=== PATIENT | female | born 1955 | race Caucasian/White ===

== ENCOUNTER 2024-05-22 20:24 | Outpatient (OUT) | payer MEDICARE, SELFPAY | END 2024-05-22 20:25 | disposition home or self-care (01) | LOC: SLEEP 20:31 | PROVIDERS: PCP Physician Assistant; Visit Provider Physician Assistant | DX: G47.33 Obstructive sleep apnea (adult) (pediatric) (principal) | CPT/HCPCS: 95810 ==

== ENCOUNTER 2024-06-01 09:09 | Outpatient (RCR) | payer MEDICARE, SELFPAY | END 2024-09-25 15:03 | disposition home or self-care (01) | LOC: OT 09:09 | PROVIDERS: PCP Physician Assistant; Visit Provider Physician Assistant | DX: I89.0 Lymphedema, not elsewhere classified (principal); E66.01 Morbid (severe) obesity due to excess calories; S81.801A Unspecified open wound, right lower leg, initial encounter; S81.802A Unspecified open wound, left lower leg, initial encounter | CPT/HCPCS: 97140; 97166; 97535 ==

== ENCOUNTER 2024-06-12 14:12 | Outpatient (OUT) | payer MEDICARE, SELFPAY | END 2024-06-12 14:13 | disposition home or self-care (01) | LOC: WC 14:12 | PROVIDERS: PCP Physician Assistant; Visit Provider Physician Assistant | DX: I87.313 Chronic venous hypertension (idiopathic) with ulcer of bilateral lower extremity (principal); L97.821 Non-pressure chronic ulcer of other part of left lower leg limited to breakdown of skin; L97.811 Non-pressure chronic ulcer of other part of right lower leg limited to breakdown of skin; I89.0 Lymphedema, not elsewhere classified | CPT/HCPCS: G0463 ==

== ENCOUNTER 2024-06-26 19:55 | Outpatient (OUT) | payer MEDICARE, SELFPAY ==
--- OUTSIDE RECORDS SUMMARY | 2024-06-26 19:58 | XMS_ITS | CCD ---
Author Organization [facility] Care Team Providers Care Generalist Name Role Phone Cathy Rangel Primary Care Provider [phone] PIPER TURPIN Referring Unavailable HEMCATHY GOMES Primary Care Unavailable CATHY RANGEL Primary Care Unavailable PIEPR TURPIN Referring Unavailable HEMCATHY GOMES Primary Care Unavailable PIPER TURPIN Referring Unavailable SHANIQUA PINA Consulting Unavailable CATHY RANGEL Primary Care Unavailable JACK BELL Admitting Unavailable JACK BELL Attending Unavailable DARREN CISNEROS Consulting Unavailable Cathy Rangel Primary Care Provider Cathy Maria Unavailable [phone] Shaw Bella MD Primary Care Provider DO Nancy Elizabeth Primary Care Provider [phone] MD Raza Castro II Attending Provider [phone] DO Nancy Elizabeth Primary Care Provider [phone] MD Raza Castro II Attending Provider CATHY RANGEL Referring Unavailable HEMCATHY GOMES Primary Care Unavailable HEMCATHY GOMES Referring Unavailable HEMCATHY GOMES Primary Care Unavailable CATHY RANGEL Referring Unavailable CATHY RANGEL Primary Care Unavailable MD Raza Castro II Attending Provider [phone] Raza Castro II Admitting UnavailRaza Disla II Attending UnavailNancy Ayala Primary Care Unavailable Raza Castro II Admitting Unavailbecky Castro II, Raza Rudolph Attending UnavailNancy Ayala Primary Care Unavailable Raza Castro II Admitting Unavailabl e Raza Castro II Attending Unavailabl e JEFFRIES, JENNIFER T Attending Unavailable SHEELA ELIZABETH Attending Unavailable CATHY RANGEL Attending Unavailable CATHY RANGEL Attending Unavailable JENNIFER JEFFRIES Attending Unavailable CATHY RANGEL Attending Unavailable CATHY RANGEL Attending Unavailable CATHY RANGEL Attending Unavailable JENNIFER JEFFRIES Attending Unavailable CATHY RANGEL Attending Unavailable Allergies Allergy Classification Reported Allergen(s) Allergy Type Date of Onset Reaction(s) Facility (5 sources) Acetaminophen / Codeine Drug Allergy 07-27-2022 Other [facility] Work Phone: Medications Current Medications Medication Drug Class(es) Dates Sig (Normalized) Sig (Original) acetaminophen 325 mg oral tablet (10 sources) Start: 05-30-2020 take 650 mg by mouth twice daily, then take 4000 mg by mouth every twenty-four hours 650 mg, Oral, 2 TIMES DAILY, First dose on Tue05/30/20 at 0900 Maximum dose of acetaminophen is 4000 mg from all sources in 24 hours. Start: 05-30-2020 acetaminophen (TYLENOL) tablet 650 mg take 2 tablets by mo [facility] twice daily acetaminophen (TYLENOL) 325 MG tablet Take 650 mg by mouth 2 times daily 0 Suspended acetaminophen 325 mg / HYDROcodone bitartrate 5 mg oral tablet (5 sources) Opioid Agonist Start: 05-31-2020 End: 06-03-2020 take 1 tablet by mouth every eight hours as needed for pain HYDROcodone-acetaminophen (NORCO) 5-325 MG per tablet Indications: Multiple subsegmental pulmonary emboli without acute cor pulmonale Take 1 tablet by mouth every 8 hours as needed for Pain for up to 3 days. 9 tablet 0 05/31/2020 06/03/2020 Active Start: 05-30-2020 HYDROcodone-ac etaminophen (NORCO) 5-325 MG per tablet 1 tablet Start: 01-19-2019 take 1 tablet by isaak every twelve hours HYDROcodone-acetaminophen (NORCO) 5-325 MG per tablet take 1 tablet by mouth every 12 hours 0 01/19/2019 Active acetaminophen 325 mg / oxyCODONE hydrochloride 5 mg oral tablet (4 sources) Opioid Agonist Start: 04-07-2022 End: 04-13-2022 take 1 tablet by mouth every six hours as needed for pain oxyCODONE-acetaminophen (PERCOCET) 5-325 MG per tablet Indications: S/P laparoscopic surgery Take 1 tablet by mouth every 6 hours as needed for Pain for up to 5 days. 18 tablet 0 04/08/2022 04/13/2022 Active Start: 04-29-2020 End: 05-06-2020 take 1 tablet by mouth every six hours as needed for pain oxyCODONE-acetaminophen (PERCOCET) 5-325 MG per tablet Indications: S/P bariatric surgery Take 1 tablet by mouth every 6 hours as needed for Pain for up to 7 days. 28 tablet 0 04/29/2020 05/06/2020 Active Start: 04-28-2020 oxyCODONE-acet aminophen (PERCOCET) 5-325 MG per tablet 2 tablet albuterol 0.833 mg/ml / ipratropium bromide 0.167 mg/ml inhalant solution (1 source) Anticholinergic, beta2-Adrenergic Agonist Start: 04-28-2020 ipratropium-albuterol (DUONEB) nebulizer solution 1 ampule apixaban 5 mg oral tablet (6 sources) Factor Xa Inhibitor Start: 12-10-2020 take 1 tablet by mouth twice daily ELIQUIS 5 MG TABS tablet take 1 tablet by mouth twice a day for 30 DAYS 0 12/10/2020 Active Start: 06-08-2020 take 1 tablet by isaak th twice daily apixaban (ELIQUIS) 5 MG TABS tablet Take 1 tablet by mouth 2 times daily 60 tablet 3 06/08/2020 Active Start: 06-08-2020 take 1 tablet by isaak th twice daily apixaban (ELIQUIS) 5 MG TABS tablet Take 1 tablet by mouth 2 times daily 60 tablet 3 06/08/2020 Active Start: 05-31-2020 End: 06-07-2020 take 2 tablets by mouth twice daily apixaban (ELIQUIS) 5 MG TABS tablet Take 2 tablets by mouth 2 times daily for 7 days 28 tablet 0 05/31/2020 06/07/2020 Active Start: 05-30-2020 End: 06-06-2020 apixaban (ELIQUIS) tablet 10 mg atorvastatin 20 mg oral tablet (20 sources) HMG-CoA Reductase Inhibitor Start: 11-10-2023 take 20 mg by mouth once daily Atorvastatin Active 20 MG PO Daily November 10, 2023 1:00am Start: 03-17-2023 take 1 tablet by isaak th once daily in the evening atorvastatin (Lipitor) 20 MG tablet Indications: Pure hypercholesterolemia (CMS/HCC) TAKE 1 TABLET BY MOUTH ONCE DAILY IN THE EVENING 90 tablet 3 03/17/2023 Active Start: 03-31-2019 take 20 mg by mouth once daily 20 mg, Oral, DAILY, First dose on Alysia 04/08/22 at 0900, Until Discontinued busPIRone hydrochloride 10 mg oral tablet (12 sources) Start: 11-10-2023 take 10 mg by mouth twice daily Buspirone Active 10 MG PO Twice daily November 10, 2023 1:00am Start: 07-12-2023 take 1 tablet by isaak th twice daily as needed for anxiety busPIRone (Buspar) 10 MG tablet Indications: Generalized anxiety disorder (CMS/HCC) Take 1 tablet (10 mg) by mouth 2 (two) times a day as needed (Anxiety). 60 tablet 2 07/12/2023 Active cyclobenzaprine hydrochloride 10 mg oral tablet (2 sources) Muscle Relaxant Start: 04-07-2022 End: 04-18-2022 take 1 tablet by mouth three times daily as needed for muscle spasms cyclobenzaprine (FLEXERIL) 10 MG tablet Take 1 tablet by mouth 3 times daily as needed for Muscle spasms 30 tablet 0 04/08/2022 04/18/2022 Active diclofenac sodium 0.01 mg/mg topical gel (7 sources) Nonsteroidal Anti-inflammatory Drug Start: 11-10-2023 Diclofenac Sodium Active 2 GM TOPICAL as directed 10 25November 10, 2023 1:00am DULoxetine 60 mg delayed release oral capsule (16 sources) Serotonin and Norepinephrine Reuptake Inhibitor Start: 11-10-2023 take 60 mg by mouth twice daily Duloxetine Active 60 MG PO Twice daily November 10, 2023 1:00am Start: 07-12-2023 End: 11-08-2023 take 1 capsule by mouth in the morning DULoxetine (Cymbalta) [address] capsule Indications: Moderate episode of recurrent major depressive disorder (HCC) (CMS/HCC) Take 1 capsule (60 mg) by mouth in the morning and 1 capsule (60 mg) before bedtime. 200 capsule 3 11/08/2023 Active Start: 12-08-2021 take 1 capsule by mo uth once daily 30 mg, Oral, DAILY, First dose on Alysia 04/08/22 at 0900, Until Discontinued Do not crush or break. May add contents of capsule to apple juice or apple sauce, but not chocolate. ergocalciferol 1.25 mg oral capsule (5 sources) Provitamin D2 Compound Start: 04-20-2024 End: 05-22-2024 take 1250 ug by mouth every week Ergocalciferol (Vitamin D2) Active 1250 MCG PO Q7D 8 60 May 22, 2024 7:56am Start: 02-03-2021 take 1 capsule by mo [facility] every week vitamin D (ERGOCALCIFEROL) 1.25 MG (03205 UT) CAPS capsule Indications: Vitamin D deficiency take 1 capsule by mouth every week 8 capsule 0 02/03/2021 Suspended 2 ml famotidine 10 mg/ml injection (1 source) Histamine-2 Receptor Antagonist Start: 04-28-2020 famotidine (PEPCID) injection 20 mg hydroCHLOROthiazide 25 mg oral tablet (20 sources) Thiazide Diuretic Start: 11-10-2023 take 25 mg by mouth once daily Hydrochlorothiazide Active 25 MG PO Daily November 10, 2023 1:00am Start: 07-14-2023 take 1 tablet by isaak th once daily hydroCHLOROthiazide (HYDRODiuril) 25 MG tablet Indications: Essential hypertension (CMS/HCC) TAKE 1 TABLET BY MOUTH ONCE DAILY 90 tablet 3 07/14/2023 Active Start: 04-08-2022 take 25 mg by mouth once daily 25 mg, Oral, DAILY, First dose on Alysia 04/08/22 at 0900, Until Discontinued Start: 01-22-2019 End: 04-29-2020 take 1 tablet by mouth once daily in the morning hydrochlorothiazide (HYDRODIURIL) 25 MG tablet take 1 tablet by mouth every morning 0 01/22/2019 04/29/2020 Discontinued (Stop Taking at Discharge) take 1 tablet by isaak th twice daily hydroCHLOROthiazide (HYDRODIURIL) 25 MG tablet Take 25 mg by mouth 2 times daily 0 Active ibuprofen 200 mg oral tablet (1 source) Nonsteroidal Anti-inflammatory Drug take 2 tablets by mouth twice daily ibuprofen (ADVIL;MOTRIN) 200 MG tablet Take 400 mg by mouth 2 times daily 0 Active levothyroxine sodium 0.125 mg oral capsule (20 sources) l-Thyroxine Start: take 125 ug by mouth once daily Levothyroxine Active 125 MCG PO Daily November 10, 2023 1:00am Start: 04-11-2023 take 1 tablet by isaak th once daily in the morning levothyroxine (Synthroid, Levoxyl) 125 MCG tablet Indications: Acquired hypothyroidism (CMS/HCC) TAKE 1 TABLET BY MOUTH ON AN EMPTY STOMACH ONCE DAILY IN THE MORNING 90 tablet 3 04/11/2023 Active Start: 04-14-2019 take 125 ug by mouth once daily 125 mcg, Oral, DAILY, First dose on Alysia 04/08/22 at 0800, Until Discontinued Tube feeding (TF) interaction, obtain physician order to manage, recommend holding TF for 30 minutes before and after dose. 2 ml midazolam 1 mg/ml injection (1 source) Benzodiazepine Start: 04-28-2020 midazolam (CUBA SED) injection 0.5 mg Multiple Vitamin (MULTI-VITAMIN DAILY PO) (3 sources) Multiple Vitamin (MULTI-VITAMIN DAILY PO) Take by mouth 0 Active Multiple Vitamin (multivitamin) capsule (5 sources) Multiple Vitamin (multivitamin) capsule as directed Orally 0 Active Multivitamin preparation (7 sources) Start: 11-10-2023 take 1 tablet by mouth once daily Multivitamin Active 1 TAB PO Daily November 10, 2023 1:00am Start: 11-10-2023 take 1 tablet by isaak th once daily Multivitamin Active 1 TAB PO Daily November 10, 2023 12:00am 24 hr nicotine 0.875 mg/hr transdermal system (1 source) Cholinergic Nicotinic Agonist Start: 05-30-2020 apply 1 dose transdermal route once daily as needed 1 patch, Transdermal, Administer over 24 Hours, DAILY PRN, if patient is a smoker and requests nicotine replacemnt therapy, Starting Tue05/30/20 at 0522 Apply new patch to nonhairy, clean, dry skin on the upper body or upper outer arm. Rotate patch sites. Notify pharmacy if patient or provider prefers patch to be removed at bedtime and replaced in the morning. Hazardous Medication -- Refer to facility policy for handling and disposal. oxybutynin chloride 5 mg oral tablet (20 sources) Cholinergic Muscarinic Antagonist Start: 11-10-2023 take 5 mg by mouth once daily Oxybutynin Chloride Active 5 MG PO Daily November 10, 2023 1:00am Start: 08-05-2023 take 1 tablet by isaak th twice daily oxybutynin (Ditropan) 5 MG tablet Indications: Urinary incontinence, unspecified type TAKE 1 TABLET BY MOUTH TWICE DAILY 180 tablet 3 08/05/2023 Active Start: 04-14-2019 take 5 mg by mouth twice daily 5 mg, Oral, 2 TIMES DAILY, First dose on Tue04/08/22 at 0900, Until Discontinued pantoprazole 20 mg delayed release oral tablet (20 sources) Proton Pump Inhibitor Start: 11-10-2023 take 20 mg by mouth once daily Pantoprazole Active 20 MG PO Daily November 10, 2023 1:00am Start: 04-11-2023 take 1 tablet by isaak th once daily pantoprazole (ProtoNix) 20 MG EC tablet Indications: GERD without esophagitis TAKE 1 TABLET BY MOUTH ONCE DAILY 90 tablet 3 04/11/2023 Active Start: 07-08-2021 take 20 mg by mouth once daily 20 mg, Oral, DAILY, First dose on Tue04/08/22 at 0900, Until Discontinued Do not crush or break. Start: 04-28-2021 take 1 tablet by isaak th once daily pantoprazole (PROTONIX) 20 MG tablet take 1 tablet by mouth once daily 30 tablet 3 04/28/2021 Active Start: 12-23-2020 take 1 tablet by isaak th once daily pantoprazole (PROTONIX) 20 MG tablet take 1 tablet by mouth once daily 30 tablet 3 12/23/2020 Active Start: 12-19-2019 take 20 mg by mouth once daily 20 mg, Oral, DAILY, First dose on Tue05/30/20 at 0900 Do not crush or break. polyethylene glycol [id number] mg powder for oral solution (1 source) Osmotic Laxative Start: 05-30-2020 17 g, Oral, D AILY PRN, Constipation, Starting Tue05/30/20 at 0522 First line therapy for constipation Promethazine (4 sources) Phenothiazine Start: 05-30-2020 promethazine ( PHENERGAN) tablet 12.5 mg Start: 04-28-2020 End: 05-06-2020 take 1 tablet by mouth every six hours as needed for nausea promethazine (PHENERGAN) 25 MG tablet Take 1 tablet by mouth every 6 hours as needed for Nausea 30 tablet 0 04/29/2020 05/06/2020 Active Start: 04-28-2020 promethazine ( PHENERGAN) injection 12.5 mg 72 hr scopolamine 0.0139 mg/hr transdermal system (1 source) Anticholinergic Start: 04-28-2020 scopolamine (TRANSDERM-SCOP) transdermal patch 1 patch warfarin sodium 2.5 mg oral tablet (15 sources) Vitamin K Antagonist Start: 11-10-2023 Warfarin Active 2.5 MG PO Every 48 hours November 10, 2023 1:00am on odd numbered days Start: 11-08-2023 take 1 tablet by isaak once daily warfarin (Coumadin) 2.5 MG tablet Indications: Personal history of pulmonary embolism Take 1 tablet (2.5 mg) by mouth See administration instructions 5 mg daily except for 2.5 mg on Tuesday. 200 tablet 3 11/08/2023 Active Start: 10-31-2023 End: 11-07-2023 warfarin (Coumadin) 2.5 MG t ablet Indications: Personal history of pulmonary embolism TAKE 2 TABLETS BY MOUTH ONCE DAILY EXCEPT FOR 1 TABLET ON TUESDAY AND TUESDAY . AND ON TUESDAY TAKE 1 AND 1/2 TABLETS 98 tablet 3 10/31/2023 11/07/2023 Discontinued Start: 04-08-2022 End: 04-09-2022 warfarin (COUMADIN) tablet 5 mg Start: 12-31-2021 take 2 tablets by mo [facility] once daily warfarin (COUMADIN) 2.5 MG tablet Take 2 tablets by mouth as directed every day, EXCEPT for 3 tablets on Tuesday and Tuesday. 0 12/31/2021 Suspended zolpidem tartrate 5 mg oral tablet (12 sources) gamma-Aminobutyric Acid-ergic Agonist Start: 07-12-2023 End: 07-11-2024 take 5 mg by mouth once daily at bedtime Zolpidem Active 5 MG PO Daily at bedtime November 10, 2023 1:00am Completed/Discontinued Medications Medication Drug Class(es) Dates Sig (Normalized) Sig (Original) Aspirin-Acetaminoph en-Caffeine (EXCEDRIN EXTRA STRENGTH PO) (6 sources) End: 04-29-2020 Aspirin-Acetaminophe n-Caffeine (EXCEDRIN EXTRA STRENGTH PO) Take by mouth 0 04/29/2020 Discontinued (Stop Taking at Discharge) Aspirin-Acetamin ophen-Caffeine (EXCEDRIN EXTRA STRENGTH PO) Take by mouth 0 Suspended Aspirin-Acetamin ophen-Caffeine (EXCEDRIN EXTRA STRENGTH PO) Take by mouth 0 Active 30 ml bupivacaine hydrochloride 5 mg/ml injection (1 source) Amide Local Anesthetic Start: 04-28-2020 End: 04-28-2020 bupivacaine (PF) (MARCAINE) 0.5 % injection 200 mg Start: 04-28-2020 End: 04-28-2020 bupivacaine (PF) (MARCAINE) 0.5 % injection 200 mg Calcium Carbonate Antacid (T UMS PO) (4 sources) Calcium Carbonat e Antacid (TUMS PO) Take by mouth 0 Suspended Calcium Carbonat e Antacid (TUMS PO) Take by mouth 0 Active calcium chloride 0.0014 meq/ ml / potassium chloride 0.004 meq/ml / sodium chloride 0.103 meq/ml / sodium lactate 0.028 meq/ml injectable solution (3 sources) Start: 04-07-2022 End: 04-07-2022 IntraVENous, at 120 mL/hr, CONTINUOUS, Starting on Tue04/07/22 at 1245 Start: 04-28-2020 End: 04-28-2020 lactated ringers infusion ceFAZolin (ANCEF) 1 g in dextrose 5 % 50 mL IVPB (1 source) Start: 04-28-2020 End: 04-28-2020 ceFAZolin (ANCEF) 1 g in dextrose 5 % 50 mL IVPB cholecalciferol 1000 unt oral capsule (3 sources) Vitamin D End: 04-29-2020 vitamin D 25 MCG (1000 UT) CAPS Take by mouth 0 04/29/2020 Discontinued (Stop Taking at Discharge) 0.4 ml enoxaparin sodium 100 mg/ml prefilled syringe (1 source) Low Molecular Weight Heparin Start: 04-07-2022 End: 04-08-2022 inject 40 mg by subcutaneous injection once daily 40 mg, SubCUTAneous, DAILY, First dose on Tue04/07/22 at 1300, Until Discontinued Indication of Use: Prophylaxis-DVT/ PE eszopiclone 2 mg oral tablet (1 source) take 1 tablet by mouth once daily as needed eszopiclone (LUNESTA) 2 MG TABS Take 2 mg by mouth nightly. prn 0 Suspended famotidine (PEPCID) 20 mg in sodium chloride (PF) 10 mL injection (1 source) Start: 04-07-2022 End: 04-08-2022 take 20 mg intravenously twice daily 20 mg, IntraVENous, 2 TIMES DAILY, First dose on Tue04/07/22 at 1300, Until Discontinued IV Push over minimum of 2 minutes - Dilute with 10 mL NS 2 ml fentaNYL 0.05 mg/ml injection (1 source) Opioid Agonist Start: 04-28-2020 End: 04-28-2020 fentaNYL (SUBLIMAZE) injection 50 mcg 1 ml heparin sodium, porcine 1000 unt/ml injection (4 sources) Unfractionated Heparin, Anti-coagulant Start: 05-30-2020 End: 05-30-2020 heparin (porcine) injection 7,910 Units Start: 05-30-2020 End: 05-30-2020 heparin 25,000 units in dext jia 5% 250 mL infusion Start: 04-28-2020 End: 04-28-2020 heparin (porcine) injection 5,000 Units 1 ml HYDROmorphone hydrochloride 1 mg/ml cartridge (2 sources) Opioid Agonist Start: 04-07-2022 End: 04-08-2022 HYDROmorphone (DILAUDID) 1.5mg IV is equivalent to morphine 10mg IV 1 mg, IntraVENous, EVERY 3 HOURS PRN, 6 doses, Starting on Tue04/07/22 at 2003, Until Alysia 04/08/22 at 0727, Pain Severe (7-10) If oral and IV narcotics ordered, use oral first and only use IV if oral is ineffective or cannot take oral. Do Not give oral and IV within 1 hour of each other unless specifically ordered. Start: 04-28-2020 HYDROmorphone (DILAUDID) injection 1 mg Iohexol (1 source) Radiographic Contrast Agent Start: 05-30-2020 End: 05-30-2020 iohexol (OMNIPAQUE 350) solution 75 mL iohexol (OMNIPAQUE 240) injection 30 mL (1 source) Start: 04-29-2020 End: 04-29-2020 iohexol (OMNIPAQUE 240) injection 30 mL iohexol (OMNIPAQUE 240) injection 50 mL (2 sources) Start: 04-07-2022 End: 04-07-2022 iohexol (OMNIPAQUE 240) injection 50 mL Start: 05-30-2020 End: 05-30-2020 iohexol (OMNIPAQUE 240) inje ction 50 mL iopamidol (ISOVUE-370) 76 % injection 75 mL (1 source) Start: 04-07-2022 End: 04-07-2022 iopamidol (ISOVUE-370) 76 % injection 75 mL 100 ml magnesium sulfate 40 mg/ml injection (3 sources) Start: 04-08-2022 End: 04-08-2022 magnesium sulfate 4000 mg in 100 mL IVPB premix Start: 05-30-2020 take 1 mg intravenous route every hour as needed 1 g, Intravenous, at 100 mL/hr, Administ er over 1 Hours, PRN, Other, Per IV Magnesium Replacement Protocol, Starting Tue05/30/20 at 0522 Mg Lab Replacement Action 1.4- 1.6 1 gram IVPB x 2 doses &nb sp; (2 gram Total) 1.0-1.3 1 gram IVPB x 4 doses &nb sp; (4 gram Total) <1.0 CALL PHYSICIAN and &n bsp; 1 gram IVPB x 4 doses (4 gram Total) Infuse at 1 gram/hr Repeat Mag level next AM Protocol not for use in Patients with CrCl<30ml/min Start: 05-30-2020 End: 05-30-2020 magnesium sulfate 2 g in 50 mL IVPB premix 100 ML metroNIDAZOLE 5 MG/ML Injection (1 source) Nitroimidazole Antimicrobial Start: 04-28-2020 End: 04-29-2020 metronidazole (FLAGYL) 500 mg in NaCl 100 mL IVPB premix 1 ml morphine sulfate 4 mg/ml cartridge (2 sources) Opioid Agonist Start: 05-30-2020 End: 05-30-2020 morphine injection 4 mg Start: 05-30-2020 End: 05-30-2020 morphine injection 4 mg Multiple Vitamins-Minerals ( CELEBRATE MULTI-COMPLETE 36) CHEW (4 sources) Multiple Vitamin s-Minerals (CELEBRATE MULTI-COMPLETE 36) CHEW Take by mouth 0 Suspended Multiple Vitamin s-Minerals (CELEBRATE MULTI-COMPLETE 36) CHEW Take by mouth 0 Active Multiple Vitamins-Minerals (CENTRUM SILVER PO) (3 sources) End: 04-29-2020 Multiple Vitamins-Minerals (CENTRUM SILVER PO) Take by mouth 0 04/29/2020 Discontinued (Stop Taking at Discharge) Multiple Vitamin s-Minerals (CENTRUM SILVER PO) Take by mouth 0 Suspended Multiple Vitamin s-Minerals (CENTRUM SILVER PO) Take by mouth 0 Active naproxen 200 mg oral tablet (2 sources) Nonsteroidal Anti-inflammatory Drug End: 04-28-2020 take 200 mg by mouth twice daily Naproxen Sodium (ALEVE PO) Take 200 mg by mouth 2 times daily 0 04/28/2020 Discontinued (Stop Taking at Discharge) 2 ml ondansetron 2 mg/ml injection (2 sources) Serotonin-3 Receptor Antagonist Start: 04-07-2022 4 mg, IntraVENous, EVERY 6 HOURS PRN, Starting on Tue04/07/22 at 1225, Until Discontinued, Nausea, Vomiting Start: 04-28-2020 ondansetron (Z OFRAN) injection 4 mg phytonadione (ADULT) (VITAMIN K) 10 mg in dextrose 5 % 100 mL IVPB (1 source) Start: 04-07-2022 End: 04-07-2022 phytonadione (ADULT) (VITAMIN K) 10 mg in dextrose 5 % 100 mL IVPB microencapsulated potassium chloride 20 meq extended release oral tablet (9 sources) Start: 06-18-2021 take 1 tablet by mouth once daily potassium chloride (KLOR-CON M) 20 MEQ extended release tablet Indications: Hypokalemia take 1 tablet by mouth once daily 90 tablet 1 06/18/2021 Suspended Start: 12-17-2020 take 1 tablet by isaak th once daily potassium chloride (KLOR-CON M) 20 MEQ extended release tablet Indications: Hypokalemia Take 1 tablet by mouth daily 90 tablet 1 12/17/2020 Active Start: 05-31-2020 take 1 tablet by isaak th once daily potassium chloride (KLOR-CON M) 20 MEQ extended release tablet Take 1 tablet by mouth daily 90 tablet 1 05/31/2020 Active Start: 05-30-2020 potassium chlo ride (KLOR-CON M) extended release tablet 40 mEq Start: 05-30-2020 potassium chlo ride (KLOR-CON M) extended release tablet 40 mEq Start: 05-30-2020 End: 05-30-2020 potassium chloride 10 mEq/10 0 mL IVPB (Peripheral Line) Start: 04-28-2020 End: 04-28-2020 potassium chloride 10 mEq/10 0 mL IVPB (Peripheral Line) 5 ml sodium chloride 9 mg/ml injection (10 sources) Start: 04-07-2022 10 mL, IntraVE Nous, EVERY 12 HOURS SCHEDULED (2 times per day), First dose on Tue04/07/22 at 2100, Until Discontinued Start: 04-07-2022 sodium chlorid e flush 0.9 % injection 5-40 mL Start: 04-07-2022 IntraVENous, a t 5-250 mL/hr, PRN, if patient receiving piggyback infusions and maintenance fluids are not ordered OR KVO fluids to protect IV site / prevent frequent line interruptions/ long duration, Starting on Tue04/07/22 at 1225 For piggyback infusion, administer at same rate as piggyback for a total of 25 mL. Enter 25 mL into dose field and piggyback rate into rate field of order. If piggyback is infusing at a rate less than 100 mL/hr, enter 25 mL into dose field and 100 mL/hr into rate field of order. For KVO fluids, enter rate of 20 mL/hr or less into rate field of order. Start: 04-07-2022 take 10 mL intraveno usly once as needed 10 mL, IntraVENous, PRN, Starting on Tue04/07/22 at 1225, Until Discontinued, Line Care, After every IV line use Start: 05-30-2020 10 mL, Intrave nous, EVERY 12 HOURS SCHEDULED (2 times per day), First dose on Tue05/30/20 at 2100 Start: 05-30-2020 take 10 mL intraveno us route once as needed 10 mL, Intravenous, PRN, Line Care, After every IV line use, Starting Tue05/30/20 at 1656 Start: 05-30-2020 End: 05-30-2020 0.9 % sodium chloride bolus Start: 04-28-2020 sodium chlorid e flush 0.9 % injection 10 mL Problems Active Problems Problem Classification Problem Date Documented Da te Episodic/Chronic Anxiety disorders (12 sources) Mixed anxiety and depressive disorder; Translations: [Other specified anxiety disorders] Onset: 3 02-10-2023 Chronic Diseases of white blood cells (5 sources) Eosinophil count raised; Translations: [Eosinophilia] Onset: 3 02-10-2023 Chronic Disorders of lipid metabolism (16 sources) Hyperlipidemia; Translations: [Hyperlipidemia, unspecified] Onset: 9 07-09-2019 Chronic Esophageal disorders (8 sources) Gastroesophageal reflux disease with hiatal hernia; Translations: [Gastro-esophageal reflux disease without esophagitis] Onset: 9 Resolved: 0 09-25-2020 Chronic Essential hypertension (20 sources) Essential hypertension; Translations: [Essential (primary) hypertension] Onset: 9 07-09-2019 Chronic Genitourinary symptoms and ill-defined conditions (5 sources) Urinary incontinence; Translations: [Unspecified urinary incontinence] Onset: 3 02-10-2023 Chronic Intestinal obstruction without hernia (4 sources) Small bowel obstruction; Translations: [Unspecified intestinal obstruction, unspecified as to partial versus complete obstruction] Onset: 2 Episodic Menopausal disorders (5 sources) Decreased estrogen level; Translations: [Other primary ovarian failure] Onset: 3 02-10-2023 Chronic Miscellaneous mental health disorders (7 sources) Primary insomnia; Translations: [Primary insomnia] Onset: 3 02-10-2023 Chronic Mood disorders (7 sources) Recurrent major depressive episodes, moderate ; Translations: [Major depressive disorder, recurrent, moderate] Onset: 3 02-10-2023 Chronic Nutritional deficiencies (9 sources) Vitamin D deficiency; Translations: [Vitamin D deficiency, unspecified] Onset: 1 Chronic Osteoarthritis (20 sources) Arthritis; Translations: [Unspecified osteoarthritis, unspecified site] Onset: 9 07-09-2019 Chronic Osteoporosis (3 sources) Osteoporosis; Translations: [Age-related osteoporosis without current pathological fracture] Onset: 4 03-26-2024 Chronic Other aftercare (2 sources) Long-term current use of drug therapy; Translations: [Other terminologist (current) drug therapy] 03-26-2024 Episodic Other aftercare (1 source) Other terminologist (current) drug therapy; Translations: [Other custodial (current) drug therapy] Onset: 4 Episodic Other circulatory disease (1 source) Other specified symptoms and signs involving the circulatory and respiratory systems; Translations: [Other specified symptoms and signs involving the circulatory and respiratory systems] Onset: 4 Episodic Other diseases of bladder and urethra (14 sources) Overactive bladder; Translations: [Overactive bladder] Onset: 9 07-09-2019 Chronic Other diseases of veins and lymphatics (3 sources) Lymphedema of bilateral lower limbs; Translations: [Lymphedema, not elsewhere classified] 03-26-2024 Chronic Other diseases of veins and lymphatics (4 sources) Lymphedema, not elsewhere classified; Translations: [Other lymphedema] Onset: 4 03-26-2024 Chronic Other gastrointestinal disorders (6 sources) Intestinal malabsorption; Translations: [Intestinal malabsorption, unspecified] Onset: 2 01-11-2022 Chronic Other nervous system disorders (5 sources) Chronic pain; Translations: [Other chronic pain] Onset: 9 07-12-2023 Chronic Other non-traumatic joint disorders (5 sources) Derangement of right shoulder joint; Translations: [Other specific joint derangements of right shoulder, not elsewhere classified] Onset: 3 02-10-2023 Chronic Other non-traumatic joint disorders (16 sources) Pain in right knee; Translations: [Pain in joint, lower leg] Onset: 3 02-10-2023 Episodic Other nutritional; endocrine; and metabolic disorders (2 sources) Morbid obesity; Translations: [Morbid obesity (HCC)] Chronic Other nutritional; endocrine; and metabolic disorders (7 sources) Obesity; Translations: [Obesity, unspecified] Onset: 3 07-12-2023 Chronic Other skin disorders (1 source) Swollen calf; Translations: [Swelling of calf] Episodic Prolapse of female genital organs (5 sources) Midline cystocele; Translations: [Cystocele, midline] Onset: 3 02-10-2023 Chronic Pulmonary heart disease (20 sources) Pulmonary embolism; Translations: [H/O: pulmonary embolus] Onset: 0 Resolved: 3 05-30-2020 Episodic Pulmonary heart disease (3 sources) 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; Translations: [Pulmonary embolism and infarction (HCC)] Onset: 0 05-30-2020 Residual codes; unclassified (16 sources) Obstructive sleep apnea syndrome; Translations: [Obstructive sleep apnea (adult) (pediatric)] Onset: 9 Resolved: 9 07-09-2019 Chronic Residual codes; unclassified (1 source) History of laparoscopy; Translations: [Other specified postprocedural states] Episodic Substance-related disorders (1 source) Nicotine dependence, unspecified, uncomplicated; Translations: [Nicotine dependence, unspecified, uncomplicated] Onset: 4 Chronic Thyroid disorders (16 sources) Hypothyroidism; Translations: [Hypothyroidism, unspecified] Onset: 9 07-09-2019 Chronic Unclassified (3 sources) No additional problems on file Unclassified (1 source) Unilateral primary osteoarthritis, right hip; Translations: [Unilateral primary osteoarthritis, right hip] Onset: 4 Unclassified (1 source) Pain in right knee; Translations: [Pain in right knee] Onset: 4 Past or Other Problems Problem Classification Problem Date Documented Da te Episodic/Chronic Diabetes mellitus without complication (5 sources) Impaired fasting glycemia; Translations: [Impaired fasting glucose] Onset: 3 02-10-2023 Episodic Esophageal disorders (6 sources) Gastroesophageal reflux disease with hiatal hernia; Translations: [Hiatal hernia with GERD] Onset: 9 08-07-2019 Episodic Fluid and electrolyte disorders (20 sources) Disorder of electrolytes; Translations: [Hypokalemia] Onset: 0 05-30-2020 Episodic Mood disorders (5 sources) Mood disorders Onset: 3 07-12-2023 Other aftercare (5 sources) Long-term current use of anticoagulant; Translations: [termite control technician (current) use of anticoagulants] Onset: 1 07-12-2023 Episodic Other connective tissue disease (5 sources) Muscle weakness of upper limb; Translations: [Other symptoms and signs involving the musculoskeletal system] Onset: 3 02-10-2023 Episodic Other gastrointestinal disorders (13 sources) History of bariatric surgical procedure; Translations: [Bariatric surgery status] Onset: 0 04-28-2020 Episodic Other gastrointestinal disorders (9 sources) History of bypass of stomach; Translations: [Bariatric surgery status] Onset: 0 Resolved: 3 Episodic Other gastrointestinal disorders (5 sources) Constipation; Translations: [Constipation, unspecified] Onset: 7 07-12-2023 Episodic Other hematologic conditions (5 sources) Red blood cell finding; Translations: [Other abnormality of red blood cells] Onset: 3 02-10-2023 Episodic Other lower respiratory disease (5 sources) Snoring; Translations: [Snoring] Onset: 8 Resolved: 3 07-12-2023 Episodic Other non-traumatic joint disorders (5 sources) Pain in left knee; Translations: [Pain in joint, lower leg] Onset: 3 02-10-2023 Episodic Other non-traumatic joint disorders (5 sources) Ankle edema; Translations: [Effusion, unspecified ankle] Onset: 8 07-12-2023 Episodic Other nutritional; endocrine; and metabolic disorders (9 sources) Body mass index 30+ - obesity; Translations: [Obesity, unspecified] Onset: 9 Resolved: 1 07-09-2019 Chronic Other nutritional; endocrine; and metabolic disorders (4 sources) Body mass index 25-29 - overweight; Translations: [Overweight] Onset: 0 Episodic Residual codes; unclassified (1 source) History of hernia repair; Translations: [Other specified postprocedural states] Onset: 1 12-22-2020 Episodic Varicose veins of lower extremity (5 sources) Venous varices; Translations: [Asymptomatic varicose veins of unspecified lower extremity] Onset: 3 02-10-2023 Episodic Results Test Name Value Interpretation Reference Range Facility A1C with Estimated Average G luon 04-18-2024 Glucose [Mass/Vol] 131 mg/dL Normal [facility] Comment on above: Result Comment: PERF ORMED BY: [place] [address] PATHOLOGIST ORACLE SECURITY CONSULTANT TODD MA M.D. Performed By: #### H GB, ALB, [id number], A1C [facility] JAI Haley #### [address] #### NICOTINE #### [facility] , A1C with Estimated Average G luOrdered By: Raza Castro on 04-18-2024 HbA1c (Bld) [Mass fraction] 6.2 % High 4.3-5.6 [facility] Comment on above: Result Comment: Incr eased risk for diabetes: 5.7 - 6.4 diabetes: >6.4 glycemic control for adults with diabetes: <7.0 Performed By: #### H GB, ALB, [id number], A1C WTH eA, CUMRSA #### [facility] [address] [place] [address] [place] #### NICOTINE #### [facility] , Increased risk for d iabetes: 5.7 - 6.4diabetes: >6.4glycemic control for adults with diabetes: <7.0 Albumin Levelon 04-18-2024 Albumin [Mass/Vol] 3.9 g/dL Normal 3.5-5.7 [facility] Comment on above: Performed By: #### H GB, ALB, [id number], A1C WTH eA, CUMRSA #### [facility] [address] [place] [id number] [place] #### NICOTINE #### [facility] , Albumin [Mass/volume] in Ser um or Plasma by Bromocresol green (BCG) dye binding methoOrdered By: Raza Castro on 04-18-2024 Albumin BCG dye [Mass/Vol] 3.9 g/dL 3.5-5.7 [facility] Cotinine [Mass/volume] in Se rum or PlasmaOrdered By: Raza Castro on 04-18-2024 Cotinine [Mass/Vol] <1.0 ng/mL . [facility] Comment on above: This test was develo ped and its performance characteristicsdetermined by [facility]. It has not been cleared orapproved by the Food and Drug Administration.Cotinine levels greater than 20.0 are consistent with theuse of tobacco or tobacco cessation products.Performed at: [address] [id number] Director: Antonio Sanchez MD, Phone: [phone] Glucose mean value [Mass/vol ume] in Blood Estimated from glycated hemoglobinOrdered By: Raza Castro on 04-18-2024 Average glucose Estimated from glycated hemoglobin (Bld) [Mass/Vol] 131 mg/dL [facility] Hemoglobin [Mass/volume] in BloodOrdered By: Raza Castro on 04-18-2024 Hemoglobin (Bld) [Mass/Vol] 13.1 g/dL 11.8-15.4 [facility] Comment on above: Result Comment: PERF ORMED BY: [address] [place] [address] PATHOLOGIST ORACLE SECURITY CONSULTANT TODD MA M.D. Performed By: #### H GB, ALB, [id number], A1C WTH eA, CUMRSA #### [facility] [address] [place] [address] [place] #### NICOTINE #### [facility] , MRSA Cultureon 04-18-2024 MRSA Culture MRSA Culture Results No MRSA Isolated 2 Days PERFORMED BY: [place] [address] PATHOLOGIST ORACLE SECURITY CONSULTANT TODD MA M.D. Normal [facility] Comment on above: Performed By: #### H GB, ALB, [id number], A1C WTH eA, CUMRSA #### [facility] [address] [place] [address] [place] #### NICOTINE #### [facility] , Nicotine [Mass/volume] in Se rum or PlasmaOrdered By: Raza Castro on 04-18-2024 Nicotine [Mass/Vol] <1.0 ng/mL . [facility] Comment on above: This test was develo ped and its performance characteristicsdetermined by [facility]. It has not been cleared orapproved by the Food and Drug Administration.Nicotine levels greater than 2.0 are consistent with theuse of tobacco or tobacco cessation products. Nicotine/Cotinine Bloodon Cotinine, Blood <1.0 Normal . [facility] Comment on above: Result Comment: This test was developed and its performance characteristics determined by [facility]. It has not been cleared or approved by the Food and Drug Administration. Cotinine levels greater than 20.0 are consistent with the use of tobacco or tobacco cessation products. Performed at: [address] [id number] Alarm Service Technician: Antonio Sanchez MD, Phone: [phone] PERFORMED BY: [place] [id number] PATHOLOGIST ORACLE SECURITY CONSULTANT TODD MA M.D. Performed By: #### H GB, ALB, [id number], A1C WTH eA, CUMRSA #### [place] [address] [place] #### NICOTINE #### [facility] , Nicotine, Blood <1.0 Normal . [facility] Comment on above: Result Comment: This test was developed and its performance characteristics determined by [facility]. It has not been cleared or approved by the Food and Drug Administration. Nicotine levels greater than 2.0 are consistent with the use of tobacco or tobacco cessation products. Performed By: #### H GB, ALB, [id number], A1C WTH eA, CUMRSA #### [address] #### NICOTINE #### [facility] , Vitamin D 25 Hydroxy Totalon 04-18-2024 Vitamin D 25 Hydroxy Total 19.4 ng/mL Low 30-100 [facility] Comment on above: Result Comment: YARY MIN D STATUS 25(OH)VITAMIN D RANGE (ng/mL) Deficient <20 Insufficient 20 to <30 Sufficient 30 to 100 Reference: Lex MF,Wilfredo NC, Cam MIMS, et al. Evaluation,treatment, and prevention of vitamin D deficiency; an Endocrine Society clinical practice guideline. JCEM. 2010; 96(7):1911-30. PERFORMED BY: [address] [place] [address] PATHOLOGIST ORACLE SECURITY CONSULTANT TODD MA M.D. Performed By: #### H GB, ALB, [id number], A1C WTH eA, CUMRSA #### [place] [address] [place] #### NICOTINE #### [facility] , Vitamin D+Metabolites [Mass/ volume] in Serum or PlasmaOrdered By: Raza Castro on 04-18-2024 Vitamin D+Metabolites [Mass/Vol] 19.4 ng/mL Low 30-100 [facility] Comment on above: VITAMIN D STATUS 25( OH)VITAMIN D RANGE (ng/mL) Deficient <20 Insufficient 20 to <30Sufficient 30 to 100Reference: Lex MF,Wilfredo NC, Cam MIMS, et al. Evaluation,treatment, and prevention of vitamin D deficiency; an Endocrine Society clinical practice guideline. JCEM. 2010; 96(7):1911-30. Wound methicillin resistant Staphylococcus aureus (MRSA) cultureOrdered By: Raza Castro on 04-18-2024 MRSA isol Org specific cx Ql (Unsp spec) [facility] XR hip RT min 2V(w/wo pelvis )*on 12-08-2023 XR hip RT min 2V(w/wo pelvis)* [facility] Main [place] [address] [place] [address] XRay Report Signed Patient: Alfredo Sosa MR#: [id number] : 1955 Acct:[id number] Age/Sex: 68 / F ADM Date: 12/08/23 Loc: [facility] Room: Type: [facility] Attending Dr: Raza Castro II, MD Copies to: Raza Castro MD Ordering Provider: Raza Castro MD Date of Service: 12/08/23 XR/XR hip RT min 2V(w/wo pelvis)*: M16.11 - Unilateral primary osteoarthritis, right hip AP PELVIS AND RIGHT HIP - 2 views: CLINICAL HISTORY: Right hip pain radiating to the knee for months. No reported injury. COMPARISON: 11/10/2023 AP weightbearing view of the pelvis and crosstable lateral view of the right hip were obtained. There is no acute fracture or dislocation. There is again noted to be narrowing of the right hip joint space. There is also marginal spurring at the periphery of the femoral head and superior acetabulum on that side. There is no significant degenerative change at the left hip. The SI joints are intact and show minimal sclerosis. There is minor degenerative disease at the lower imaged lumbar spine. There are no significant soft tissue abnormalities. XR/XR hip RT min 2V(w/wo pelvis)* IMPRESSION: MODERATE DEGENERATIVE CHANGE AT THE RIGHT HIP. Impression dictated by: Cathy Dias M.D.12/08/2023 10:05 AM Dictation Location: RADIO-PC-12 Transcribed By: PWS 12/08/23 1005 Dictated By: Cathy Dias MD 12/08/23 1003 Signed By: 12/08/23 100 Normal [facility] XR knee RT 4V*on 11-10-2023 XR knee RT 4V* [facility] Main [address] [address] XRay Report Signed Patient: Alfredo Sosa MR#: [id number] : 1955 Acct:[id number] Age/Sex: 68 / F ADM Date: 11/10/23 Loc: [facility] Room: Type: REG CLI Attending Dr: Raza Castro II, MD Copies to: Raza Castro MD Ordering Provider: Raza Castro MD Date of Service: 11/10/23 XR/XR knee RT 4V*: M25.561 - Pain in right knee RIGHT KNEE - 4 views CLINICAL HISTORY: Right knee pain for years. COMPARISON: None FINDINGS: Moderate joint effusion. Moderate degenerative changes with patellofemoral joint space narrowing. No acute bony process. Bones are grossly demineralized. XR/XR knee RT 4V* IMPRESSION: MODERATE DEGENERATIVE CHANGES OF THE RIGHT KNEE WITHOUT ACUTE BONY PROCESS. Impression dictated by: Ravinder Cunningham Jr., D.O.11/10/2023 3:16 PM Dictation Location: RADIO-PC-14 Transcribed By: [facility] 11/10/231515 Dictated By: Ravinder Cunningham Jr, DO 11/10/23 1515 Signed By: 11/10/23 151 Normal [facility] XR pelvis 1-2Von 11-10-2023 XR pelvis 1-2V [facility] Main [address] [address] XRay Report Signed Patient: Alfredo Sosa MR#: [id number] : 1955 Acct:[id number] Age/Sex: 68 / F ADM Date: 11/10/23 Loc: [facility] Room: Type: REG CLI Attending Dr: Raza Castro II, MD Copies to: Raza Castro MD Ordering Provider: Raza Castro MD Date of Service: 11/10/23 XR/XR pelvis 1-2V: M25.561 - Pain in right knee AP PELVIS: CLINICAL HISTORY: Right knee pain for years. COMPARISON: None Mild left and moderate right degenerative changes of the hips without acute bony process. XR/XR pelvis 1-2V IMPRESSION: MILD LEFT AND MODERATE RIGHT DEGENERATIVE CHANGES OF THE HIPS WITHOUT ACUTE BONY PROCESS. Impression dictated by: Ravinder Cunningham Jr., D.O.11/10/2023 3:16 PM Dictation Location: [place] [address] Transcribed By: [facility] 11/10/23 151 Dictated By: Ravinder Cunningham Jr, DO 11/10/231515 Signed By: 11/10/23 151 Normal [facility] Coding Summaryon 04-19-2022 Coding Summary HTMLBase 64 NvbqcajlGEr5wTj+PGhlYWQ+P J5RUQHzY79ixOWddU9JO7eCNX 3MSQWQCDJORL7EGF1rtVU9XKf sK2GvimJm KbdecJDrOO63TIv7FZU7pRvuD MkgzK8zxIFyH9t6ZgCxDI45nP 48XQsfEHEmOqH3CsSoctmshWM y T9tzUfPhvPObZpd+PHRhYmxlI HdpZHRoPScxMDAlJyBzdHlsZT 5zQo3tKSDmDFRneLqpqWSbRaY j h3oySOByTRwoES0noGflC5Lpf VP0NQEok2c3Sn52jUK+PHRkIH Q1uWyoLPsot949WvErj3upNDA 3 zLHwVLjoCFH3Z99zj0Q1DUVpP UPeQOY5eFH4yW0wnXxymvfkP3 KaiGLkYyH4DMO7eMSocL1myIs n ftemxM1wOha+Q86YSF1FSJEBY V9ODhn3J3VnOwjuhJR+PC90YW KbXQ30aPWdwNUgv0tdyZh5WxU w ZKTxCZH2sHyqVHasr5YhCFCzP 93igSYmb0B7KINeqShomHImDy SawZU7kT1wVGsqatbsv7krjqd n Vtzwn2jkto79rF07K25jOIsrS NSvTDB6WLXgPZTaoAwzrr9miW 9wIi8+HJcyo4lma9fxbCf5RaW w DRYokxUbnSshKYB7x3OgLr67O 1SieRqvv1CtTff8ok66oONrv9 H9mAX5XWarUREqeN5iGJuaIuD 6 ZODqGxYheD36xPFmKKvzMz1uu MogxSyaUE4mVGNaiewtKSKfeD 0yAXYirZDvrJycZE6mUNQtwuu m x627WpZuFWY8AWRrjKDxU6Ysm I9bWcOxTURfOOWhW5XngSBlYC qpK048IHrtHuS5OMRwhsMfW7J s URUyrBlaSaW0h9T1No7Bn7Rwv sjyWVO4RHjlUVI3QbM4HtRiQv C2Z2TxBhu4FXJajCvuNQ1qG9P h CYCmtiaarggtrMO3TMSgJPYku F93uRKbTSnnOv3md1H3f225XF FyGJWyeV36Ul0hhFwpXLKztDZ U mY1vahleh1uswihtLqCgWCHkF Cb1BRt8TGXwtZxiJzEcQGG7Wz C5BGA5gELjcQ7riVnwrykfrM4 w Oyc+E87hbH0sKHH4YPM9lhapW RNfefCsZE93VK48K2HoGttnhP FibGU+USFwxhApdKvdIB9fAmQ j y8kpn9RnZJeaI3OoOLGmXBnlE il1JXRsHYN5vNR9uK5sPQBeYG xdo6T0nQF3L6GgjdLnvo7ah2q s YCPtXEebD13sxHEqa0P6NZPxg ND2JBJruNuyNeWyvV64Gtl+PG PqtCsct3YsTjqkl9htu5fjjGs 9 BmSrYUBdjyVfwYzdPFF3d3CxM x04B25zPEiiTPYoJHCzSUXzOZ DrvTwfqu0oiX2fFu8+PGNvbCB 3 fVG6rH9eUWFlYhK7HDaxO054K uEepPSkMnkbj8snf2htmAo6Lr WcIWGkbuAgtJpzMKB4g8GzVk8 8 F14jSUtdQERqYQCcNZXiAFVyn Yssrl7olG3fDx7+AH6qg7nugl 71rM61oHN+FYGsYSI4tMfoGZf w EOIqgZ7eLKpnWiM9MXNeEdEkh R44dXFoKAerHu0xzCcnuHwzZY 7wDYKaamtgn167UxUfl5sfHWH w oQDxGVysMPL8E01sc6E1ASPuQ YQdTGR8iAM9jG4zwTpbwpfwoM QkfLgacbJekQjlOBnsCGmeO22 6 IHRvcDsnPlBhdGllbnQgTmFtZ Ek5L7GwLba1EAWmsPnaND3wlH PeBQloAc5usImwwVjlIU2yCIT p uaibc715KnGuy9qwFSApuGIxU TefYOE3M24ib6J2LZUdNFKmUB M5yHK9jR9rfLmermaezVUnmWb g zfLrcCqhIPvpTVksO594MCJqs OydXsFmcyMoEKIybXI0YF08SG 60sJXoy7H5uVE5M5DbNUIyzbw t uakyxLM5UDYqIWZztY74Xk5ug PkwBp3cRIGiCXW3JCCgxVViM0 LstB3zRwWjDXWhBMGdK1SveRA t VDwyB779HNiaDeM4IYNethLgI 4UjZELmwQurPjB9r7A2Qo6XE2 B8MR34OR02pSSyg5Y4xIU9H5A h HKEccsylwkqqeCU5CHXxXFTkk J76Eg5iaIvwQc9uAGWdWXP4HS IuuKXfF3YmuU8lViXtMMFqOIZ w D7BubYNrYSovP570XLndWwG4X UQxwuIlX5XcZRCdkXgtYyO7b2 X0Bf5XUQj4QV78ZM37rRXwu8U 5 aTN2F0TkDJTlohkeabjsrQN0Z VGmBEOjwB59Yv7fsZtoNz4gBH OeCOQ7CLGiaAJrL4AwiL7sXhI j KVBfZYBsM9KlgPHfNFbzE727Y IvgEmW0CCTzhxYbI1HoGBFukG eoRnM9c8H9Qz4DVTHcUE86SRI 5 vUG3JO81QL90I6GsQycqlDSol +PHRhYmxlIHdpZHRoPScxMD HvHtPuiYfeQA7oEn7wCIDqHBW v jAckcVSjZgHcj1tsEOUiOSpzE A8ohAyeR2IfwYS0TNFzr0b5Nc 99A80vR4AynLP+CMRxhRO1tUC 0 bL0sEcSaTzV5JZdsC154UfRas ATcFdysy3bgq0nwrOp8XeN7CJ McaeWinXzrNXH8w9MlOy50H52 s IHdpZHRoPSIxNSUiIHZhbGlnb w4ndT1vCw9+NYGzrJF9yYN8tP 5zNnKcUyW9YHmsL462JtOsoOM v Hbvhn1unh8mktXv9YcYuXEMjd rRadZyhLOJ1f5HhAs54G1PsbN eeo1IxWse2mq79hAFeh6V7oMR 9 T2JrSATjcsqwzFQapGebZI6eD WIdtzsyGHIofA6xUOVoA4d8Im PmHeV6BBbaJ1VcojE7CAJzmBB g QPlbDNZ5Q65bm1V6HVCzKRGaP IG3xUD7oP0rfWaescqosIXniN lmvpLbjRdfRSvoRYukK616OFS v iHsxYCYdxX2dMEVumDDmbSeoX I8dHVRlveryHr3AVHdDT19yCR SLGnSEB4TwMWpbyCF+PHRkIHN 0 tNzdNKlkBHXfuH2dFGUoG7a2H yBiOwQ7ZAjvZ9HbSANjoeerNg 23aR5lKnTuXaE4PJgkW5HkdmR 6 LCMcoHYyFFkzUZA5V03nm3Q7C YGpRWQaUCJ4hCQ7kW4pfQdoft ogbGVmdDsgdmVydGljYWwtYWx p Y249QMBqtPagNcV4EiT1LuD0I NZ1B9FuWbh1LUAceXduZI1uwY TeJZqgDd6rwIpqlKwgXT1vSBK p gdtcDXWvkK0sHEAntEKgvNtnA A8oZZBbzunyg010LhGhURN2RS VylQXuZ6AwwD6kOjClQBItAHV w Y0OkrDOwHHieM567WBjbGgD4P QHenqArS3LdBPXejWekQcC5r4 Q3Vg42AoXJWRErvcinmXX+PHR k RCZ4aJghRGdgARQcwW4hYIKeT 3e4OeCtVoG9BDuxN2NrNIYdjz uiGm17sP3tAsUcJyD5DNsoD3Y v jqA7OXQpaNAqRGajNEB4K75tg 3W3WHWtZXLzEXD5uKM2sN8erO lnbjogbGVmdDsgdmVydGljYWw t IOtqK385FNLnuWrjMtQMAVUPZ TwvdGQ+QQVtHPP3rRowYLnoKJ JguR5bZVZrR1b5MiRrKgS8EJy u S4WxQNDeilzlRt10eQ2oLwBuR uS1OZhyO8GsnxH8VAMspVAeXG cbGJA8D26sv2B8VGHzLAQfJXX 7 yAU1vL6cnYqmwasznTJdxJmmo dGalRtfHCuyXCspD085HXEhqV shCg5ATR03BF60F2YpSomoqZC i bGU+PHRhYmxlIHdpZHRoPScxM ZLjPfLrfYyhXP0cFb3uGDZxXQ NfeWhdaKCeAzJgr0mdICEdNCn g NQ6mjToeF7RsdIN8IIRov5k3U j48Q21dE4UcjWT+XIFrkKK9yN S7uO7rXiCpCnL5SLqwY034VhD v jHUzBxmwo1vsg5nvtAb2TeOuV KVxbaMfkSgiVLV3q6DrUc05T2 9sIHdpZHRoPSIyMCUiIHZhbGl n iv9ixN2eAf0+NTQtdBD2qGC6m R9zUvFfToG0JGadE199QeGzkW NwWxzwB15jC3QtyIB+PHRyPjx 0 UEPzvXvxNS1qzJMsXNhbOi6lX PG6AoPwAaLlRNtzA7OqLHRizb qmtjkduDV5OYRkBTUfvJ51Uz8 u fFpyZf8eKBEvERU2AWTajZNgR 4WewG8sZcByWIYpCSGdN0MqrR XuGJdcI211WGnzDbV6FQAvrdP p M4UmCSQvvKxuOxA8q7C0Vu3Lz MsnlLCxHW8vUxToGMr3S4BkJc y7AMNduBnuRL1mbBAeFBkmLr0 y pWnnmBqnPZ8uZOQwkivew819Q lUsv2jhLVNtsZDnOKteIXG5F2 1jx8G8NVIbZQFoBZF3dSR2bJ9 h bGlnbjogbGVmdDsgdmVydGljY LemWLcoM261GOIhoMzpFqOKGe f5X8LwWlo7IEMekVljJM1xuKP k XBdeWy6mjIwxrEcuHN4sOMAtc ouhv786ZyOlm5znTUImgYBmVE kyRAB7A83wu3R7ELSlORNgUOD 7 eVS4nD7ekOzgxrzchFEpeQxxp lBixPfiYDjbUIkwE334WQKpdC ynNf7BPfh6Q6StIkj2VLSbpDm s NO9oeJBqYJsvNl9irDmrmAmsJ U0sRGKnakfrr441SxVzv7rvOJ UilQFlZMgzMGW5K90lo4B1LIS w QIHzKEE1wFH5rD0bvPnptgcbm GVmdDsgdmVydGljYWwtYWxpZ2 46IHRvcDsnPlBheWVyOjwvdGQ + DM72yq37G6NpPdppJbx2LVUjU TS5gMA8uC0qVDGgJVvxh3P3cB F7O8MzfxMkng5vg7gxURBoCMf g Y29 (more content not included)... [facility] Coding Summary HTMLBase 64 GywiffimFLk3zDb+PGhlYWQ+P M5SMJEoB74dbRJxpX0LX5fUOV 3OIQHWIBWXXA0MTO5iuJO0JSj iJ2DbddIm KjmzkIPdKG18SRz0XXF1fFwaV MlraG0ngNLqA3v5ZpWsYT44hG 49PTgqSPTcRhG0NyAbjraaiRX y X7mdMpMcoVSrCtw+PHRhYmxlI HdpZHRoPScxMDAlJyBzdHlsZT 1cIf1eQMVsQLHxzAuofAReNuC j z6pnUDXfUOgeEY2luNlnZ8Yht JP8EDYwz2i3Du58mIC+PHRkIH K0yGrdYWyii638OkDmg2hhNLC 3 tXTyRKpdWWZ4R46df2G4ZOUiB HPyUHO2zWL8cO6wwBnawdezQ4 ChoINiNwJ2JKF7aDCcsN9rcKv n bbsjgE5eNmo+C37WTS1WZKHEQ U6KIqr3E8GgKckfoFH+PC90YW QyXL55fCBwmHWrp2gmwHb8ReV w EYHtECH2oBnfEPeqy6IoYCLzB 61tnDTsg7E5LJWqnAjcyRPlYw TfjNY8vG2jAZephbuly9dpyea n Tooob5yyus23gL37W09yYNlnP SYvQCS4UEUsIYFrjFjkfc6rjU 9wIi8+IParu2oqg6ggpQw1ClH w FAJpwwAfzRxlYVO3n7WsAx98A 0RzbMjos9VdLge9gi78oYAoo7 X0bJJ9YQmsFVNqkD4cINpnQpQ 6 PPFcYgXlnV26bCNxKKhpWe2hk VxjpYyiCP9zHJVboqiuXVZioP 7fCVEjgGBqrSokIF0iZVTbnov m p163RnJpLHC1IZUvtMVaW1Kzk E1iRiPhKPHeQMXbS3KfbOUwAW xcN554AXvvDbO3EMWdhcRxT2H s IRBpcTybHkZ1e5K4Mw7Wz6Qnn lscPRG5YWmtGOE2KsR1BcIhWs L1D0UwEjk6CEDcuModQJ4aR6S h NNWwksarndvttHJ8QDQjEQUmf H85jAQxYTsvZm6oc1Z7y250KN SoIPQvxO33Qh3uaEkrURKmnSP U eT5jtpgdk3sfbszlWtKoDNQrJ Lj1FYx5PFAqmCldJzMdELX1Ew O4HZW8qQYewI7wrVeeclpkyP2 w Oyc+M23zfM9gQHM4JHJ0lbrvR MAmqnXtBM02OD67T3UbCldksG FibGU+VMLtggQutXzzIG7eQdT j o9zsa4RaHDkoA0VeSVWlECktF tw5CKVcMUS2hAL3qW0cNSGyMB jkx6D4nXJ1J4RaysVvjx9rb7p s EFRhPThsS50ahOXzh7L1FFYwh JF3ZYFtrEbpPeItgW26Hme+PG IqgIyzu1FlVwrpu1wvq0bzjZx 9 BtCyAPOpyrCljLfzBEM9k2YtU a33L34zBYtcAPUvLJGiSFEgYM RbsOgonz7krN3qHp0+PGNvbCB 3 fKF2gX6vWPOdCcO9VGkyE920Y rRwdFHbDdkzx9rcz9cyvSe1Iw IqDYCrcaXntPniEVV5r1CpTy8 8 M92oRYcuTHJzRWTyAVKnJKHnu Gehoo0mxH0nRx5+KV8hh2akse 57gR05wKU+HWZtGVH5aVvyVDa w CFZciQ0oAXpvSnJ3TORlCzZak M25mBOsVZjiPs3ttHkrzVssQF 1jHJPaxegum146TkAyf0vmHPC w dWLrDYqyQPP3F42wh7K7THBlH JMiDHN2hCX4eL2jbPmsngmgpO RvoWuuipCylItmPRqoWJwyH25 6 IHRvcDsnPlBhdGllbnQgTmFtZ Kd8D0SdWru1FZCmbDclOO4lqY FyCXvtNd2pxHzloMubZA4dKMM p kbxtv977IvGpu0joJFZlaTJgH UqbRIH3R09zr5X0PNPySSGkKR H7uKI8eY1baQjkfrrceLLvrXp g clAlzQamSOxjEUcnQ931GFUhx RblGuGljjLbDZZhbAT2VD95BV 89eEUjt1O7nPN8Z9LqBUYqacn t gzcdzQS3UTHfMFHxjU77Pf0as NviEu6aDKYmVPY9LOTdfKZlX7 SexR0rXdRpGMGvWLMjF4ApnSP t FCnpS701YLfsCbW2VOCfkjUkB 5QmBATanStjKuJ1r5X8Jy6MB3 K2LS32ZP87qAQav9S6vBI4O7W h QSYiglcfwseinZH5SYDwMEHpu Z98Mu9ioAazMj5jBBLwDUN6NS KumJEbO8OfqP9dBsQlDZCiHCF w R8CggJRwGQclA167TOnmXlW9R KDiuuMiY5WfUZKayCpgGlY9x7 Z2Th4JYSl8XS24KC73rJNay8J 5 xFE5A8FpACDqitqpestshOI4Y IAcTKLyxZ56Ua2cgUlmNw0mFP MzQIG8YCJhwVDqA1OvwC5sPvY j IXZxHAViM0AymUVcKWatO592J AnbZuG5QRXhqmLyK1FiQHWgvL duEgZ6m0L5Sa6OULUyHO21XZB 5 yKS6DP67WW15Y6JnYxfbyDBng +PHRhYmxlIHdpZHRoPScxMD AuYqHblYezWZ4kNt4rUQXeSPB v kGtpiSDcJwJlx8xqGEZkVSmaO R0cqMqdQ2EzbSI0IUOqj8c7Wf 05K12wQ1ZquFD+QTAkwIQ5bTB 0 yZ2iCfJpOnQ0RNriS788TsKvr JJjPmhgv8rnp9zeiZh2GjX7QA VyanXvvHqtSPH2y1GlMt36E61 s IHdpZHRoPSIxNSUiIHZhbGlnb c8ahA8iEy2+OXWdwRU7wMY4sM 0xMkDbCkL0VMhyV880IuGplOJ v Xsoaj8msv8tuwPk5QcEeOBNux zOynZdrREL6c0XuFm66W1TrlE ghb4NiDlh8gr51fFZiu1J4qVV 9 J7ZrRVMntmngnWJgqVslEX5mR APgdlspIFQazM4lZVNmS5y8Ps HaCeU1LBkqE2DkvyP5PFGtgDV g VGmzRFT6Q28mp3O9SERxJSIaJ VW8iRO0kS7pnTgzsuyjkXUchJ rzxvNrpOlzAOsiFBzdT736AFM v lDmyJVFwlW2pZDOxgFIaeLunI M5vEVLspazfDx9OTTuBP17aGS RLSbRUI0SbJKrxgUW+PHRkIHN 0 qHwpPBriSCCogL8rYZSlZ9g8L qEzHaA1AQkjZ0FeALLdoyjpCn 54cC6nPqHrEfH3UQzvL2HadrZ 6 YHWovHBrWEoqCGL5P47bl0U5K XHwDCJjUEK6eKW5uJ8vhQbcvr ogbGVmdDsgdmVydGljYWwtYWx p H962BJSboZfgBmA1YjC0EsB1W DF3L9ZxWhp4VVGkrXayLY6ieW XhPWkaHc5smEocoTsxDX1tWSK p rnskDXBhxY6aZURreIKhlYesY S6fCDHsihpec971WjJwXJK9QI QuqVBhH4NosP1bGzCuDOThGRU w H1OczGSsDUxyT842YYdkVvU1Y CXjqiFoT7VvRKKwpGpyGcG2b6 Z5Lq87WkVAPNEarfnikKD+PHR k SUF7jSckZEpnYFAbfT1bKKDhA 0r8YpUpRaJ2IJqhP4BsWAUdxj wpGd73hN8bTgLnHwR0ZWfhR0G v erW6LYNpvHGiKHnbDLX9D46pg 2M7LYJsOAHcVDV0sYH8sM4jjW lnbjogbGVmdDsgdmVydGljYWw t KWgpI327HEAgjFsaSsWINKYYX TwvdGQ+BVUgRRJ2iDouWAmmGW NsbM2xKQLmY8x4MqDhErF8JTd u F2GyCBZbnqirWb68gJ4vCuHpV qW1AQibU4LokpY9FOBumSYgPR wlUTE9Z24wu0Y6IWJeOLUiZEM 7 aZG6cM0buIfgpeiocZNnqMtec tLmxYimXOauMGaxY778YRZafO mfDvDmHVUdQY9wbUywrNU+PC9 0 cw00F9ZqSipaAjw4TQGrBHW6b YT9nU0oTLOtQQhsc1S2sHY5Y7 OawbNfow3ku6apXVLfEOnqS07 s ySYyo8M0IPAesQG5JLIbqNieY cOdkE49Rvg+SDEbgLywj2XlOp yfz1qbx3qzdYh7MxTuAQZzgjB s dMbnUWX7f9OnYo15A88uHMsaK XIbNYTcYARwNKCjtFernj2zbT 9wIi8+ABAieEJ6zGJ9rY3sWgU l EiT9UGtoX932LeEsyFIdZhxqk 8pjn0ffqOd0PeYyBNXhcoMuyT nzVNL6h5WhAp33H7NzoMtmr9W w Xhw5cc53tRKoz3B9eWS8V5OpA JMrpkyryHVypXxtEK3eUMQomf dkECLahG4ePUJpW1m2GiOyUrT 1 HAntK0YcemM4NVNizMEvDKYtt QLPyY5xyycqz4sfjhcqEnWwMI MnNXz3RNr9EWPumVsnYoGqEJF 0 BjG3ESY7gSFisZ6nqBvucjxql G9wOyc+CSg7x6zmoGAlXQ0ggS W5SA04UJ46qGGfu1C4tVN4M8C h GCZmavzcvtsbeEK1HFQoBFIdi E53Tc2tgLhxIs7qSMVeFVD1CU TswXRgS1CzbP8zDiJkYOBgHEW w B6DixPHlDScjM655AXumZeM3S CTqcjGpX0RzXCFcwNdlFbG5y0 P3Bj7MDI90KO09WY24bWPlt4J 5 vGN8P9SwAVEnfuazyavwkYI1I VGoTWOgaI92Et6pfBinDa0zTA DyAYQ3LDTqrJAwZ1HfvV7yVkZ j XMXoBERdQ4UntUIqAVcmV116K DjmRpR5IKBpzeUtK8SfVOIovO qwCmT6w2F6Ro7TXj27PE29RX7 8 wXIyt8F7bGW3Y8FdQRLktavrp vfwbUK0XXDxKSRjgA37Cq6yoU ofRv6bWSHlJXT3EIKpoPGuH8W v aM9fCiTcQZYyGNUcK8OmqLGgX EruU467LPncFlW6FLRgcbSiI4 NzCQAudKjnAsE9h6V7Ld7ZOYe l qbw9F5GdBgzmyYN+GN08YHXbH K64fCQucPDyf0zrtSd2XcOrOI YnHQJ8nCzxZOyuz7HrSPSiL65 s bGF (more content not included)... [facility] Coding Queryon 04-17-2022 Coding Query Can you please docum ent the final diagnosis for this chart? Thanks. [Electronically Signed on: 04/17/2022 20:06 EDT] Mariano Javier MD [Verified on: 04/17/2022 20:06 EDT] Mariano Javier MD [Transcribed on: 04/17/2022 18:50 EDT] RR Normal [facility] Basic Metabolic Panelon 03-26 Anion gap [Moles/Vol] 11 mmol/L 9 - 17 mmol/L Estately Calcium [Mass/Vol] 9.5 mg/dL 8.6 - 10. 4 mg/dL [facility] Chloride [Moles/Vol] 101 mmol/L 98 - 10 7 mmol/L [facility] Apartment List CO2 [Moles/Vol] 29 mmol/L 20 - 31 mmol/L [facility] Apartment List Creatinine [Mass/Vol] 0.58 mg/dL 0.50 - 0.90 mg/dL Estately GFR >60 >60 mL/min Estately GFR Non- >60 >60 mL/min [facility] GFR/1.73 sq M.predicted MDRD (S/P/Bld) [Vol rate/Area] [employer] [facility] Apartment List Comment on above: Average GFR for 60-6 9 years old: 85 mL/min/1.73sq m Chronic Kidney Disease: <60 mL/min/1.73sq m Kidney failure: <15 mL/min/1.73sq m eGFR calculated using average adult body mass. Additional eGFR calculator available at: http://www.Linkagoal.PetSitnStay/multiple_crcl_2012.htm Glucose [Mass/Vol] 113 mg/dL High 70 - 99 mg/dL Estately Interpretation and review of laboratory results Abnormal [facility] Potassium [Moles/Vol] 3.9 mmol/L 3.7 - 5.3 mmol/L [facility] [employer] [facility] Sodium [Moles/Vol] 141 mmol/L 135 - 144 mmol/L Estately Urea nitrogen (BldV) [Mass/Vol] 6 mg/dL Low 8 - 23 mg/dL Estately Basic Metabolic Profon 04-08 (cont.) Normal [facility] Comment on above: Result Comment: Aver age GFR for 60-69 years old: 85 mL/min/1.73sq m Chronic Kidney Disease: <60 mL/min/1.73sq m Kidney failure: <15 mL/min/1.73sq m eGFR calculated using average adult body mass. Additional eGFR calculator available at: http://www.[employer]/multiple_crcl_2011.htm Performed By: #### C DP, BMP, PT, MG #### [facility] [address] [place] [address] Alarm Service Technician: Grzegorz Tijerina MD Anion gap [Moles/Vol] 11 mmol/L Normal 9-17 [facility] Comment on above: Performed By: #### C DP, BMP, PT, MG #### [facility] [employer] [address] [place] [address] Alarm Service Technician: Grzegorz Tijerina MD Calcium [Mass/Vol] 9.5 mg/dL Normal 8.6-10.4 [facility] Comment on above: Performed By: #### C DP, BMP, PT, MG #### [facility] [address] [place] [address] Alarm Service Technician: Grzegorz Tijerina MD Chloride [Moles/Vol] 101 mmol/L Normal 98-107 [facility] Comment on above: Performed By: #### C DP, BMP, PT, MG #### [facility] [address] [place] [address] Alarm Service Technician: Grzegorz Tijerina MD CO2 [Moles/Vol] 29 mmol/L Normal 20-31 [facility] Comment on above: Performed By: #### C DP, BMP, PT, MG #### [facility] [address] [place] [address] Alarm Service Technician: Grzegorz Tijerina MD Creatinine [Mass/Vol] 0.58 mg/dL Normal 0.50-0.90 [facility] Comment on above: Performed By: #### C DP, BMP, PT, MG #### [facility] [employer] [address] [place] [address] Alarm Service Technician: Grzegorz Tijerina MD GFR, Amer >60 Normal >60 [facility] Comment on above: Performed By: #### C DP, BMP, PT, MG #### [facility] [employer] [address] [place] [address] Alarm Service Technician: Grzegorz Tijerina MD GFR,non Amer >60 Normal >60 [facility] Comment on above: Performed By: #### C DP, BMP, PT, MG #### [facility] [employer] [address] [place] [address] Alarm Service Technician: Grzegorz Tijerina MD Glucose [Mass/Vol] 113 mg/dL High 70-99 [facility] Comment on above: Performed By: #### C DP, BMP, PT, MG #### [address] [address] Alarm Service Technician: Grzegorz Tijerina MD Potassium [Moles/Vol] 3.9 mmol/L Normal 3.7-5.3 [facility] Comment on above: Performed By: #### C DP, BMP, PT, MG #### [address] [address] Alarm Service Technician: Grzegorz Tijerina MD Sodium [Moles/Vol] 141 mmol/L Normal 135-144 [facility] Comment on above: Performed By: #### C DP, BMP, PT, MG #### [facility] [employer] [address] [place] [address] Alarm Service Technician: Grzegorz Tijerina MD Urea nitrogen [Mass/Vol] 6 mg/dL Low 8-23 [facility] Comment on above: Performed By: #### C DP, BMP, PT, MG #### [facility] [address] [place] [address] Alarm Service Technician: Grzegorz Tijerina MD CBC with Auto Differentialon 04-08-2022 Absolute Eos # <0.03 [employer] [facility] [employer] Absolute Immature Granulocyte 0.04 [facility] Absolute Lymph # 1.03 Low [facility] Absolute [place] # 0.66 [employer] Basophils (Bld) [#/Vol] 0.04 10*3/uL [facility] Basophils/100 WBC (Bld) 0 % 0 - 2 % [facility] Eosinophils/100 WBC (Bld) 0 % Low 1 - 4 % [facility] Hematocrit (Bld) [Volume fraction] 41.7 % 36.3 - 47.1 % [facility] Hemoglobin (Bld) [Mass/Vol] 13.1 g/dL 11.9 - 15.1 g/dL [facility] Immature granulocytes/100 WBC (Bld) 0 % 0 [facility] Interpretation and review of laboratory results Abnormal [facility] Lymphocytes/100 WBC (Bld) 9 % Low 24 - 43 % [facility] MCH (RBC) [Entitic mass] 27.5 pg 25.2 - 33.5 pg [facility] MCHC (RBC) [Mass/Vol] 31.4 g/dL 28.4 - 34.8 g/dL [facility] MCV (RBC) [Entitic vol] 87.6 fL 82.6 - 102.9 fL [facility] Monocytes/100 WBC (Bld) 6 % 3 - 12 % [facility] NRBC Automated 0.0 0.0 per 100 WBC [facility] Platelet distribution width (Bld) [Ratio] 14.7 % High 11.8 - 14.4 % [facility] Platelet mean volume (Bld) [Entitic vol] 11.4 fL 8.1 - 13.5 fL [facility] Platelets (Bld) [#/Vol] 312 10*3/uL [facility] RBC (Bld) [#/Vol] 4.76 10*6/uL 3.95 - 5.1 1 m/uL [facility] RBC (Bld) [#/Vol] ANISOCYTOSIS PRESENT [facility] Segmented neutrophils/100 WBC (Bld) 85 % High 36 - 65 % [facility] Segs Absolute 9.77 High [facility] WBC (Bld) [#/Vol] 11.5 10*3/uL High [facility] CBC with Diffon 04-08-2022 Abs. Basophil 0.04 k/uL Normal 0.00-0.20 [facility] Comment on above: Performed By: #### C DP, BMP, PT, MG #### [facility] [employer] [address] [place] [address] Alarm Service Technician: Grzegorz Tijerina MD Abs. Eosinophil <0.03 Normal 0.00-0.44 [facility] Comment on above: Performed By: #### C DP, BMP, PT, MG #### [facility] [address] [place] [address] Alarm Service Technician: Grzegorz Tijerina MD Abs.Imm.Granulocyte 0.04 k/uL Normal 0.00-0.30 [facility] Comment on above: Performed By: #### C DP, BMP, PT, MG #### [employer] [address] [place] [address] Alarm Service Technician: Grzegorz Tijerina MD Abs.Neutrophil (Seg) 9.77 k/uL High 1.50-8.10 [facility] Comment on above: Performed By: #### C DP, BMP, PT, MG #### [employer] [address] [place] [address] Alarm Service Technician: Grzegorz Tijerina MD Basophils/100 WBC (Bld) 0 % Normal 0-2 [facility] Comment on above: Performed By: #### C DP, BMP, PT, MG #### [employer] [address] [place] [address] Alarm Service Technician: Grzegorz Tijerina MD Eosinophils/100 WBC (Bld) 0 % Low 1-4 [facility] Comment on above: Performed By: #### C DP, BMP, PT, MG #### [facility] [employer] [address] [place] [address] Alarm Service Technician: Grzegorz Tijerina MD Erythrocyte distribution width (RBC) [Ratio] 14.7 % High 11.8-14.4 [facility] Comment on above: Performed By: #### C DP, BMP, PT, MG #### [facility] [address] [place] [address] Alarm Service Technician: Grzegorz Tijerina MD Hematocrit (Bld) [Volume fraction] 41.7 % Normal 36.3-47.1 [facility] Comment on above: Performed By: #### C DP, BMP, PT, MG #### [facility] [employer] [address] [place] [address] Alarm Service Technician: Grzegorz Tijerina MD Hemoglobin (Bld) [Mass/Vol] 13.1 g/dL Normal 11.9-15.1 [facility] Comment on above: Performed By: #### C DP, BMP, PT, MG #### [facility] [address] [place] [address] Alarm Service Technician: Grzegorz Tijerina MD Immature granulocytes/100 WBC (Bld) 0 % Normal 0 [facility] Comment on above: Performed By: #### C DP, BMP, PT, MG #### [facility] [address] [place] [address] Alarm Service Technician: Grzegorz Tijerina MD Lymphocytes (Bld) [#/Vol] 1.03 10*3/uL Low 1.10-3.70 [facility] Comment on above: Performed By: #### C DP, BMP, PT, MG #### [facility] [employer] [address] [place] [address] Alarm Service Technician: Grzegorz Tijerina MD Lymphocytes/100 WBC (Bld) 9 % Low 24-43 [facility] Comment on above: Performed By: #### C DP, BMP, PT, MG #### [address] [address] Alarm Service Technician: Grzegorz Tijerina MD MCH (RBC) [Entitic mass] 27.5 pg Normal 25.2-33.5 [facility] Comment on above: Performed By: #### C DP, BMP, PT, MG #### [address] [address] Alarm Service Technician: Grzegorz Tijerina MD MCHC (RBC) [Mass/Vol] 31.4 g/dL Normal 28.4-34.8 [facility] Comment on above: Performed By: #### C DP, BMP, PT, MG #### [address] [address] Alarm Service Technician: Grzegorz Tijerina MD MCV (RBC) [Entitic vol] 87.6 fL Normal 82.6-102.9 [facility] Comment on above: Performed By: #### C DP, BMP, PT, MG #### [address] [address] Alarm Service Technician: Grzegorz Tijerina MD Monocytes (Bld) [#/Vol] 0.66 10*3/uL Normal 0.10-1.20 [facility] Comment on above: Performed By: #### C DP, BMP, PT, MG #### [address] [address] Alarm Service Technician: Grzegorz Tijerina MD Monocytes/100 WBC (Bld) 6 % Normal 3-12 [facility] Comment on above: Performed By: #### C DP, BMP, PT, MG #### [facility] [employer] [address] [place] [address] Alarm Service Technician: Grzegorz Tijerina MD Neutrophil (Seg) 85 % High 36-65 [facility] Comment on above: Performed By: #### C DP, BMP, PT, MG #### [address] [address] Alarm Service Technician: Grzegorz Tijerina MD NRBC Automated 0.0 per 100 WBC Normal 0.0 [facility] Comment on above: Performed By: #### C DP, BMP, PT, MG #### [facility] [employer] [address] [place] [address] Alarm Service Technician: Grzegorz Tijerina MD Platelet mean volume (Bld) [Entitic vol] 11.4 fL Normal 8.1-13.5 [facility] Comment on above: Performed By: #### C DP, BMP, PT, MG #### [address] [address] Alarm Service Technician: Grzegorz Tijerina MD Platelets (Bld) [#/Vol] 312 10*3/uL Normal 138-453 [facility] Comment on above: Performed By: #### C DP, BMP, PT, MG #### [address] [address] Alarm Service Technician: Grzegorz Tijerina MD RBC (Bld) [#/Vol] 4.76 10*6/uL Normal 3.95-5.11 [facility] Comment on above: Performed By: #### C DP, BMP, PT, MG #### [facility] [employer] [address] [place] [address] Alarm Service Technician: Grzegorz Tijerina MD RBC morphology finding Nom (Bld) ANISOCYTOSIS PRESENT Normal [facility] Comment on above: Performed By: #### C DP, BMP, PT, MG #### [facility] [employer] [address] [place] [address] Alarm Service Technician: Grzegorz Tijerina MD WBC (Bld) [#/Vol] 11.5 10*3/uL High 3.5-11.3 [facility] Comment on above: Performed By: #### C DP, BMP, PT, MG #### [facility] [place], [place] [address] Alarm Service Technician: Grzegorz Tijerina MD Laboratory - Blood bankon Blood product type Nom (BPU) FRESH PLASMA [facility] Blood product type Nom (BPU) Leukocyte Reduced Red Cell [facility] Magnesiumon 04-08-2022 Magnesium [Mass/Vol] 1.6 mg/dL Normal 1.6-2.6 [facility] Comment on above: Performed By: #### C DP, BMP, PT, MG #### [facility] [place] [address] Alarm Service Technician: Grzegorz Tijerina MD Magnesium [Mass/Vol] 1.6 mg/dL 1.6 - 2 .6 mg/dL [facility] No Panel Informationon 04-08 [facility] Blood Bank Blood Product Expiration Date [facility] Blood Bank ISBT Product Blood Type 7300 [facility] Blood Bank Unit Type and Rh Positive [facility] Dispense Status TRANSFUSED [facility] Transfusion Status OK TO TRANSFUSE B ON [facility] Unit Divison 0 [facility] Crossmatch Result COMPATIBLE [facility] Dis[facility]ense Status REL FROM [facility] Transfusion Status OK TO TRANSFUSE B ON [facility] Unit Divison 0 [facility] PREPARE PLASMA, 1 Unitson Blood product unit ID (Dose) [#] [id number] [facility] Blood product unit ID (Dose) [#] [id number] [facility] Product Code Blood Bank [id number] [facility] Product Code Blood Bank [id number] [facility] Unit Issue Date/Time [id number] [facility] Unit Issue Date/Time [id number] ANDRÉS N Apartment List PTon 04-08-2022 INR Coag (PPP) [Relative time] 1.0 {INR} Normal [facility] Comment on above: Result Comment: Therapeutic Range: Moderate Anticoagulant Intensity: INR = 2.0-3.0 High Anticoagulant Intensity: INR = 2.5-3.5 Performed By: #### C DP, BMP, PT, MG #### [employer] [address] [place], [place] [id number] Alarm Service Technician: Grzegorz Tijerina MD PT Coag (PPP) [Time] 10.4 s Normal 9.1-12.3 [facility] Comment on above: Performed By: #### C DP, BMP, PT, MG #### [facility] [address] [place] [address] Alarm Service Technician: Grzegorz Tijerina MD Protime-INRon 04-08-2022 INR Coag (Bld) [Relative time] 1.0 {INR} [facility] Comment on above: Therapeutic Range: Moderate Anticoagulant Intensity: INR = 2.0-3.0 High Anticoagulant Intensity: INR = 2.5-3.5 PT Coag (PPP) [Time] 10.4 s [facility] [employer] [facility] [employer] TYPE AND SCREENon 04-08-2022 ABO/Rh Positive [facility] Arm Band Number BE [id number] [facility] Blood product unit ID (Dose) [#] [id number] [facility] [employer] Blood product unit ID (Dose) [#] [id number] [employer] [facility] [employer] [facility] Expiration Date 04/10/2022,2359 [facility] [employer] [facility] [employer] .Auto Diff 104-07-2022 Auto [place] % 8 % Normal 10-07 [facility] Comment on above: Performed By: #### 5 [id number], [id number], [id number], [id number], [id number], [id number] ####[facility] (DEFAULT)[address] [place] [address] Baso Abs# 0.1 x10 Normal 0.0-0.2 [facility] Comment on above: Performed By: #### 5 [id number], [id number], [id number], [id number], [id number], [id number], [id number] ####[facility] (DEFAULT)[address] [place] [address] Basophils/100 WBC (Bld) 0.8 % Normal 0.2-2.0 [facility] Comment on above: Performed By: #### 5 [id number], [id number], [id number], [id number], [id number], [id number], [id number] ####[facility] (DEFAULT)[address] [place] [address] Eos Abs# 0.3 x10 Normal 0.0-0.4 [facility] Comment on above: Performed By: #### 5 [id number], [id number], [id number], [id number], [id number], [id number], [id number] ####[facility] (DEFAULT)[address] [place] [address] Eosinophils/100 WBC (Bld) 4.6 % High 0.9-4.0 [facility] Comment on above: Performed By: #### 5 [id number], [id number], [id number], [id number], [id number], [id number], [id number] ####[facility] (DEFAULT)[address] [place] [address] Lymph Abs# 1.8 x10 Normal 1.3-2.9 [facility] Comment on above: Performed By: #### 5 [id number], [id number], [id number], [id number], [id number], [id number], [id number] ####[facility] (DEFAULT)[address] [place] [address] Lymphocytes/100 WBC (Bld) 24 % Normal 14-48 [facility] Comment on above: Performed By: #### 5 [id number], [id number], [id number], [id number], [id number], [id number], [id number] ####[facility] (DEFAULT)[address] [place] [address] [place] Abs# 0.6 x10 Normal 0.0-0.8 [facility] Comment on above: Performed By: #### 5 [id number], [id number], [id number], [id number], [id number], [id number] ####[facility] (DEFAULT)[address] [place] [address] Neut Abs# 4.7 x10 Normal 1.5-9.2 [facility] Comment on above: Performed By: #### 5 [id number], [id number], [id number], [id number], [id number], [id number] ####[facility] (DEFAULT)[address] [place] [address]95 Neutrophils/100 WBC (Bld) 63 % Normal 44-88 [facility] Comment on above: Performed By: #### 5 [id number], [id number], [id number], [id number], [id number], [id number] ####[facility] (DEFAULT)[address] [place] [id number] APTTon 04-07-2022 aPTT Coag (Bld) [Time] 28.1 s Normal 20.5-30.5 [facility] Comment on above: Result Comment: IV Heparin Therapy Range: 48.6-77.8 Performed By: #### L ACDS, PT #### [facility] [place] [address] Alarm Service Technician: Grzegorz Tijerina MD aPTT Coag (Bld) [Time] 28.1 s [facility] Comment on above: IV Heparin Therapy Range: 48.6-77.8 Basic Metabolic Panelon 03-26 Anion gap [Moles/Vol] 7 mmol/L Low 9 - 17 mmol/L [facility] [place] Calcium [Mass/Vol] 9.2 mg/dL 8.6 - 10. 4 mg/dL [facility] [place]oshot Chloride [Moles/Vol] 104 mmol/L 98 - 10 7 mmol/L [facility] CO2 [Moles/Vol] 28 mmol/L 20 - 31 mmol/L [facility] Creatinine [Mass/Vol] 0.6 mg/dL 0.50 - 0.90 mg/dL [facility] GFR >60 >60 mL/min [facility] GFR Non- >60 >60 mL/min [facility] GFR/1.73 sq M.predicted MDRD (S/P/Bld) [Vol rate/Area] [facility] Comment on above: Average GFR for 60-6 9 years old: 85 mL/min/1.73sq m Chronic Kidney Disease: <60 mL/min/1.73sq m Kidney failure: <15 mL/min/1.73sq m eGFR calculated using average adult body mass. Additional eGFR calculator available at: [email or web address] Glucose [Mass/Vol] 107 mg/dL High 70 - 99 mg/dL [facility] Interpretation and review of laboratory results Abnormal [facility] Potassium [Moles/Vol] 3.3 mmol/L Low 3.7 - 5.3 mmol/L [facility] Sodium [Moles/Vol] 139 mmol/L 135 - 144 mmol/L [facility] Urea nitrogen (BldV) [Mass/Vol] 9 mg/dL 8 - 23 mg/dL [facility] Basic Metabolic Profon 04-07 (cont.) Normal [facility] Comment on above: Result Comment: Aver age GFR for 60-69 years old: 85 mL/min/1.73sq m Chronic Kidney Disease: <60 mL/min/1.73sq m Kidney failure: <15 mL/min/1.73sq m eGFR calculated using average adult body mass. Additional eGFR calculator available at: http://[email or web address]_crcl_2012.htm Performed By: #### L ACDS, PT #### [employer] [address] [place] [address] Alarm Service Technician: Grzegorz Tijerina MD Anion gap [Moles/Vol] 7 mmol/L Low 9-17 [facility] Comment on above: Performed By: #### L ACDS, PT #### [facility] [address] [place] [address] Alarm Service Technician: Grzegorz Tijerina MD Calcium [Mass/Vol] 9.2 mg/dL Normal 8.6-10.4 [facility] Comment on above: Performed By: #### L ACDS, PT #### [facility] [address] [place] [address] Alarm Service Technician: Grzegorz Tijerina MD Chloride [Moles/Vol] 104 mmol/L Normal 98-107 [facility] Comment on above: Performed By: #### L ACDS, PT #### [facility] [address] [place] [address] Alarm Service Technician: Grzegorz Tijerina MD CO2 [Moles/Vol] 28 mmol/L Normal 20-31 [facility] Comment on above: Performed By: #### L ACDS, PT #### [facility] [address] [place] [address] Alarm Service Technician: Grzegorz Tijerina MD Creatinine [Mass/Vol] 0.60 mg/dL Normal 0.50-0.90 [facility] Comment on above: Performed By: #### L ACDS, PT #### [facility] [address] [place] [address] Alarm Service Technician: Grzegorz Tijerina MD GFR, Amer >60 Normal >60 [facility] Comment on above: Performed By: #### L ACDS, PT #### [employer] [address] [place] [address] Alarm Service Technician: Grzegorz Tijerina MD GFR,non Amer >60 Normal >60 [facility] Comment on above: Performed By: #### L ACDS, PT #### [employer] [address] [place] [address] Alarm Service Technician: Grzegorz Tijerina MD Glucose [Mass/Vol] 107 mg/dL High 70-99 [facility] Comment on above: Performed By: #### L ACDS, PT #### [facility] [employer] [address] [place] [address] Alarm Service Technician: Grzegorz Tijerina MD Potassium [Moles/Vol] 3.3 mmol/L Low 3.7-5.3 [facility] Comment on above: Performed By: #### L ACDS, PT #### [facility] [employer] [address] [place] [address] Alarm Service Technician: Grzegorz Tijerina MD Sodium [Moles/Vol] 139 mmol/L Normal 135-144 [facility] Comment on above: Performed By: #### L ACDS, PT #### [facility] [employer] [address] [place] [address] Alarm Service Technician: Grzegorz Tijerina MD Urea nitrogen [Mass/Vol] 9 mg/dL Normal 8-23 [facility] Comment on above: Performed By: #### L ACDS, PT #### [facility] [employer] [address] [place] [address] Alarm Service Technician: Grzegorz Tijerina MD CBC w/ Auto Diffon Erythrocyte distribution width (RBC) [Ratio] 15.3 % High 11.5-15.0 [facility] Comment on above: Performed By: #### 5 [id number], [id number], [id number], 9659147, 6375355406, [id number], 7259205 ####[facility] (DEFAULT)[address] [place] [address] Hematocrit (Bld) [Volume fraction] 41.5 % High 33.7-40.4 [facility] Comment on above: Performed By: #### 5 [id number], 69607157, [id number], 6990891, 9326321214, 3104154907, 1955464 ####[facility] (DEFAULT)[address] [place] [address] Hemoglobin (Bld) [Mass/Vol] 13.8 g/dL Normal 11.3-15.9 [facility] Comment on above: Performed By: #### 5 [id number], 21604046, 1056551548, 3442573, 5935772301, 4268741599, 9114968 ####[facility] (DEFAULT)[address] [place] [address] Instr WBC 7.5 x10 Invalid Interpretation Code [facility] Comment on above: Performed By: #### 5 [id number], 12846489, [id number], 1440915, 2543939735, 3094851670, 3904830 ####[facility] (DEFAULT)[address] [place] [address] Man Diff? Auto Normal [facility] Comment on above: Performed By: #### 5 [id number], 95729627, 2793651150, 8122604, 3194705237, 8549632520, 8766365 ####[facility] (DEFAULT)[address] [place] [address] MCH (RBC) [Entitic mass] 27 pg Normal 24-34 [facility] Comment on above: Performed By: #### 5 [id number], 20020806, 8973808351, 9431189, 9436950321, 2911988088, 2257005 ####[facility] (DEFAULT)[address] [place] [address] MCHC (RBC) [Mass/Vol] 33 g/dL Normal 26-37 [facility] Comment on above: Performed By: #### 5 [id number], 59455667, 9412959146, 2933008, 8118637137, 3725029363, 5658282 ####[facility] (DEFAULT)[address] [place] [address] MCV (RBC) [Entitic vol] 82 fL Normal 81-100 [facility] Comment on above: Performed By: #### 5 [id number], 69963113, 7983555158, 2597437, 6172165151, 6456146201, 0154095 ####[facility] (DEFAULT)[address] [place] [address] Platelet 244 x10 Normal 138-427 [facility] Comment on above: Performed By: #### 5 [id number], 97091473, 0275222378, 1375251, 6559403382, 2793600219, 4101498 ####[facility] (DEFAULT)[address] [place] [address] Platelet mean volume (Bld) [Entitic vol] 10.4 fL High 6.3-10.2 [facility] Comment on above: Performed By: #### 5 [id number], 55060196, 3421771440, 7664776, 0800901459, 2386280888, 2965921 ####[facility] (DEFAULT)[address] [place] [address] RBC 5.08 x10 Normal 3.70-5.30 [facility] Comment on above: Performed By: #### 5 [id number], 83426513, 9552494388, 5617966, 6114512354, 5151313318, 4672687 ####[facility] (DEFAULT)[address] [place] [address] WBC 7.5 x10 Normal 3.5-10.5 [facility] Comment on above: Performed By: #### 5 [id number], 22550595, 0281206855, 8024063, 6501161945, 1399614536, 1960290 ####[facility] (DEFAULT)[address] [place] [address] CBC with Auto Differentialon 04-07-2022 Absolute Eos # 0.38 [facility] Absolute Immature Granulocyte <0.03 [facility] Absolute Lymph # 1.20 [facility] Absolute [place] # 0.45 [facility] Basophils (Bld) [#/Vol] 0.07 10*3/uL [facility] Basophils/100 WBC (Bld) 1 % 0 - 2 % [facility] Eosinophils/100 WBC (Bld) 6 % High 1 - 4 % [facility] Hematocrit (Bld) [Volume fraction] 40.4 % 36.3 - 47.1 % [facility] Hemoglobin (Bld) [Mass/Vol] 13.2 g/dL 11.9 - 15.1 g/dL [facility] Immature granulocytes/100 WBC (Bld) 0 % 0 [facility] Interpretation and review of laboratory results Abnormal [facility] Lymphocytes/100 WBC (Bld) 19 % Low 24 - 43 % [facility] MCH (RBC) [Entitic mass] 27.6 pg 25.2 - 33.5 pg [facility] MCHC (RBC) [Mass/Vol] 32.7 g/dL 28.4 - 34.8 g/dL [facility] MCV (RBC) [Entitic vol] 84.3 fL 82.6 - 102.9 fL [facility] Monocytes/100 WBC (Bld) 7 % 3 - 12 % [facility] NRBC Automated 0.0 0.0 per 100 WBC [facility] Platelet distribution width (Bld) [Ratio] 14.8 % High 11.8 - 14.4 % [facility] Platelet mean volume (Bld) [Entitic vol] 11.5 fL 8.1 - 13.5 fL [facility] Platelets (Bld) [#/Vol] 219 10*3/uL [facility] RBC (Bld) [#/Vol] 4.79 10*6/uL 3.95 - 5.1 1 m/uL [facility] RBC (Bld) [#/Vol] ANISOCYTOSIS PRESENT [facility] Segmented neutrophils/100 WBC (Bld) 67 % High 36 - 65 % [facility] Segs Absolute 4.37 [facility] WBC (Bld) [#/Vol] 6.5 10*3/uL [facility] CBC with Diffon 04-07-2022 Abs. Basophil 0.07 k/uL Normal 0.00-0.20 [facility] Comment on above: Performed By: #### L ACDS, PT #### [address] [address] Alarm Service Technician: Grzegorz Tijerina MD Abs.Imm.Granulocyte <0.03 Normal 0.00-0.30 [facility] Comment on above: Performed By: #### L ACDS, PT #### [address] [address] Alarm Service Technician: Grzegorz Tijerina MD Abs.Neutrophil (Seg) 4.37 k/uL Normal 1.50-8.10 [facility] Comment on above: Performed By: #### L ACDS, PT #### [address] [address] Alarm Service Technician: Grzegorz Tijerina MD Basophils/100 WBC (Bld) 1 % Normal 0-2 [facility] Comment on above: Performed By: #### L ACDS, PT #### [address] [address] Alarm Service Technician: Grzegorz Tijerina MD Eosinophils (Bld) [#/Vol] 0.38 10*3/uL Normal 0.00-0.44 [facility] Comment on above: Performed By: #### L ACDS, PT #### [address] [address] Alarm Service Technician: Grzegorz Tijerina MD Eosinophils/100 WBC (Bld) 6 % High 1-4 [facility] Comment on above: Performed By: #### L ACDS, PT #### [facility] [employer] [address] [place] [address] Alarm Service Technician: Grzegorz Tijerina MD Erythrocyte distribution width (RBC) [Ratio] 14.8 % High 11.8-14.4 [facility] Comment on above: Performed By: #### L ACDS, PT #### [facility] [employer] [address] [place] [address] [id number] Alarm Service Technician: Grzegorz Tijerina MD Hematocrit (Bld) [Volume fraction] 40.4 % Normal 36.3-47.1 [facility] Comment on above: Performed By: #### L ACDS, PT #### [address] [address] Alarm Service Technician: Grzegorz Tijerina MD Hemoglobin (Bld) [Mass/Vol] 13.2 g/dL Normal 11.9-15.1 [facility] Comment on above: Performed By: #### L ACDS, PT #### [address] [address] Alarm Service Technician: Grzegorz Tijerina MD Immature granulocytes/100 WBC (Bld) 0 % Normal 0 [facility] Comment on above: Performed By: #### L ACDS, PT #### [address] [address] Alarm Service Technician: Grzegorz Tijerina MD Lymphocytes (Bld) [#/Vol] 1.20 10*3/uL Normal 1.10-3.70 [facility] Comment on above: Performed By: #### L ACDS, PT #### [address] [address] Alarm Service Technician: Grzegorz Tijerina MD Lymphocytes/100 WBC (Bld) 19 % Low 24-43 [facility] Comment on above: Performed By: #### L ACDS, PT #### [address] [address] Alarm Service Technician: Grzegorz Tijerina MD MCH (RBC) [Entitic mass] 27.6 pg Normal 25.2-33.5 [facility] Comment on above: Performed By: #### L ACDS, PT #### [address] [address] Alarm Service Technician: Grzegorz Tijerina MD MCHC (RBC) [Mass/Vol] 32.7 g/dL Normal 28.4-34.8 [facility] Comment on above: Performed By: #### L ACDS, PT #### [address] [address] Alarm Service Technician: Grzegorz Tijerina MD MCV (RBC) [Entitic vol] 84.3 fL Normal 82.6-102.9 [facility] Comment on above: Performed By: #### L ACDS, PT #### [address] [address] Alarm Service Technician: Grzegorz Tijerina MD Monocytes (Bld) [#/Vol] 0.45 10*3/uL Normal 0.10-1.20 [facility] Comment on above: Performed By: #### L ACDS, PT #### [address] [address] Alarm Service Technician: Grzegorz Tijerina MD Monocytes/100 WBC (Bld) 7 % Normal 3-12 [facility] Comment on above: Performed By: #### L ACDS, PT #### [address] [address] Alarm Service Technician: Grzegorz Tijerina MD Neutrophil (Seg) 67 % High 36-65 [facility] Comment on above: Performed By: #### L ACDS, PT #### [address] [address] Alarm Service Technician: Grzegorz Tijerina MD NRBC Automated 0.0 per 100 WBC Normal 0.0 [facility] Comment on above: Performed By: #### L ACDS, PT #### [address] [address] Alarm Service Technician: Grzegorz Tijerina MD Platelet mean volume (Bld) [Entitic vol] 11.5 fL Normal 8.1-13.5 [facility] Comment on above: Performed By: #### L ACDS, PT #### [facility] [employer] [address] [place] [address] Alarm Service Technician: Grzegorz Tijerina MD Platelets (Bld) [#/Vol] 219 10*3/uL Normal 138-453 [facility] Comment on above: Performed By: #### L ACDS, PT #### [address] [address] Alarm Service Technician: Grzegorz Tijerina MD RBC (Bld) [#/Vol] 4.79 10*6/uL Normal 3.95-5.11 [facility] Comment on above: Performed By: #### L ACDS, PT #### [address] [address] Alarm Service Technician: Grzegorz Tijerina MD RBC morphology finding Nom (Bld) ANISOCYTOSIS PRESENT Normal [facility] Comment on above: Performed By: #### L ACDS, PT #### [address] [address] Alarm Service Technician: Grzegorz Tijerina MD WBC (Bld) [#/Vol] 6.5 10*3/uL Normal 3.5-11.3 [facility] Comment on above: Performed By: #### L ACDS, PT #### [address] [address] Alarm Service Technician: Grzegorz Tijerina MD [facility] Standardon 04-07-2022 eGFR Non AA >60 Invalid Interpretation Code [facility] Comment on above: Performed By: #### 5 [id number], 84041232, 8690536067, 3338319, 2782183149, 4295578537, 0458816 ####[facility] (DEFAULT)[address] [place] [address] eGFR AA >60 Invalid Interpretation Code [facility] Comment on above: Result Comment: Vp Production mari Kidney disease could be indicated at eGFRs of less than 60 ml/min/1.73m2. Kidney Failure is indicated at less than 15 ml/min/1.73m2 Performed By: #### 5 [id number], 79446755, 6718421459, 0627443, 2136501291, 2868973924, 9361721 ####[facility] (DEFAULT)[address] [place] [address] Albumin [Mass/Vol] 4.1 g/dL Normal 3.5-5.0 [facility] Comment on above: Performed By: #### 5 [id number], 93887643, 6100629296, 6351791, 7709526971, 7864494694, 8292474 ####[facility] (DEFAULT)[address] [place] [address] Albumin/Globulin [Mass ratio] 1.2 {ratio} Low 1.4-2.6 [facility] Comment on above: Performed By: #### 5 [id number], 79382482, 5463102612, 0849315, 3373607045, 0324935239, 4408630 ####[facility] (DEFAULT)[address] [place] [address] Alk Phos 81 IU/L Normal 32-91 [facility] Comment on above: Performed By: #### 5 [id number], 14842755, 8798673683, 7925855, 8822613122, 4321043654, 8643745 ####[facility] (DEFAULT)[address] [place] [address] ALT [Catalytic activity/Vol] 22.0 U/L Normal 14.0-54.0 [facility] Comment on above: Performed By: #### 5 [id number], 63396173, 7149489617, 1484544, 1458876888, 9130755952, 3418414 ####[facility] (DEFAULT)[address] [place] [address] Anion gap [Moles/Vol] 13.0 mmol/L Normal 5.0-19.0 [facility] Comment on above: Performed By: #### 5 [id number], 56957805, 6201165489, 7946228, 8803828131, 5498179134, 5372300 ####[facility] (DEFAULT)[address] [place] [address] AST [Catalytic activity/Vol] 32 U/L Normal 15-41 [facility] Comment on above: Performed By: #### 5 [id number], 08774503, 0936887663, 3332591, 8076879071, 7352103474, 2401880 ####[facility] (DEFAULT)[address] [place] [address] Bili Total 0.2 mg/dL Low 0.3-1.2 [facility] Comment on above: Performed By: #### 5 [id number], 12356269, 7257703114, 9673870, 1614040804, 0639545126, 4679403 ####[facility] (DEFAULT)[address] [place] [address] Calcium [Mass/Vol] 9.6 mg/dL Normal 8.9-10.3 [facility] Comment on above: Performed By: #### 5 [id number], 82908150, 1863105991, 9882371, 0607634285, 7157139797, 8712815 ####[facility] (DEFAULT)[address] [place] [address] Chloride [Moles/Vol] 100 mmol/L Low 101-111 [facility] Comment on above: Performed By: #### 5 [id number], 70653630, 2423741479, 6833570, 3183713760, 1114724597, 7127585 ####[facility] (DEFAULT)[address] [place] [address] CO2 [Moles/Vol] 29 mmol/L Normal 21-32 [facility] Comment on above: Performed By: #### 5 [id number], 60193002, 7529599153, 9777800, 4102129602, 9481834657, 5662000 ####[facility] (DEFAULT)[address] [place] [address] Creatinine [Mass/Vol] 0.60 mg/dL Normal 0.60-1.30 [facility] Comment on above: Performed By: #### 5 [id number], 48677686, 7763810543, 8325084, 0367978683, 5296516835, 7272360 ####[facility] (DEFAULT)[address] [place] [address] Globulin (S) [Mass/Vol] 3.4 g/dL Normal 1.5-4.3 [facility] Comment on above: Performed By: #### 5 [id number], 70474046, 4701357650, 9928147, 9685001351, 1288829040, 9975946 ####[facility] (DEFAULT)[address] [place] [address] Glucose [Mass/Vol] 110.0 mg/dL Normal 74.0-118.0 [facility] Comment on above: Performed By: #### 5 [id number], 67812559, 3630518921, 9386440, 8411569112, 2833199385, 3244989 ####[facility] (DEFAULT)[address] [place] [address] Osmolality 277 mOsm/L Invalid Interpretation Code [facility] Comment on above: Performed By: #### 5 [id number], 03180374, 0718972424, 7873645, 8463956293, 4230385995, 5317533 ####[facility] (DEFAULT)[address] [place] [address] Potassium [Moles/Vol] 3.4 mmol/L Low 3.6-5.1 [facility] Comment on above: Performed By: #### 5 [id number], 82532889, 8804638554, 3449936, 0233191460, 7567728094, 3171246 ####[facility] (DEFAULT)[address] [place] [address] Protein [Mass/Vol] 7.5 g/dL Normal 6.5-8.1 [facility] Comment on above: Performed By: #### 5 [id number], 28349090, 2423394189, 4523981, 3812943469, 0308002806, 5749158 ####[facility] (DEFAULT)[address] [place] [address] Sodium [Moles/Vol] 139.0 mmol/L Normal 136.0-144.0 [facility] Comment on above: Performed By: #### 5 [id number], 57341611, 2677978602, 4326934, 0863249049, 1151103430, 4654801 ####[facility] (DEFAULT)[address] [place] [address] Urea nitrogen [Mass/Vol] 9 mg/dL Normal 8-26 [facility] Comment on above: Performed By: #### 5 [id number], 94017998, 8628279087, 0308336, 8488483801, 1127387670, 4362379 ####[facility] (DEFAULT)[address] [place] [address] Urea nitrogen/Creatinine [Mass ratio] 15.0 mg/mg Normal 4.6-16.2 [facility] Comment on above: Performed By: #### 5 [id number], 07424330, 9469814044, 1839915, 5382510383, 4266815460, 4861128 ####[facility] (DEFAULT)[address] [place] [address] CT ABDOMEN PELVIS W IV CONTR Eulogio 04-07-2022 CT ABDOMEN PELVIS W IV CONTRAST EXAMINATION: CT OF THE ABDOMEN AND PELVIS WITH CONTRAST 04/07/2022 11:49 am TECHNIQUE: CT of the abdomen and pelvis was performed with the administration of intravenous contrast. Multiplanar reformatted images are provided for review. Automated exposure control, iterative reconstruction, and/or weight based adjustment of the mA/kV was utilized to reduce the radiation dose to as low as reasonably achievable. COMPARISON: CT abdomen and pelvis performed 05/30/2020. HISTORY: ORDERING SYSTEM PROVIDED HISTORY: bariatric protocol; possible internal hernia TECHNOLOGIST PROVIDED HISTORY: bariatric protocol; possible internal hernia Reason for Exam: Bariatric protocol possible internal hernia FINDINGS: Lower Chest: The lung bases are without consolidation or effusion. Visualized cardiac structures are unremarkable. Organs: The liver and spleen are normal size and overall attenuation. There multiple small hepatic cysts. The gallbladder is contracted and likely contains stones or sludge within the fundus. The pancreas and adrenal glands are unremarkable. The kidneys are without obstructive uropathy. There is a simple left renal cyst and no further follow-up is necessary. The urinary bladder is unremarkable. GI/Bowel: There is postsurgical change within the region of the stomach and proximal small bowel. There is a mildly prominent loop of small bowel containing contrast in the mid left abdomen. The remaining small bowel loops are normal in caliber. There appears to be an internal hernia centrally of omentum and small bowel loops anteriorly compared to prior examination. The colon contains air and fecal residue. The appendix is normal. There is trace free fluid in the pelvis. There is no free air. Pelvis: The uterus is age-appropriate. Peritoneum/Retroperitoneu m: The psoas muscles are symmetric. The abdominal aorta is normal in caliber. The inferior vena cava is unremarkable. There is no adenopathy. Bones/Soft Tissues: The extra-abdominal soft tissues are unremarkable. There is no acute osseous abnormality. IMPRESSION: Postsurgical change within the region of the stomach and proximal small bowel with a prominent contrast filled loop of small bowel in the left mid abdomen. Compared to prior exam there appears to be an internal hernia in the mid abdomen involving omentum and small bowel loops herniating anteriorly resulting in a degree of partial obstruction of the above-mentioned small bowel loop. This hernia may be best visualized on the sagittal and coronal images. Interpreted by: Aguila Arzate MD Signed by: Aguila Arzate MD 04/07/22 Final result Normal [facility] CT ABDOMEN PELVIS W IV CONTR AST Additional Contrast? Oralon 04-07-2022 Postsurgical change within the region of the stomach and proximal small bowel with a prominent contrast filled loop of small bowel in the left mid abdomen. Compared to prior exam there appears to be an internal hernia in the mid abdomen involving omentum and small bowel loops herniating anteriorly resulting in a degree of partial obstruction of the above-mentioned small bowel loop. This hernia may be best visualized on the sagittal and coronal images. [facility] RIS CONSOLIDATED EXAMINATION: CT OF THE ABDOMEN AND PELVIS WITH CONTRAST 04/07/2022 11:49 am TECHNIQUE: CT of the abdomen and pelvis was performed with the administration of intravenous contrast. Multiplanar reformatted images are provided for review. Automated exposure control, iterative reconstruction, and/or weight based adjustment of the mA/kV was utilized to reduce the radiation dose to as low as reasonably achievable. COMPARISON: CT abdomen and pelvis performed 05/30/2020. HISTORY: ORDERING SYSTEM PROVIDED HISTORY: bariatric protocol; possible internal hernia TECHNOLOGIST PROVIDED HISTORY: bariatric protocol; possible internal hernia Reason for Exam: Bariatric protocol possible internal hernia FINDINGS: Lower Chest: The lung bases are without consolidation or effusion. Visualized cardiac structures are unremarkable. Organs: The liver and spleen are normal size and overall attenuation. There multiple small hepatic cysts. The gallbladder is contracted and likely contains stones or sludge within the fundus. The pancreas and adrenal glands are unremarkable. The kidneys are without obstructive uropathy. There is a simple left renal cyst and no further follow-up is necessary. The urinary bladder is unremarkable. GI/Bowel: There is postsurgical change within the region of the stomach and proximal small bowel. There is a mildly prominent loop of small bowel containing contrast in the mid left abdomen. The remaining small bowel loops are normal in caliber. There appears to be an internal hernia centrally of omentum and small bowel loops anteriorly compared to prior examination. The colon contains air and fecal residue. The appendix is normal. There is trace free fluid in the pelvis. There is no free air. Pelvis: The uterus is age-appropriate. Peritoneum/Retroperitoneu m: The psoas muscles are symmetric. The abdominal aorta is normal in caliber. The inferior vena cava is unremarkable. There is no adenopathy. Bones/Soft Tissues: The extra-abdominal soft tissues are unremarkable. There is no acute osseous abnormality. [facility] RIS CONSOLIDATED Aguila Arzate MD - 04/07/2022 EXAMINATION: CT OF THE ABDOMEN AND PELVIS WITH CONTRAST 04/07/2022 11:49 am TECHNIQUE: CT of the abdomen and pelvis was performed with the administration of intravenous contrast. Multiplanar reformatted images are provided for review. Automated exposure control, iterative reconstruction, and/or weight based adjustment of the mA/kV was utilized to reduce the radiation dose to as low as reasonably achievable. COMPARISON: CT abdomen and pelvis performed 05/30/2020. HISTORY: ORDERING SYSTEM PROVIDED HISTORY: bariatric protocol; possible internal hernia TECHNOLOGIST PROVIDED HISTORY: bariatric protocol; possible internal hernia Reason for Exam: Bariatric protocol possible internal hernia FINDINGS: Lower Chest: The lung bases are without consolidation or effusion. Visualized cardiac structures are unremarkable. Organs: The liver and spleen are normal size and overall attenuation. There multiple small hepatic cysts. The gallbladder is contracted and likely contains stones or sludge within the fundus. The pancreas and adrenal glands are unremarkable. The kidneys are without obstructive uropathy. There is a simple left renal cyst and no further follow-up is necessary. The urinary bladder is unremarkable. GI/Bowel: There is postsurgical change within the region of the stomach and proximal small bowel. There is a mildly prominent loop of small bowel containing contrast in the mid left abdomen. The remaining small bowel loops are normal in caliber. There appears to be an internal hernia centrally of omentum and small bowel loops anteriorly compared to prior examination. The colon contains air and fecal residue. The appendix is normal. There is trace free fluid in the pelvis. There is no free air. Pelvis: The uterus is age-appropriate. Peritoneum/Retroperitoneu m: The psoas muscles are symmetric. The abdominal aorta is normal in caliber. The inferior vena cava is unremarkable. There is no adenopathy. Bones/Soft Tissues: The extra-abdominal soft tissues are unremarkable. There is no acute osseous abnormality. IMPRESSION: Postsurgical change within the region of the stomach and proximal small bowel with a prominent contrast filled loop of small bowel in the left mid abdomen. Compared to prior exam there appears to be an internal hernia in the mid abdomen involving omentum and small bowel loops herniating anteriorly resulting in a degree of partial obstruction of the above-mentioned small bowel loop. This hernia may be best visualized on the sagittal and coronal images. [email or web address] Phone: Radiology Study observation (narrative) [email or web address] Phone: CT ABDOMEN PELVIS W IV CONTR AST Additional Contrast? OralOrdered By: Aguila Arzate on 04-07-2022 [email or web address] Phone: ED Clinical Summaryon 2021 ED Clinical Summary [facility] Emergency Department [address] [place] [address] ED Clinical Summary PERSON INFORMATION Name: ALFREDO SOSA Age: 67 Years Sex: FEMALE : 1955 MRN: Acct#: Visit Reason: Abdominal pain; ABDOMINAL PAIN Arrival: 04/06/2022 23:46:10 Discharge: 04/07/2022 02:21:00 LOS: 000 02:35 Check In: 04/06/2022 23:46:10 Checkout:04/07/2022 02:21:00 Address: [address] [facility] [address] PCP: Cathy Rangel PROVIDER INFORMATION Provider Role Assigned Unassigned Mariano Javier MD ED Provider 04/06/2022 23:48:45 Michelet RN, Vaishali ED Nurse 04/06/2022 23:50:21 VITALS INFORMATION Vital Sign Triage Latest Temperature Tympanic Temperature Temporal Artery Pulse Rate 16 bpm 16 bpm O2 Sat 97 % 98 % Respiratory Rate 16 br/min 16 br/min Blood Pressure /62 mmHg /62 mmHg MEDICAL INFORMATION Medications Given: Medication Dose Route Sodium Chloride 0.9% intravenous solution 1,000 mL 1000 mL Initial Volume 250 mL/hr IV Right Antecubital Fossa ondansetron (Zofran) 4 mg IV Push pantoprazole (Protonix) 40 mg IV Push HYDROmorphone (Dilaudid) 0.5 mg IV Push Allergy Information: acetaminophen-codeine PHYSICIAN DOCUMENTATION DISCHARGE INFORMATION: Discharge Disposition: Discharge/Transfer to Another Hospital Discharge Location: [facility]) PATIENT EDUCATION INFORMATION Instructions: Follow-Up: DIAGNOSIS: 1:Partial small bowel obstruction Patient Understands: Yes - Patient/family/caregiver verbalizes understanding of instructions given Comment: [facility] ED Note-Nursingon 04-07-2022 ED Note-Nursing Pt [facility] to ED [facility] complaining of left sided abdominal pain that started at 430pm. 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 She denies any other complaints. Pt states that she had a normal BM today. She is currently resting on cart. [facility] ED Patient Education Noteon 04-07-2022 ED Patient Education Note Education Materials [facility] ED Patient Summaryon 022 ED Patient Summary [facility] - Emergency Department [address] [place] [id number] PATIENT DISCHARGE INSTRUCTIONS Patient Information Name: ALFREDO SOSA Age: 67 Years Date of : 1955 Reason For Visit: Abdominal pain; ABDOMINAL PAIN Arrival Time: 04/06/2022 23:46:10 Primary Care Physician: Cathy Rangel Attending Physician: Mariano Javier MD Comment: Visit Diagnosis: Diagnoses This Visit Abdominal pain ([id number]) Partial small bowel obstruction (K56.600) Prescription Information: If you have been given a prescription for narcotics, seek immediate medical attention if you have any difficulty breathing or any sudden status changes such as confusion and sleepiness. If you or anyone you know is experiencing suicidal thoughts, mental health, alcohol and/or drug addiction problems; contact the [facility] 18/04 Crisis Hotline -Text 4HMRH sz 733637. If you received any narcotics, sedation, or any other medication that causes drowsiness for the next 24 hours, unless otherwise directed: ? Do not drive a car. ? Do not operate machinery such as power tools, lawn mowers, drills, sewing machines, or stoves ? Avoid alcoholic beverages and drugs for allergies, nerves, or sleep ? Do not make important personal or business decisions or sign any legal documents Medication Information: The exam and treatment you received today in the [facility] Emergency Department were for an urgent problem and are not intended as complete care. It is important for you to follow up with a doctor, nurse practitioner, or physician?s painter assistant for ongoing care. If your symptoms become worse or you do not improve as expected and you are unable to reach your usual health care provider, you should return to the Emergency Department, we are available 24 hours a day. For those patients who have received Radiology results, the interpretation of your X-ray as given to you by our Emergency Department physician is only a preliminary report. The Radiologist will review your films and if there is a change in the diagnosis you will be notified by phone. Please make sure you have provided a working phone number so we can reach you if necessary. In the event that you had a lab culture while you were a patient in the Emergency Department, you will be notified by phone if there is a need to change your antibiotic. Please make sure you have provided a working phone number so we can reach you if necessary. [facility] Emergency Department has provided you with a complete list of medications post discharge. Please inform your document processor/provider of your visit and for further instruction on these medications. Any specific questions regarding your chronic medications and dosages should be discussed with your primary care physician(s) and/or pharmacist. Medications to Continue That Have Not Changed Other Medications apixaban (Eliquis Starter Pack for Treatment of DVT and PE 5 mg oral tablet) 1 tab(s) PO BID as directed on package labeling. Refills: 0. atorvastatin (atorvastatin 20 mg oral tablet) 1 tab(s) Oral once a day (at bedtime). calcium carbonate (Tums Ultra 1000 mg oral tablet, chewable) 1 tab(s) Chewed every day. hydroCHLOROthiazide 25 Milligram Oral 2 times a day. levothyroxine (levothyroxine 125 mcg (0.125 mg) oral capsule) 1 cap(s) Oral every day. Misc Prescription (Walker) Rolling walker for daily ambulation Dx: right knee pain. Refills: 0. multivitamin with minerals 1 tab(s) Oral every day. oxybutynin (oxybutynin 5 mg oral tablet) 1 tab(s) Oral 2 times a day. pantoprazole (pantoprazole 20 mg oral delayed release tablet) 1 tab(s) Oral every day. potassium chloride (potassium chloride 20 mEq oral tablet, extended release) 1 tab(s) Oral 2 times a day for 30 Days. [facility]. Refills: 0. Visit Information Allergies: Substance Reaction Symptoms Type Comments acetaminophen-codeine Stomach upset Drug Vital Signs: Vitals and Measurements this Visit (last charted value for your 04/06/2022 visit) Vital Signs This Visit Temperature Oral: 36.9 DegC Peripheral Pulse Rate: 16 bpm Respiratory Rate: 16 br/min Systolic Blood Pressure: 117 mmHg Diastolic Blood Pressure: 63 mmHg SpO2: 98 % Oxygen Therapy: Room air Measurements This Visit Height/Length Dosin.000 cm Height/Length Estimated: 176.000 cm Weight Dosin.190 kg Weight Estimated: 81.190 kg Problems List: Problem Onset Comments Anxiety Chondrocalcinosis Forgetful Hypercholesterolemia Hypothyroidism Intolerant of ambient temperature Joint pain Lack of energy Obesity Osteoarthritis of left knee Sprain of interphalangeal joint of second toe of left foot Vitamin D deficiency Patient Education Viruses or Bacteria What?s got you sick? Antibiotics only treat bacterial infections. Viral illne (more content not included)... Normal [facility] Extra Blueon 04-07-2022 Tube Collected Yes Invalid Interpretation Code [facility] Comment on above: Performed By: #### 5 [id number], [id number] ####[facility] (DEFAULT)[address] [place] [address] FFP, Transfuseon 04-07-2022 FFP, Transfuse Unit Number [id number] Blood Component Type FRESH PLASMA Unit Division 00 Status of Unit TRANSFUSED Transfusion Status OK TO TRANSFUSE [facility] Comment on above: Performed By: #### T FFP #### [address] [address] Alarm Service Technician: Grzegorz Tijerina MD FFP, Transfuse Unit Number [id number] Blood Component Type FRESH PLASMA Unit Division 00 Status of Unit TRANSFUSED Transfusion Status OK TO TRANSFUSE [facility] Comment on above: Performed By: #### L ACDS, PT #### [address] [address] Alarm Service Technician: Grzegorz Tijerina MD Fibrinogenon 04-07-2022 Fibrinogen 401 mg/dL Normal 140-420 [facility] Comment on above: Performed By: #### P LT, PTT, PT, FIB #### [address] [address] Alarm Service Technician: Grzegorz Tijerina MD Fibrinogen 401 mg/dL 140 - 420 mg/dL [facility] Lactate, Sepsison 04-07-2022 Lactic Acid,Sep Wbld 1.4 mmol/L Normal 0.5-1.9 [facility] Comment on above: Performed By: #### L ACDS, PT #### [address] [address] Alarm Service Technician: Grzegorz Tijerina MD Lactic Acid, Sepsis, Whole Blood 1.4 mmol/L 0.5 - 1.9 mmol/L [facility] Magnesiumon 04-07-2022 Magnesium [Mass/Vol] 1.96 mg/dL Normal 1.80-2.50 [facility] Comment on above: Performed By: #### 5 [id number], [id number], [id number], [id number] ####[facility] (DEFAULT)[address] [place] [address] No Panel Informationon 04-07 [facility] PTon 04-07-2022 INR Coag (PPP) [Relative time] 1.4 {INR} Normal [facility] Comment on above: Result Comment: Therapeutic Range: Moderate Anticoagulant Intensity: INR = 2.0-3.0 High Anticoagulant Intensity: INR = 2.5-3.5 Performed By: #### L ACDS, PT #### [employer] [address] [place], [place] [id number] Alarm Service Technician: Grzegorz Tijerina MD PT Coag (PPP) [Time] 14.1 s High 9.1-12.3 [facility] Comment on above: Performed By: #### L ACDS, PT #### [employer] [address] [place], [place] [id number] Alarm Service Technician: Grzegorz Tijerina MD INR Coag (PPP) [Relative time] 2.9 {INR} Normal [facility] Comment on above: Result Comment: Therapeutic Range: Moderate Anticoagulant Intensity: INR = 2.0-3.0 High Anticoagulant Intensity: INR = 2.5-3.5 Performed By: #### L ACDS, PT #### [employer] [address] [place] [address] Alarm Service Technician: Grzegorz Tijerina MD PT Coag (PPP) [Time] 28.2 s High 9.1-12.3 [facility] Comment on above: Performed By: #### L ACDS, PT #### [employer] [address] [place], [place] [address], [place] [address] Alarm Service Technician: Grzegorz Tijerina MD Platelet Counton 04-07-2022 Platelets (Bld) [#/Vol] 201 10*3/uL Normal 138-453 [facility] Comment on above: Performed By: #### P LT, PTT, PT, FIB #### [facility] [address] [place] [address] Alarm Service Technician: Grzegorz Tijerina MD Platelets (Bld) [#/Vol] 201 10*3/uL [facility] Protime-INRon 04-07-2022 INR Coag (Bld) [Relative time] 1.4 {INR} [facility] Comment on above: Therapeutic Range: Moderate Anticoagulant Intensity: INR = 2.0-3.0 High Anticoagulant Intensity: INR = 2.5-3.5 Interpretation and review of laboratory results Abnormal [facility] PT Coag (PPP) [Time] 14.1 s High [facility] INR Coag (Bld) [Relative time] 2.9 {INR} [facility] Comment on above: Therapeutic Range: Moderate Anticoagulant Intensity: INR = 2.0-3.0 High Anticoagulant Intensity: INR = 2.5-3.5 Interpretation and review of laboratory results Abnormal [facility] PT Coag (PPP) [Time] 28.2 s High [facility] SARS-CoV-2 (COVID-19) PCRon 04-07-2022 Employed in healthcare? No Invalid Interpretation Code [facility] Comment on above: Performed By: #### 6 [id number] ####[facility] (DEFAULT)[address] [place] [address] Group care resident? No Invalid Interpretation Code [facility] Comment on above: Performed By: #### 6 [id number] ####[facility] (DEFAULT)[address] [place] [address] In ICU? No Invalid Interpretation Code [facility] Comment on above: Performed By: #### 6 [id number] ####[facility] (DEFAULT)[address] [place] [address] status? Not Invalid Interpretation Code [facility] Comment on above: Performed By: #### 6 [id number] ####[facility] (DEFAULT)[address] [place] [address] SARS-CoV-2 (COVID-19) RNA KATIA+probe Ql (Unsp spec) Not detected Normal Not Detected [facility] Comment on above: Result Comment: Perf ormed by PCR methodology. Performed By: #### 6 [id number] ####[facility] (DEFAULT)[address] [place] [address] SARS-CoV-2 (COVID-19) RNA KATIA+probe Ql (Unsp spec) No Invalid Interpretation Code [facility] Comment on above: Performed By: #### 6 [id number] ####[facility] (DEFAULT)[address] [place] [address] Symptomatic as defined by CDC? No Invalid Interpretation Code [facility] Comment on above: Performed By: #### 6 [id number] ####[facility] (DEFAULT)[address] [place] [address] Surgical Pathologyon 022 Surgical Pathology (NOTE) -- Diagnosis -- PARTIAL SMALL BOWEL, RESECTION: -BENIGN SMALL INTESTINAL TISSUE WITH SEROSAL ADHESIONS. Twan Marino M.D. Electronically Signed Out 04/09/2022 Clinical Information Pre-Operative Diagnosis: BOWEL OBSTRUCTION Operative Findings: PORTION OF SMALL BOWEL Operation Performed: DIAGNOSTIC LAPAROSCOPY Source of Specimen A: PORTION OF SMALL BOWEL Gross Description ALFREDO SOSA, PORTION OF SMALL BOWEL Irregular segment of small bowel with one staple line that measures 2.5 x 0.9 cm. The serosa is marcos and ragged with possible serosal adhesions. The staple line is removed and the underlying small bowel is inked blue. Serially sectioned. tm Microscopic Description Microscopic examination performed. SURGICAL PATHOLOGY CONSULTATION Patient Name: ALFREDO SOSA [facility] Rec: [id number] Path Number: [id number] [facility] [employer] CONSULTING PATHOLOGISTS [facility] EM[facility] ANATOMIC PATHOLOGY [address] [place] [address]. [place], [place] [address] Normal [facility] Comment on above: Performed By: #### L ACDS, PT #### [facility] [address] [place] [address] Alarm Service Technician: Grzegorz Tijerina MD TnI HSon 04-07-2022 Troponin I High Sensitivity 2 pg/mL Normal <=15 [facility] Comment on above: Result Comment: Male Baseline Delta 1Hr (Note pg/mL=ng/L) <20pg/mL 50-60% >20pg/mL 20% Female Baseline Delta 1Hr <15pg/mL 50-60% >15pg/mL 20% Other Baseline Delta 1Hr <18ng/mL 50-60% >18ng/mL 20% ([employer] Guidelines April 2018) Performed By: #### 5 [id number], [id number] ####[facility] (DEFAULT)[address] [place] [address] Transfer Noteon 04-07-2022 Transfer Note [id number] TIFF Normal [facility] Transfer Note 0124 - called [facility] Access to [place] [facility] for transfer 0137 - [facility] called with general surgeon Dr. Bell and Dr. Neves ER attending both accepted this patient as an ER to ER transfer 0149 - called [facility] for transport.. ETA: 15 min. [Electronically Signed on: 04/07/2022 02:04 EDT] Kathy Floyd [Verified on: 04/07/2022 02:04 EDT] Kathy Floyd 0209 - [facility] arrived 0221 - [facility] departed A copy of the patient's chart and XR disc was given to the transport crew. Home medications are documented in the patient's chart as well. [Electronically Signed on: 04/07/2022 02:25 EDT] Kathy Floyd Normal [facility] Type + Screenon 04-07-2022 Type + Screen Sample Expiration 04/10/2022,2359 Arm Band Number [id number] ABO/Rh(D) B POSITIVE Antibody Screen NEGATIVE Unit Number [id number] Blood Component Type Leukocyte Reduced Red Cell Unit Division 00 Status of Unit REL FROM ALLOC Transfusion Status OK TO TRANSFUSE Crossmatch Result COMPATIBLE Unit Number [id number] Blood Component Type Leukocyte Reduced Red Cell Unit Division 00 Status of Unit REL FROM ALLOC Transfusion Status OK TO TRANSFUSE Crossmatch Result COMPATIBLE Normal [facility] Comment on above: Performed By: #### T YS #### [facility] [employer] [facility] [place] [address] Alarm Service Technician: Grzegorz Tijerina MD CT Abdomen/Pelvis w/o Contra matthew 04-06-2022 CT Abdomen/Pelvis w/o Contrast CT Abdomen/Pelvis w/o Contrast: 04/07/2022 12:37 AM EDT CLINICAL HISTORY: 67 years old Female with Abdominal Pain. TECHNIQUE: Axial CT images through the abdomen and pelvis are obtained without the intravenous administration of contrast. Coronal and sagittal reformations are also obtained. Dose reduction techniques were achieved by using automated exposure control and/or adjustment of mA and/or kV according to patient size and/or use of iterative reconstruction technique. COMPARISON: None available. FINDINGS: The lung bases are clear with no dependent infiltrate or effusion. Without the use of IV or oral contrast the study is limited by incomplete evaluation of the blood vessels, solid visceral organs and bowel. The spleen, pancreas and bilateral adrenal glands are unremarkable. Multiple small simple hepatic cysts measuring up to 1.5 cm are present. Tiny calcified layering densities within the gallbladder compatible with cholelithiasis. No intrahepatic or extrahepatic biliary ductal dilatation. Elongation of the right lobe likely Italo's lobe of the liver. Post surgical change of gastric bypass surgery is present. There is focal mucosal thickening at the small bowel anastomoses at the left abdomen with abnormal distention of the small bowel intraluminal fecal content at the left upper abdomen measuring up to 3.6 cm with air-fluid leveling within the pelvis measuring up to 3.3 cm with abrupt transition point within the right lower quadrant (series 2 image 117) within the proximal mid ileum most concerning for partial small bowel obstruction. There is mild swelling of the mesentery and mesenteric edema at the anastomotic site concerning for possible internal hernia with evaluation degraded secondary to lack of oral contrast. Fecal debris is present within the colon. The appendix is visualized without inflammatory change. The left colon is predominantly nondistended. The bilateral kidneys are unremarkable with no renal calculi or hydronephrosis. Simple cyst of the lower pole of the left kidney measures 4.8 x 5.3 x 6.2 cm in AP, transverse and longitudinal diameter. The bilateral ureters demonstrate no gross abnormality or obstruction. The bladder appears unremarkable. There is no evidence of aortic aneurysm. No enlarged lymph nodes are seen. No free air or free fluid is seen. Mild thickening of the posterior uterine wall likely fibroid. Uterus is not abnormally enlarged. No adnexal mass. Multilevel discogenic degenerative change throughout the spine is present with vacuum disc phenomena L2-L3 and L5-chest 1 with lower lumbar facet arthropathy. No compression fracture deformity or suspicious osseous abnormality. Degenerative change of the right femoral acetabular joint with osseous remodeling. IMPRESSION: 1. Likely partial versus early complete small bowel obstruction with transition point at the right lower quadrant within the approximate mid ileum. 2.Gastric bypass post surgical change with additional abnormal swirling of the mesentery and mild mucosal thickening at the small bowel to small bowel anastomosis at the left upper abdomen with mesenteric edema and intraluminal fecal content of small bowel concerning for possible internal hernia. Finding could represent early closed loop obstruction. 3. Cholelithiasis without evidence of acute cholecystitis. 4. Simple hepatic cysts and left renal cyst. 5. Likely small uterine fibroid. Final Dictated by: Natividad Lujan DO Dictated DT/TM: 04/07/22 0:58 Signed (Electronic Signature): Natividad Lujan DO 04/07/22 1:12 am Technologist: [facility] Vitamin B1on 01-14-2022 Vitamin B1 168 nmol/L Normal 70-180 [facility] Comment on above: Result Comment: (NOT E) INTERPRETIVE INFORMATION: Vitamin B1, Whole Blood This assay measures the concentration of thiamine diphosphate (TDP), the primary active form of vitamin B1. Approximately 90 percent of vitamin B1 present in whole blood is TDP. Thiamine and thiamine monophosphate, which comprise the remaining 10 percent, are not measured. This test was developed and its performance characteristics determined by [facility]. It has not been cleared or approved by the [place] Food and Drug Administration. This test was performed in a CLIA certified laboratory and is intended for clinical purposes. Performed By: [facility] [address] [place] [address] Wine Pasteurizer: Edie Alas MD Performed By: #### A VITB1, JUNOTAKris, FRANCESCAN #### [facility] [address] [place] [address] Alarm Service Technician: Shahid Damon MD #### LIPR, TSH, MG, CP, CDP #### [facility] [address] [place], [place] [id number] Alarm Service Technician: Michelet Kiran DO #### VD25, B12FOL, FEBC, PTHNCA #### [facility] [address] [place], [place] [id number] Alarm Service Technician: Grzegorz Tijerina MD Zinc, Serumon 2022 Zinc, Serum 67.4 ug/dL Normal 60.0-120.0 [facility] Comment on above: Result Comment: (NOT E) INTERPRETIVE INFORMATION: Zinc, Serum or Plasma Elevated results may be due to skin or collection-related contamination, including the use of a noncertified metal-free collection/transport tube. If contamination concerns exist due to elevated levels of serum/plasma zinc, confirmation with a second specimen collected in a certified metal-free tube is recommended. Circulating zinc concentrations are dependent on albumin status and are depressed with malnutrition. Zinc may also be lowered with infection, inflammation, stress, oral contraceptives, and . Zinc may be elevated with zinc supplementation or fasting. Elevated zinc concentrations may interfere with copper absorption. This test was developed and its performance characteristics determined by [facility]. It has not been cleared or approved by the [place] Food and Drug Administration. This test was performed in a CLIA certified laboratory and is intended for clinical purposes. Performed By: [facility] [address] [place] [address] Wine Pasteurizer: Edie Alas MD Performed By: #### A VITB1, DEMETRIO, AZN #### [address] [address] Alarm Service Technician: Shahid Damon MD #### LIPR, TSH, MG, CP, CDP #### [facility] [address] [place] [address] Alarm Service Technician: Michelet Kiran DO #### VD25, B12FOL, FEBC, PTHNCA #### [address] [address] Alarm Service Technician: Grzegorz Tijerina MD Vitamin Aon 01-11-2022 Interpretation Normal Normal [facility] Comment on above: Result Comment: (NOT E) This test was developed and its performance characteristics determined by [facility]. It has not been cleared or approved by the [place] Food and Drug Administration. This test was performed in a CLIA certified laboratory and is intended for clinical purposes. Performed By: [facility] [address] [place], [place] [id number] Wine Pasteurizer: Edie Alas MD Performed By: #### A VITB1, DEMETRIO, FRANCESCAN #### [address] [address] Alarm Service Technician: Shahid Damon MD #### LIPR, TSH, MG, CP, CDP #### [facility] [address] [place] [address] Alarm Service Technician: Michelet Kiran DO #### VD25, B12FOL, FEBC, PTHNCA #### [address] [address] Alarm Service Technician: Grzegorz Tijerina MD Retinol (Vitamin A) 0.53 mg/L Normal 0.30-1.20 [facility] Comment on above: Performed By: #### A VITB1, AVITAS, AZN #### [facility] [address] [place] [address] Alarm Service Technician: Shahid Damon MD #### LIPR, TSH, MG, CP, CDP #### [facility] [address] [place] [address] Alarm Service Technician: Michelet Kiran DO #### VD25, B12FOL, FEBC, PTHNCA #### [address] [place], [place] [id number] Alarm Service Technician: Grzegorz Tijerina MD Retinyl Palmitate 0.05 mg/L Normal 0.00-0.10 [facility] Comment on above: Performed By: #### A VITB1, JUNOTAS, AZN #### [facility] [address] [place], [place] [id number] Alarm Service Technician: Shahid Damon MD #### LIPR, TSH, MG, CP, CDP #### [facility] [address] [place] [address] Alarm Service Technician: Michelet Kiran DO #### VD25, B12FOL, FEBC, PTHNCA #### [address] [id number] Alarm Service Technician: Grzegorz Tijerina MD B12/Folate Panelon 2 Folic Acid >20.0 Normal >4.8 [facility] Comment on above: Performed By: #### A VITB1, AVITAS, AZN #### [facility] [address] [place], [place] [id number] Alarm Service Technician: Shahid Damon MD #### LIPR, TSH, MG, CP, CDP #### [facility] [address] [place] [address] Alarm Service Technician: Fanelly, Michelet, DO #### VD25, B12FOL, FEBC, PTHNCA #### [address] [address] Alarm Service Technician: Grzegorz Tijerina MD Cobalamin (Vitamin B12) [Mass/Vol] 849 pg/mL Normal 232-1245 [facility] Comment on above: Performed By: #### A VITB1DEMETRIO AZN #### [facility] [address] [place], [place] [id number] Alarm Service Technician: Shahid Damon MD #### LIPR, TSH, MG, CP, CDP #### [facility] [place] [address] Alarm Service Technician: Michelet Kiran DO #### VD25, B12FOL, FEBC, PTHNCA #### [address] [address] Alarm Service Technician: Grzegorz Tijerina MD CBC with Diffon 01-08-2022 Abs. Basophil 0.10 k/uL Normal 0.0-0.2 [facility] Comment on above: Performed By: #### A DEMETRIO SHAH AZN #### [facility] [address] [place], [place] [id number] Alarm Service Technician: Shahid Damon MD #### LIPR, TSH, MG, CP, CDP #### [facility] [address] [place] [address] Alarm Service Technician: Michelet Kiran DO #### VD25, B12FOL, FEBC, PTHNCA #### [address] [address] Alarm Service Technician: Grzegorz Tijerina MD Abs.Neutrophil (Seg) 4.40 k/uL Normal 1.3-9.1 [facility] Comment on above: Performed By: #### A VITB1DEMETRIO AZN #### [facility] [address] [place] [address] Alarm Service Technician: Shahid Damon MD #### LIPR, TSH, MG, CP, CDP #### [facility] [address] [place] [address] Alarm Service Technician: Michelet Kiran DO #### VD25, B12FOL, FEBC, PTHNCA #### [address] [address] Alarm Service Technician: Grzegorz Tijerina MD Basophils/100 WBC (Bld) 2 % Normal 0-2 [facility] Comment on above: Performed By: #### A DEMETRIO SHAH AZN #### [facility] [address] [place] [address] Alarm Service Technician: Shahid Damon MD #### LIPR, TSH, MG, CP, CDP #### [facility] [address] [place] [address] Alarm Service Technician: Michelet Kiran DO #### VD25, B12FOL, FEBC, PTHNCA #### [address] [address] Alarm Service Technician: Grzegorz Tijerina MD Eosinophils (Bld) [#/Vol] 0.30 10*3/uL Normal 0.0-0.4 [facility] Comment on above: Performed By: #### A DEMETRIO SHAH AZN #### [facility] [address] [place] [address] Alarm Service Technician: Shahid Damon MD #### LIPR, TSH, MG, CP, CDP #### [facility] [address] [place] [address] Alarm Service Technician: Michelet Kiran DO #### VD25, B12FOL, FEBC, PTHNCA #### [address] [address] Alarm Service Technician: Grzegorz Tijerina MD Eosinophils/100 WBC (Bld) 5 % High 0-4 [facility] Comment on above: Performed By: #### A VITDEMETRIO St AZN #### [facility] [address] [place] [address] Alarm Service Technician: Shahid Damon MD #### LIPR, TSH, MG, CP, CDP #### [facility] [address] [place] [address] Alarm Service Technician: Michelet Kiran DO #### VD25, B12FOL, FEBC, PTHNCA #### [address] [place], [place] [phone] Alarm Service Technician: Grzegorz Tijerina MD Erythrocyte distribution width (RBC) [Ratio] 14.6 % Normal 11.5-14.9 [facility] Comment on above: Performed By: #### A DEMETRIO SHAH, FRANCESCAN #### [facility] [address] [place], [place] [id number] Alarm Service Technician: Shahid Damon MD #### LIPR, TSH, MG, CP, CDP #### [facility] [address] [place] [address] Alarm Service Technician: Michelet Kiran DO #### VD25, B12FOL, FEBC, PTHNCA #### [facility] [address] [place] [address] Alarm Service Technician: Grzegorz Tijerina MD Hematocrit (Bld) [Volume fraction] 42.9 % Normal 36-46 [facility] Comment on above: Performed By: #### A VITB1DEMETRIO, AZN #### [facility] [address] [place] [address] Alarm Service Technician: Shahid Damon MD #### LIPR, TSH, MG, CP, CDP #### [facility] [address] [place] [address] Alarm Service Technician: Michelet Kiran DO #### VD25, B12FOL, FEBC, PTHNCA #### [address] [address] Alarm Service Technician: Grzegorz Tijerina MD Hemoglobin (Bld) [Mass/Vol] 14.2 g/dL Normal 12.0-16.0 [facility] Comment on above: Performed By: #### A VITB1, AVITAS, AZN #### [facility] [address] [place], [place] [id number] Alarm Service Technician: Shahid Damon MD #### LIPR, TSH, MG, CP, CDP #### [facility] [address] [place] [address] Alarm Service Technician: Michelet Kiran DO #### VD25, B12FOL, FEBC, PTHNCA #### [address] [address] Alarm Service Technician: Grzegorz Tijerina MD Lymphocytes (Bld) [#/Vol] 1.20 10*3/uL Normal 1.0-4.8 [facility] Comment on above: Performed By: #### A VITB1, JUNOTAS, AZN #### [facility] [address] [place] [address] Alarm Service Technician: Shahid Damon MD #### LIPR, TSH, MG, CP, CDP #### [facility] [address] [place] [address] Alarm Service Technician: Michelet Kiran DO #### VD25, B12FOL, FEBC, PTHNCA #### [facility] [address] [place] [address] Alarm Service Technician: Grzegorz Tijerina MD Lymphocytes/100 WBC (Bld) 19 % Low 24-44 [facility] Comment on above: Performed By: #### A VITB1, AVITAS, AZN #### [facility] [address] [place], [place] [id number] Alarm Service Technician: Shahid Damon MD #### LIPR, TSH, MG, CP, CDP #### [facility] [address] [place] [address] Alarm Service Technician: Michelet Kiran DO #### VD25, B12FOL, FEBC, PTHNCA #### [address] [place] [address] Alarm Service Technician: Grzegorz Tijerina MD MCH (RBC) [Entitic mass] 26.6 pg Normal 26-34 [facility] Comment on above: Performed By: #### A VITB1, AVITAS, AZN #### [facility] [address] [place] [address] Alarm Service Technician: Shahid Damon MD #### LIPR, TSH, MG, CP, CDP #### [facility] [address] [place] [address] Alarm Service Technician: Michelet Kiran DO #### VD25, B12FOL, FEBC, PTHNCA #### [address] [address] Alarm Service Technician: Grzegorz Tijerina MD MCHC (RBC) [Mass/Vol] 33.2 g/dL Normal 31-37 [facility] Comment on above: Performed By: #### A VITB1, AVITAS, AZN #### [facility] [address] [place] [address] Alarm Service Technician: Shahid Damon MD #### LIPR, TSH, MG, CP, CDP #### [facility] [address] [place] [address] Alarm Service Technician: Michelet Kiran DO #### VD25, B12FOL, FEBC, PTHNCA #### [address] [address] Alarm Service Technician: Grzegorz Tijerina MD MCV (RBC) [Entitic vol] 80.0 fL Normal 80-100 [facility] Comment on above: Performed By: #### A VITB1, JOSES, AZN #### [facility] [address] [place] [address] Alarm Service Technician: Shahid Damon MD #### LIPR, TSH, MG, CP, CDP #### [facility] [address] [place] [address] Alarm Service Technician: Michelet Kiran DO #### VD25, B12FOL, FEBC, PTHNCA #### [address] [address] Alarm Service Technician: Grzegorz Tijerina MD Monocytes (Bld) [#/Vol] 0.40 10*3/uL Normal 0.1-1.3 [facility] Comment on above: Performed By: #### A DEMETRIO SHAH AZN #### [facility] [address] [place], [place] [id number] Alarm Service Technician: Shahid Damon MD #### LIPR, TSH, MG, CP, CDP #### [facility] [address] [place] [address] Alarm Service Technician: Michelet Kiran DO #### VD25, B12FOL, FEBC, PTHNCA #### [address] [address] Alarm Service Technician: Grzegorz Tijerina MD Monocytes/100 WBC (Bld) 7 % Normal 1-7 [facility] Comment on above: Performed By: #### A VITB1DEMETRIO, AZN #### [facility] [address] [place], [place] [id number] Alarm Service Technician: Shahid Damon MD #### LIPR, TSH, MG, CP, CDP #### [facility] [address] [place] [address] Alarm Service Technician: Michelet Kiran DO #### VD25, B12FOL, FEBC, PTHNCA #### [facility] [address] [place], [place] [phone] Alarm Service Technician: Grzegorz Tijerina MD Neutrophil (Seg) 67 % High 36-66 [facility] Comment on above: Performed By: #### A VITB1DEMETRIO AZN #### [facility] [address] [place], [place] [id number] Alarm Service Technician: Shahid Damon MD #### LIPR, TSH, MG, CP, CDP #### [facility] [place] [address] Alarm Service Technician: Michelet Kiran DO #### VD25, B12FOL, FEBC, PTHNCA #### [facility] [address] [place] [id number] Alarm Service Technician: Grzegorz Tijerina MD Platelet mean volume (Bld) [Entitic vol] 8.7 fL Normal 6.0-12.0 [facility] Comment on above: Performed By: #### A DEMETRIO SHAH AZN #### [facility] [address] [place], [place] [id number] Alarm Service Technician: Shahid Damon MD #### LIPR, TSH, MG, CP, CDP #### [facility] [address] [place] [address] Alarm Service Technician: Michelet Kiran DO #### VD25, B12FOL, FEBC, PTHNCA #### [address] [place], [place] [id number] Alarm Service Technician: Grzegorz Tijerina MD Platelets (Bld) [#/Vol] 235 10*3/uL Normal 150-450 [facility] Comment on above: Performed By: #### A DEMETRIO SHAH AZN #### [facility] [address] [place] [address] Alarm Service Technician: Shahid Damon MD #### LIPR, TSH, MG, CP, CDP #### [facility] [address] [place] [address] Alarm Service Technician: Michelet Kiran DO #### VD25, B12FOL, FEBC, PTHNCA #### [address] [address] Alarm Service Technician: Grzegorz Tijerina MD RBC (Bld) [#/Vol] 5.36 10*6/uL High 4.0-5.2 [facility] Comment on above: Performed By: #### A DEMETRIO SHAH AZN #### [facility] [address] [place] [address] Alarm Service Technician: Shahid Damon MD #### LIPR, TSH, MG, CP, CDP #### [facility] [address] [place] [address] Alarm Service Technician: Michelet Kiran DO #### VD25, B12FOL, FEBC, PTHNCA #### [facility] [address] [place] [address] Alarm Service Technician: Grzegorz Tijerina MD WBC (Bld) [#/Vol] 6.4 10*3/uL Normal 3.5-11.0 [facility] Comment on above: Performed By: #### A DEMETRIO SHAH AZN #### [facility] [address] [place] [address] Alarm Service Technician: Shahid Damon MD #### LIPR, TSH, MG, CP, CDP #### [facility] [address] [facility] [place] [address] Alarm Service Technician: Michelet Kiran DO #### VD25, B12FOL, FEBC, PTHNCA #### [address] [place] [address] Alarm Service Technician: Grzegorz Tijerina MD Comp Metabolic Profon 2021 (cont.) Normal [facility] Comment on above: Result Comment: Aver age GFR for 60-69 years old: 85 mL/min/1.73sq m Chronic Kidney Disease: <60 mL/min/1.73sq m Kidney failure: <15 mL/min/1.73sq m eGFR calculated using average adult body mass. Additional eGFR calculator available at: [email or web address] Performed By: #### A DEMETRIO SHAH AZN #### [facility] [address] [place] [address] Alarm Service Technician: Shahid Damon MD #### LIPR, TSH, MG, CP, CDP #### [facility] [address] [facility] [place] [address] Alarm Service Technician: Michelet Kiran DO #### VD25, B12FOL, FEBC, PTHNCA #### [address] [place] [address] Alarm Service Technician: Grzegorz Tijerina MD Albumin [Mass/Vol] 4.3 g/dL Normal 3.5-5.2 [facility] Comment on above: Performed By: #### A DEMETRIO SHAH AZN #### [facility] [address] [place] [address] Alarm Service Technician: Shahid Damon MD #### LIPR, TSH, MG, CP, CDP #### [facility] [address] [facility] [place] [address] Alarm Service Technician: Michelet Kiran DO #### VD25, B12FOL, FEBC, PTHNCA #### [address] [address] Alarm Service Technician: Grzegorz Tijerina MD Alkaline Phos 110 U/L High 35-104 [facility] Comment on above: Performed By: #### A VITB1, JUNOTAS, AZN #### [facility] [address] [place] [address] Alarm Service Technician: Shahid Damon MD #### LIPR, TSH, MG, CP, CDP #### [facility] [address] [place] [address] Alarm Service Technician: Michelet Kiran DO #### VD25, B12FOL, FEBC, PTHNCA #### [address] [id number] Alarm Service Technician: Grzegorz Tijerina MD ALT [Catalytic activity/Vol] 19 U/L Normal 5-33 [facility] Comment on above: Performed By: #### A DEMETRIO SHAH, FRANCESCAN #### [facility] [address] [place] [id number] Alarm Service Technician: Shahid Damon MD #### LIPR, TSH, MG, CP, CDP #### [facility] [address] [place] [address] Alarm Service Technician: Michelet Kiran DO #### VD25, B12FOL, FEBC, PTHNCA #### [address] [address] Alarm Service Technician: Grzegorz Tijerina MD Anion gap [Moles/Vol] 12 mmol/L Normal 9-17 [facility] Comment on above: Performed By: #### A VITB1, JUNOTAS, AZN #### [facility] [address] [place] [address] Alarm Service Technician: Shahid Damon MD #### LIPR, TSH, MG, CP, CDP #### [facility] [address] [place] [address] Alarm Service Technician: Michelet Kiran DO #### VD25, B12FOL, FEBC, PTHNCA #### [address] [place], [place] [phone] Alarm Service Technician: Grzegorz Tijerina MD AST [Catalytic activity/Vol] 20 U/L Normal <32 [facility] Comment on above: Performed By: #### A VITB1, JUNOTAS, AZN #### [facility] [address] [place], [place] [id number] Alarm Service Technician: Shahid Damon MD #### LIPR, TSH, MG, CP, CDP #### [facility] [address] [place] [address] Alarm Service Technician: Michelet Kiran DO #### VD25, B12FOL, FEBC, PTHNCA #### [address] [id number] Alarm Service Technician: Grzegorz Tijerina MD Bilirubin [Mass/Vol] 0.33 mg/dL Normal 0.3-1.2 [facility] Comment on above: Performed By: #### A VITB1, JOSES, AZN #### [facility] [address] [place], [place] [id number] Alarm Service Technician: Shahid Damon MD #### LIPR, TSH, MG, CP, CDP #### [facility] [address] [place] [address] Alarm Service Technician: Michelet Kiran DO #### VD25, B12FOL, FEBC, PTHNCA #### [address] [id number] Alarm Service Technician: Grzegorz Tijerina MD Calcium [Mass/Vol] 9.8 mg/dL Normal 8.6-10.4 [facility] Comment on above: Performed By: #### A DEMETRIO SHAH AZN #### [facility] [address] [place], [place] [id number] Alarm Service Technician: Shahid Damon MD #### LIPR, TSH, MG, CP, CDP #### [facility] [address] [place] [address] Alarm Service Technician: Michelet Kiran DO #### VD25, B12FOL, FEBC, PTHNCA #### [address] [id number] Alarm Service Technician: Grzegorz Tijerina MD Chloride [Moles/Vol] 100 mmol/L Normal 98-107 [facility] Comment on above: Performed By: #### A DEMETRIO SHAH AZN #### [facility] [address] [place], [place] [id number] Alarm Service Technician: Shahid Damon MD #### LIPR, TSH, MG, CP, CDP #### [facility] [address] [place] [address] Alarm Service Technician: Michelet Kiran DO #### VD25, B12FOL, FEBC, PTHNCA #### [address] [address] Alarm Service Technician: Grzegorz Tijerina MD CO2 [Moles/Vol] 29 mmol/L Normal 20-31 [facility] Comment on above: Performed By: #### A DEMETRIO SHAH AZN #### [facility] [address] [place], [place] [id number] Alarm Service Technician: Shahid Damon MD #### LIPR, TSH, MG, CP, CDP #### [facility] [address] [place] [address] Alarm Service Technician: Michelet Kiran DO #### VD25, B12FOL, FEBC, PTHNCA #### [address] [address] Alarm Service Technician: Grzegorz Tijerina MD Creatinine [Mass/Vol] 0.55 mg/dL Normal 0.50-0.90 [facility] Comment on above: Performed By: #### A VITB1DEMETRIO AZN #### [facility] [address] [place] [address] Alarm Service Technician: Shahid Damon MD #### LIPR, TSH, MG, CP, CDP #### [facility] [place] [address] Alarm Service Technician: Michelet Kiran DO #### VD25, B12FOL, FEBC, PTHNCA #### [address] [address] Alarm Service Technician: Grzegorz Tijerina MD GFR, Amer >60 Normal >60 [facility] Comment on above: Performed By: #### A DEMETRIO SHAH AZN #### [facility] [address] [place] [address] Alarm Service Technician: Shahid Damon MD #### LIPR, TSH, MG, CP, CDP #### [facility] [place] [address] Alarm Service Technician: Michelet Kiran DO #### VD25, B12FOL, FEBC, PTHNCA #### [facility] [address] [place] [address] Alarm Service Technician: Grzegorz Tijerina MD GFR,non Amer >60 Normal >60 [facility] Comment on above: Performed By: #### A VITB1, JOSES, AZN #### [facility] [address] [place] [address] Alarm Service Technician: Shahid Damon MD #### LIPR, TSH, MG, CP, CDP #### [facility] [address] [place] [address] Alarm Service Technician: Michelet Kiran DO #### VD25, B12FOL, FEBC, PTHNCA #### [address] [place], [place] [id number] Alarm Service Technician: Grzegorz Tijerina MD Glucose [Mass/Vol] 96 mg/dL Normal 70-99 [facility] Comment on above: Performed By: #### A VITB1, JUNOTAS, AZN #### [facility] [address] [place], [place] [id number] Alarm Service Technician: Shahid Damon MD #### LIPR, TSH, MG, CP, CDP #### [facility] [address] [place] [address] Alarm Service Technician: Michelet Kiran DO #### VD25, B12FOL, FEBC, PTHNCA #### [address] [id number] Alarm Service Technician: Grzegorz Tijerina MD Potassium [Moles/Vol] 4.0 mmol/L Normal 3.7-5.3 [facility] Comment on above: Performed By: #### A VITB1, DEMETRIO, AZN #### [facility] [address] [place], [place] [id number] Alarm Service Technician: Shahid Damon MD #### LIPR, TSH, MG, CP, CDP #### [facility] [address] [place] [address] Alarm Service Technician: Michelet Kiran DO #### VD25, B12FOL, FEBC, PTHNCA #### [facility] [address] [place] [id number] Alarm Service Technician: Grzegorz Tijerina MD Protein [Mass/Vol] 7.1 g/dL Normal 6.4-8.3 [facility] Comment on above: Performed By: #### A DEMETRIO SHAH AZN #### [facility] [address] [place], [place] [id number] Alarm Service Technician: Shahid Damon MD #### LIPR, TSH, MG, CP, CDP #### [facility] [address] [place] [address] Alarm Service Technician: Michelet Kiran DO #### VD25, B12FOL, FEBC, PTHNCA #### [address] [id number] Alarm Service Technician: Grzegorz Tijerina MD Sodium [Moles/Vol] 141 mmol/L Normal 135-144 [facility] Comment on above: Performed By: #### A DEMETRIO SHAH AZN #### [facility] [address] [place], [place] [id number] Alarm Service Technician: Shahid Damon MD #### LIPR, TSH, MG, CP, CDP #### [facility] [address] [place] [id number] Alarm Service Technician: Michelet Kiran DO #### VD25, B12FOL, FEBC, PTHNCA #### [address] [id number] Alarm Service Technician: Grzegorz Tijerina MD Urea nitrogen [Mass/Vol] 8 mg/dL Normal 8-23 [facility] Comment on above: Performed By: #### A DEMETRIO SHAH AZN #### [facility] [address] [place], [place] [id number] Alarm Service Technician: Shahid Damon MD #### LIPR, TSH, MG, CP, CDP #### [facility] [place] [address] Alarm Service Technician: Michelet Kiran DO #### VD25, B12FOL, FEBC, PTHNCA #### [address] [address] Alarm Service Technician: Grzegorz Tijerina MD Lipid Profileon 01-08-2022 Cholesterol [Mass/Vol] 177 mg/dL Normal <200 [facility] Comment on above: Result Comment: Cholesterol Guidelines: <200 Desirable 200-240 Borderline >240 Undesirable Performed By: #### A VITB1, JUNOTAS, AZN #### [facility] [address] [place] [address] Alarm Service Technician: Shahid Damon MD #### LIPR, TSH, MG, CP, CDP #### [facility] [address] [place], [place] [id number] Alarm Service Technician: Michelet Kiran DO #### VD25, B12FOL, FEBC, PTHNCA #### [address] [address] Alarm Service Technician: Grzegorz Tijerina MD Cholesterol in HDL [Mass/Vol] 60 mg/dL Normal >40 [facility] Comment on above: Result Comment: HDL Guidelines: <40 Undesirable 40-59 Borderline >59 Desirable Performed By: #### A VITB1, AVITAS, AZN #### [facility] [address] [place] [address] Alarm Service Technician: Shahid Damon MD #### LIPR, TSH, MG, CP, CDP #### [facility] [address] [place] [address] Alarm Service Technician: Michelet Kiran DO #### VD25, B12FOL, FEBC, PTHNCA #### [facility] [address] [place] [address] [phone] Alarm Service Technician: Grzegorz Tijerina MD Cholesterol in LDL [Mass/Vol] 96 mg/dL Normal 0-130 [facility] Comment on above: Result Comment: LDL Guidelines: <100 Desirable 100-129 Near to/above Desirable 130-159 Borderline >159 Undesirable Direct (measured) LDL and calculated LDL are not interchangeable tests. Performed By: #### A DEMETRIO SHAH AZN #### [facility] [address] [place] [address] Alarm Service Technician: Shahid Damon MD #### LIPR, TSH, MG, CP, CDP #### [facility] [address] [place] [address] Alarm Service Technician: Michelet Kiran DO #### VD25, B12FOL, FEBC, PTHNCA #### [facility] [employer] [facility] [place], [place] [phone] Alarm Service Technician: Grzegorz Tijerina MD Cholesterol.total/Ch olesterol in HDL [Mass ratio] 3.0 {ratio} Normal <5 [facility] Comment on above: Performed By: #### A DEMETRIO SHAH AZN #### [facility] [address] [place] [address] Alarm Service Technician: Shahid Damon MD #### LIPR, TSH, MG, CP, CDP #### [facility] [place] [address] Alarm Service Technician: Michelet Kiran DO #### VD25, B12FOL, FEBC, PTHNCA #### [facility] [address] [place] [address] [phone] Alarm Service Technician: Grzegorz Tijerina MD Triglyceride [Mass/Vol] 104 mg/dL Normal <150 [facility] Comment on above: Result Comment: Triglyceride Guidelines: <150 Desirable 150-199 Borderline 200-499 High >499 Very high Based on AHA Guidelines for fasting triglyceride, June 2012. Performed By: #### A DEMETRIO SHAH AZN #### [facility] [address] [place] [address] Alarm Service Technician: Shahid Damon MD #### LIPR, TSH, MG, CP, CDP #### [facility] [address] [facility] [place] [address] Alarm Service Technician: Michelet Kiran DO #### VD25, B12FOL, FEBC, PTHNCA #### [facility] [address] [place] [address] Alarm Service Technician: Grzegorz Tijerina MD Magnesiumon 01-08-2022 Magnesium [Mass/Vol] 1.7 mg/dL Normal 1.6-2.6 [facility] Comment on above: Performed By: #### A DEMETRIO SHAH AZN #### [facility] [address] [place] [address] Alarm Service Technician: Shahid Damon MD #### LIPR, TSH, MG, CP, CDP #### [facility] [address] [facility] [place] [address] Alarm Service Technician: Michelet Kiran DO #### VD25, B12FOL, FEBC, PTHNCA #### [address] [address] Alarm Service Technician: Grzegorz Tijerina MD PTH, Intacton 6 PTH, Intact 52.39 pg/mL Normal 15.0-65.0 [facility] Comment on above: Result Comment: SAMP LES FROM PATIENTS ROUTINELY RECEIVING HIGH DOSE BIOTIN THERAPY MAY SHOW FALSELY DEPRESSED RESULTS. ADDITIONAL INFORMATION MAY BE REQUIRED FOR DIAGNOSIS. Performed By: #### A VITDEMETRIO St AZN #### [facility] [address] [place] [address] Alarm Service Technician: Shahid Damon MD #### LIPR, TSH, MG, CP, CDP #### [facility] [address] [facility] [place] [address] Alarm Service Technician: Michelet Kiran DO #### VD25, B12FOL, FEBC, PTHNCA #### [facility] [address] [place], [place] [phone] Alarm Service Technician: Grzegorz Tijerina MD Thyroid Stim. Horm.on 2021 Thyroid Stim. Horm. 4.25 uIU/mL Normal 0.30-5.00 [facility] Comment on above: Performed By: #### A VITB1, NERI ATKINSON #### [facility] [address] [place] [address] Alarm Service Technician: Shahid Damon MD #### LIPR, TSH, MG, CP, CDP #### [facility] [address] [place], [place] [phone] Alarm Service Technician: Michelet Kiran DO #### VD25, B12FOL, FEBC, PTHNCA #### [facility] [address] [place], [place] [phone] Alarm Service Technician: Grzegorz Tijerina MD Coding Summaryon 09-01-2021 Coding Summary [employer]Base 64 RvolfxfgMIx3yWu+PGhlYWQ+P V1QVHPnD64wsHTcqU2VZ5oTJB 2HIXNIAODZVF3CIZ4yoFI1QYy lI9LwaxEc EeyjbTBfUA15TLw6KSO5kXxuA UsnpG6udDPhV6d9TkBbSY89xA 36OCaeYXXyQpF3TbOkqsdjoAR y E9mrGeRmpFGlQwp+PHRhYmxlI HdpZHRoPScxMDAlJyBzdHlsZT 8eHt0rKCSyWFEizErwzIDaGvV j y7oaKIDvSMskBQ1fwHnkN3Tei SS0HOVuo9g7Fo91iUX+PHRkIH J0dAudGVqym623DhSwc2mwMFQ 3 bYVzKTrdSUR4X85lo9I1LUHaG YKlRSM5lYH7rU2gyDsiajnjA2 ExmMKbZlI0VHB9cEKtdV2suZk n pbsylJ1dAwh+O27JFO7GGRVTH O9SAij0N1KvRoixtZR+PC90YW LsQD74mUEtiRRle4xvfAk0BeS w ZFWuPGB4yVczWZtui8AmFLYzD 67doVEyj2B6SXKkuMybzISbHg JjdCR2uL1kTCtuspwej6dmeie n Sbwqd2ofet30eB91Q15nHQxaM MLhPCA5QUQhKFEjaIilde2dzK 9wIi8+GIxcp8khw8ipnXs4WyC w VMGolvNopSkhSEA6k5DxZq03R 5AxsGaib8KhGpt2mf79zMHif1 F0sKF8FOkxSZHehU2pOPraBwI 6 KYJqAtLigI38uCIeWZxyYm7zm FelqSrfQR3rJFOrvnrkVDKkvL 4vMVPagYFplMkrEC9jCSQchkg m j602OsZtANG5EPWoxOGcB9Yjk K4pKgOfUJRrJGJhK7HilOSqRU mkU502RJjdFuX4LLAjknDfZ3M s IKCegXdwXuZ2j7F0Nu0Gl7Zqj wqsGGX0VCjkZDXwZzR3FySsGg N8M0UdVyj8WUFepPgpZC4dA4Q h ZRXakivgziszpNQ9NUIvRWDlr S99yKRzMPmqLr8nx5D9u201VI KyAZGnpM37Cu4edUgfBXMzaVV U mH2cahmtj7yizukhZaYuWUVvF Wh6NOe8DQGylDapUwZuBLW8Up S2AOF4aAAgzI6vxKbgzfiqjF3 w Oyc+E14ypH1xYDI2TGI9kfsuP WMyjlCyUK24FM18A8LxEvbtbH FibGU+YNFwudCetWroEX0zHxN j u7wkq3SsIJgoL6ZjQNIiMFzfR gt9YFIsLBI9eDZ0gR0dJPUyJZ fdf8T4kVZ9G1OaajIwhi5ik4w s GHYuKQmvP78laHRcn0G7EKPxe CI7JORqyQxrVlAquJ64Hvm+PG AurZrty1ZyZpgph8qwp6rwmDe 9 BeTkZRGfhtGiwYzkZIA1v3PoF s78E62kSFslSQBlTXEcBEGzCS FhsBiyjt2ezY6bIz1+PGNvbCB 3 cIL8lN2qRTZfNwV1UPzoF107F kPtmXWoBcvou9kjr0qokQh8Ya GzSLYmijIfhHalGMZ1y6StFl9 8 Q17hCAdjPOCcCDPzUKJwAHOod Qklkt7qoY4iRl9+YY1au5ixqm 45jZ86lLZ+RKSgUNT2iWthURh w SGYewF0dRSczBuG9QHNlVePqr P78nOPrQPvgSq8drEkmhEygZT 6kTDNptcopf090QfXxp4diSMM w zOAuQZczHSB0U15kt7Z1AYWxL YTwHUT4rME8rZ4dfFvysgtwhG GwgMihttEkmKahBHszWHltF51 6 IHRvcDsnPlBhdGllbnQgTmFtZ Wb8O7XpMyt1VEEblNanHF0vxE YuWDslVk8okDhhjUkkGE8rXAE p dfhkv935KgXjl9unJAMjbCKsR MtaBJV2R56ro2P6CRDxLOIuWH U7gIG5cX7rpZbhnqfcaTLaqGb g fqNdmSelBNphLStmY148LGQmr VexYaZvbdDiTQXaeAO0VE37SH 31aXKlx2T3hIR0R2EgRMHxifx t gvmgaTA9ENRyFCVjkT27Kp5ms HgbRs7mNPHsOAQ2ZMKjlASvB7 NrzE0dVpCgYZKgUTNbQ1KybGD t HCtsT892SDrtVmD2DCBpagRzC 7TaBLYhmWzaIwI8e3J4Xi4ZC4 E2RM61AX69hYBod2R6qVJ4M4Y h NQVuqewuiopmfUB0YHBhPLYup N21Jz2cvZzdGs6rKGApTWI8QY RxkRTdT8XhoF1zCrIqVOWdAHH w S1GbsOQkKFhoV440OSncSmE1F TRdosZvK5MhMCZkyZojVsL4r5 W7Mc3ULSt7IX28VU51iCVkj0X 5 yIC6Q6FpPLYurjrpcetbpGT7K NRmJNGwyP27Ra8nlCroPp5jIU WaWFF9XXGghXTkN9HyaR8pYtW j SDCuTIFuQ0PwbPMkAEdzV659H HnkQgO5PBFoqgNqQ1UiQZTaoH qwLoO9m7M2Kr4SNZHyVF06JFJ 5 nJR2NH41NJ48V2RlDpcftSWzw +PHRhYmxlIHdpZHRoPScxMD MeWyWghTlfLQ2gTd9tUFCzZMS v yBofzTGwMdVoy5mnNYNsSRakW X0ilLftF1EvdLZ5LUQyj7m3Tk 88E01mY0YmmCU+EYEbmNS2pCU 0 mY6iYcUeTcD3NImsM250UpBqc YXbOoocr3npn7yonXp0ZmG2GU EgsgShyRbwWLX1p9OpQq07E82 s IHdpZHRoPSIxNSUiIHZhbGlnb o6feC3bSf3+FOFqiXG6oMV1fN 5iZpQwVsH5XAnfV397CfXmkRX v Mkiun2bmt8zpyYp1YzQxOMAar oSegCptTBV1k7BgMu74E2BsgH gpg9McYcu0ee66wSJde4V7iKB 9 Z2PsMXRdoqnafYLmvNdmYH3mN CXbfjcfRDButN6xMIRxH9k7Oc YhPwP8GImxL4FngoJ1GOImdAO g MRpmGXA7R61jk0S1FFDqPTIlS RD9oJF8sO5laGppunjxrNXygP iterJoqTxpOIptRLbpE121AJY v bEzcJUTshE6bHAMrfKWjoCglJ P9nEPTzhgfuWw1DWRaWY13dMG WPPtPUX5XnRDovsBG+PHRkIHN 0 wOkqMZstBWWdwB9cEXDzF6y7Q iAqQfN9ZBhjI5FmRVFvcepsKl 93jV1mVuFwZxV9UVrxT6ZgddM 6 QHVmkNGkGRakGHA5Y81lq1F8T DQmJCTpVAJ6pEL5kX5kwVwdgm ogbGVmdDsgdmVydGljYWwtYWx p M938EOHiyOypPrO2IlL1HpR9C WS5W4TvMsk1DDZlcJjrFJ1kdY CkAAjjEu8eaKaspChyCM4pQMA p oxvkKLRibV9dJJAzhNBupTuzM B2oZDKbudeiw006JvQyJYF3LW JazUUiN5QfaJ9wBvAyQAJeKME w N2IkmUJbZItpS500NKlpQwB0E WXcnuEhJ9DoAZNfgLonRlK3r5 X9Bo80UOROSDQiacgxfAC+PHR k OYV9oPakUAcsBLGfvK6pLDBbU 4h3HdWzCoU3YQxeF5TsHQMjtz hfSj08yS1iElUbVwE5YQvlO9G v bdL5RFGokCNgLUdzZQO5K58gr 7O2KYDcGTBdUDZ4rOC2lS3dxB lnbjogbGVmdDsgdmVydGljYWw t KJufX856CJSumQkxTpNKUJGOV TwvdGQ+GZBaNZM0hNbaYWlgXJ LdxI5wROEzB4v1KtZcIwH8PZm u J8WhWICgidxgZm56wA7tFaCwQ yD8HShjK1OiwiB0AOKvhTMhOX lwSDP3P29xy1G4HZTgKMJcLVY 7 zPC3zM3roEorsuhyfTTfmCrtb jJuaCiqKYfuKZipY035LFTccU siTx9AXA38PF86X7VjIjhmwYW i bGU+PHRhYmxlIHdpZHRoPScxM ZWgVjFfvPokLE4xYg2zJXPtFI GhbAonzANuXhYor5hbBXSuLWk g QP9mkByvU8JneJW5QHVoz4n2B a98O59lH0QegLO+PRSyfLU2jN Q4eC8nRrGoSzX6PRffX443WiI v wQBbHifhc1eoj8krpAp4KsVjR HBczfZaaJerLFS5t6TtMd19C5 9sIHdpZHRoPSIyMCUiIHZhbGl n wt5qiR5fGi4+ORXkxKN2bKN7z Q7tMvWaZcQ5GNrrR021ItAjdE TzDcuxS09jO9GnuSD+PHRyPjx 0 CLYkwXjnTE7itIRoFNfmEr9hK AJ3DvGiZyZdRKcmU2HtQWMbmc rfjmlweTX9TTWpXQLwpI40Zj9 u hJtgOr6zQQJyLBU5RBAjzVJaV 4LhfX6sVmKvDQEbQUEzB6WnwR MsMZnbA203YDjdBjH5ZQBrmcQ p U6ZiEZViwGckKmY7n3F3Dm3Mc XohqHFnKQ4oZcHaRKb9B5TeGm j2EFLuyEpqGW3mwCEeGYhoMp2 y xCxdaCuiFS7jYXBjbyfpt231A aOyx6udRMMitKIfIPqwJFA7N3 6op2M8HQAkPTQdBGE4jXG4tR2 h bGlnbjogbGVmdDsgdmVydGljY IsaNMsiY100JEEdcXntYnTXUc g7Y4ZqNpg9PPXmjIvdVI4dcJZ k NHhvZj2olBpetMosAL1wUYNas cifw968YgCjo4hwFHVrvBOaEG jmZDQ5L34ik2M6LRUjDJRkRWV 7 nRZ9hB0clBpcxdokuYJlsWpqa kImaDfkOGatQWymK915RTQfnR rtZo2IEbl9N2TkQsl2CDAqkPp s PJ5sqSGvLRvpSt8pnRxipKmuY H2rKAJiwumtl839VhUly2gqWE YamYMuTSvcNDD4P47ii5P1KPU w NCShFCE6qDZ7sL6dkFnftjbap GVmdDsgdmVydGljYWwtYWxpZ2 46IHRvcDsnPlBheWVyOjwvdGQ + RP12cs35P0GxYehoZyl8NNWfG VT6hMQ6jB6fWXHbQLwcb2H5lP V1N2TnvmDqyp2iq3imTVCaIZt g Y29 (more content not included)... [facility] Provider Orderson 08-31-2021 Provider Orders [id number] FF [facility] K (Potassium)on 06-18-2021 Potassium [Moles/Vol] 3.3 mmol/L Low 3.7-5.3 [facility] Comment on above: Performed By: #### A DEMETRIO SHAH AZN #### [facility] [address] [place] [address] [id number] Alarm Service Technician: Shahid Damon MD #### LIPR, TSH, MG, CP, CDP #### [facility] [address] [facility] [place] [address] Alarm Service Technician: Michelet Kiran DO #### VD25, B12FOL, FEBC, PTHNCA #### [facility] [address] [place] [address] Alarm Service Technician: Grzegorz Tijerina MD PotassiumOrdered By: Piper sibley on 06-18-2021 Interpretation and review of laboratory results Abnormal [facility] [employer] Phone: Potassium [Moles/Vol] 3.3 mmol/L Low 3.7 - 5.3 mmol/L [facility] [employer] Phone: [facility] Phone: Provider Ord[place] 05-29-2021 Provider Orders [id number]#1.00OTGTI FF Normal [facility] Vitamin B1on 04-12-2021 Vitamin B1 155 nmol/L Normal 70-180 [facility] Comment on above: Result Comment: (NOT E) INTERPRETIVE INFORMATION: Vitamin B1, Whole Blood This assay measures the concentration of thiamine diphosphate (TDP), the primary active form of vitamin B1. Approximately 90 percent of vitamin B1 present in whole blood is TDP. Thiamine and thiamine monophosphate, which comprise the remaining 10 percent, are not measured. This test was developed and its performance characteristics determined by [facility]. It has not been cleared or approved by the [place] Food and Drug Administration. This test was performed in a CLIA certified laboratory and is intended for clinical purposes. Performed By: [facility] [address] [place] [address] [employer]: Edie Alas MD Performed By: #### A VITB1DEMETRIO AZN #### [facility] [address] [place] [address] Alarm Service Technician: Shahid Damon MD #### LIPR, TSH, MG, CP, CDP #### [facility] [address] [facility] [place] [address] Alarm Service Technician: Michelet Kiran DO #### VD25, B12FOL, FEBC, PTHNCA #### [address] [address] Alarm Service Technician: Grzegorz Tijerina MD Vitamin Aon 04-09-2021 Interpretation Normal Normal [facility] Comment on above: Result Comment: (NOT E) This test was developed and its performance characteristics determined by [facility]. It has not been cleared or approved by the [place] Food and Drug Administration. This test was performed in a CLIA certified laboratory and is intended for clinical purposes. Performed By: [facility] [address] [place] [address] [employer]: Edie Alas MD Performed By: #### A VITB1, FRANCESCA ATKINSONN #### [address] [address] Alarm Service Technician: Shahid Damon MD #### LIPR, TSH, MG, CP, CDP #### [facility] [address] [place] [address] Alarm Service Technician: Michelet Kiran DO #### VD25, B12FOL, FEBC, PTHNCA #### [address] [address] Alarm Service Technician: Grzegorz Tijerina MD Retinol (Vitamin A) 0.54 mg/L Normal 0.30-1.20 [facility] Comment on above: Performed By: #### A VITB1, DEMETRIO, AZN #### [facility] [address] [place] [address] Alarm Service Technician: Shahid Damon MD #### LIPR, TSH, MG, CP, CDP #### [facility] [address] [place] [address] Alarm Service Technician: Michelet Kiran DO #### VD25, B12FOL, FEBC, PTHNCA #### [address] [id number] Alarm Service Technician: Grzegorz Tijerina MD Retinyl Palmitate <0.02 Normal 0.00-0.10 [facility] Comment on above: Performed By: #### A VITB1, DEMETRIO AZN #### [facility] [address] [place] [address] Alarm Service Technician: Shahid Damon MD #### LIPR, TSH, MG, CP, CDP #### [facility] [address] [place] [address] Alarm Service Technician: Michelet Kiran DO #### VD25, B12FOL, FEBC, PTHNCA #### [facility] [address] [place], [place] [id number] Alarm Service Technician: Grzegorz Tijerina MD Zinc, Serumon 04-09-2021 Zinc, Serum 75.8 ug/dL Normal 60.0-120.0 [facility] Comment on above: Result Comment: (NOT E) INTERPRETIVE INFORMATION: Zinc, Serum or Plasma Elevated results may be due to skin or collection-related contamination, including the use of a noncertified metal-free collection/transport tube. If contamination concerns exist due to elevated levels of serum/plasma zinc, confirmation with a second specimen collected in a certified metal-free tube is recommended. Circulating zinc concentrations are dependent on albumin status and are depressed with malnutrition. Zinc may also be lowered with infection, inflammation, stress, oral contraceptives, and . Zinc may be elevated with zinc supplementation or fasting. Elevated zinc concentrations may interfere with copper absorption. This test was developed and its performance characteristics determined by [facility]. It has not been cleared or approved by the [place] Food and Drug Administration. This test was performed in a CLIA certified laboratory and is intended for clinical purposes. Performed By: [facility] [address] [place] [address] [employer] P[employer]izer: Edie Alas MD Performed By: #### A VITB1, JUNOTAS, AZN #### [facility] [address] [place] [address] Alarm Service Technician: Shahid Damon MD #### LIPR, TSH, MG, CP, CDP #### [facility] [address] [place] [address] Alarm Service Technician: Michelet Kiran DO #### VD25, B12FOL, FEBC, PTHNCA #### [address] [place] [place] [address] Alarm Service Technician: Grzegorz Tijerina MD B12/Folate Panelon 1 Cobalamin (Vitamin B12) [Mass/Vol] 679 pg/mL Normal 232-1245 [facility] Comment on above: Performed By: #### A VITB1DEMETRIO AZN #### [facility] [address] [place], [place] [id number] Alarm Service Technician: Shahid Damon MD #### LIPR, TSH, MG, CP, CDP #### [facility] [place] [address] Alarm Service Technician: Michelet Kiran DO #### VD25, B12FOL, FEBC, PTHNCA #### [address] [address] Alarm Service Technician: Grzegorz Tijerina MD Folic Acid 18.3 ng/mL Normal >4.8 [facility] Comment on above: Performed By: #### A VITB1DEMETRIO AZN #### [facility] [address] [place], [place] [id number] Alarm Service Technician: Shahid Damon MD #### LIPR, TSH, MG, CP, CDP #### [facility] [address] [place] [address] Alarm Service Technician: Michelet Kiran DO #### VD25, B12FOL, FEBC, PTHNCA #### [address] [place] [address] Alarm Service Technician: Grzegorz Tijerina MD CBC Auto DifferentialOrdered By: Piper Turpin on 04-06-2021 Absolute Eos # 0.30 [employer] [facility] Work Phone: Absolute Immature Granulocyte NOT REPORTED [employer] Work Phone: Absolute Lymph # 1.30 [email or web address] Work Phone: Absolute Anasco # 0.40 [email or web address] Work Phone: Basophils (Bld) [#/Vol] 0.10 10*3/uL [employer] Work Phone: Basophils/100 WBC (Bld) 1 % 0 - 2 % [employer] Work Phone: Differential Type NOT REPORTED [employer] Work Phone: Eosinophils/100 WBC (Bld) 5 % High 0 - 4 % [employer] Work Phone: Hematocrit (Bld) [Volume fraction] 42.2 % 36 - 46 % [employer] Work Phone: Hemoglobin.gastroint estinal spec 1 Ql (Stl) 13.9 g/dL 12.0 - 16.0 g/dL [employer] Phone: Immature Granulocytes NOT REPORTED 0 % [employer] Work Phone: Interpretation and review of laboratory results Abnormal [employer] Phone: Lymphocytes/100 WBC (Bld) 21 % Low 24 - 44 % [employer] Work Phone: MCH (RBC) [Entitic mass] 27.6 pg 26 - 34 pg [employer] Work Phone: MCHC (RBC) [Mass/Vol] 33.0 g/dL 31 - 37 g/dL [employer] Phone: MCV (RBC) [Entitic vol] 83.7 fL 80 - 100 fL [employer] Phone: Monocytes/100 WBC (Bld) 7 % 1 - 7 % [employer] Work Phone: NRBC Automated NOT REPORTED per 100 WBC [employer] Work Phone: Platelet distribution width (Bld) [Ratio] 14.8 % 11.5 - 14.9 % [employer] Phone: Platelet Estimate NOT REPORTED [employer] Phone: Platelet mean volume (Bld) [Entitic vol] 9.1 fL 6.0 - 12.0 fL [employer] Phone: Platelets (Bld) [#/Vol] 183 10*3/uL [employer] Phone: RBC (Bld) [#/Vol] 5.05 10*6/uL 4.0 - 5.2 m/uL [employer] Phone: RBC (Bld) [#/Vol] NOT REPORTED [employer] Phone: Segmented neutrophils/100 WBC (Bld) 66 % 36 - 66 % [employer] Work Phone: Segs [employer] Work Phone: WBC (Bld) [#/Vol] 6.4 10*3/uL [employer] Phone: WBC (Bld) [#/Vol] NOT REPORTED [facility]: [employer] Work Phone: CBC with Diffon 04-06-2021 Abs. Basophil 0.10 k/uL Normal 0.0-0.2 [facility] Comment on above: Performed By: #### DEMETRIO MAHONEY AZN #### [facility] [address] [place] [address] Alarm Service Technician: Shahid Damon MD #### LIPR, TSH, MG, CP, CDP #### [facility] [address] [place] [address] Alarm Service Technician: Michelet Kiran DO #### VD25, B12FOL, FEBC, PTHNCA #### [address] [address] Alarm Service Technician: Grzegorz Tijerina MD Abs.Neutrophil (Seg) 4.10 k/uL Normal 1.3-9.1 [facility] Comment on above: Performed By: #### A DEMETRIO SHAH AZN #### [facility] [address] [place], [place] [id number] Alarm Service Technician: Shahid Damon MD #### LIPShanel, TSH, MG, CP, CDP #### [facility] [address] [place] [address] Alarm Service Technician: Michelet Kiran DO #### HERBERTH, FIDEL, FEBC, PTHNCA #### [place] [address] Alarm Service Technician: Grzegorz Tijerina MD Basophils/100 WBC (Bld) 1 % Normal 0-2 [facility] Comment on above: Performed By: #### A DEMETRIO SHAH AZN #### [facility] [address] [place], [place] [id number] Alarm Service Technician: Shahid Damon MD #### LIPShanel, TSH, MG, CP, CDP #### [facility] [address] [place] [address] Alarm Service Technician: Michelet Kiran DO #### VD25, B12FOL, FEBC, PTHNCA #### [place] [address] Alarm Service Technician: Grzegorz Tijerina MD Eosinophils (Bld) [#/Vol] 0.30 10*3/uL Normal 0.0-0.4 [facility] Comment on above: Performed By: #### A DEMETRIO SHAH AZN #### [facility] [address] [place] [address] Alarm Service Technician: Shahid Damon MD #### LIPR, TSH, MG, CP, CDP #### [facility] [address] [place] [address] Alarm Service Technician: Michelet Kiran DO #### VD25, B12FOL, FEBC, PTHNCA #### [address] [id number] Alarm Service Technician: Grzegorz Tijerina MD Eosinophils/100 WBC (Bld) 5 % High 0-4 [facility] Comment on above: Performed By: #### A DEMETRIO SHAH AZN #### [facility] [address] [place] [address] Alarm Service Technician: Shahid Damon MD #### LIPR, TSH, MG, CP, CDP #### [facility] [address] [place] [address] Alarm Service Technician: Michelet Kiran DO #### HERBERTH, ShukriFOKane, FEBC, PTHNCA #### [address] [address] Alarm Service Technician: Grzegorz Tijerina MD Erythrocyte distribution width (RBC) [Ratio] 14.8 % Normal 11.5-14.9 [facility] Comment on above: Performed By: #### A DEMETRIO SHAH AZN #### [facility] [address] [place] [address] Alarm Service Technician: Shahid Damon MD #### LIPR, TSH, MG, CP, CDP #### [facility] [address] [place] [address] Alarm Service Technician: Michelet Kiran DO #### VD25, B12FOL, FEBC, PTHNCA #### [address] [place] [address] Alarm Service Technician: Grzegorz Tijerina MD Hematocrit (Bld) [Volume fraction] 42.2 % Normal 36-46 [facility] Comment on above: Performed By: #### A VITB1, AVITAS, AZN #### [facility] [address] [place] [address] Alarm Service Technician: Shahid Damon MD #### LIPR, TSH, MG, CP, CDP #### [facility] [address] [place] [address] Alarm Service Technician: Michelet Kiran DO #### VD25, B12FOL, FEBC, PTHNCA #### [address] [address] Alarm Service Technician: Grzegorz Tijerina MD Hemoglobin (Bld) [Mass/Vol] 13.9 g/dL Normal 12.0-16.0 [facility] Comment on above: Performed By: #### A VITB1, JUNOTAS, AZN #### [facility] [address] [place], [place] [id number] Alarm Service Technician: Shahid Damon MD #### LIPR, TSH, MG, CP, CDP #### [facility] [place] [address] Alarm Service Technician: Michelet Kiran DO #### VD25, B12FOL, FEBC, PTHNCA #### [facility] [address] [place] [address] Alarm Service Technician: Grzegorz Tijerina MD Lymphocytes (Bld) [#/Vol] 1.30 10*3/uL Normal 1.0-4.8 [facility] Comment on above: Performed By: #### A VITB1, JUNOTAS, AZN #### [facility] [address] [place] [address] Alarm Service Technician: Shahid Damon MD #### LIPR, TSH, MG, CP, CDP #### [facility] [address] [facility] [place] [address] Alarm Service Technician: Michelet Kiran DO #### VD25, B12FOL, FEBC, PTHNCA #### [facility] [address] [place] [address] Alarm Service Technician: Grzgeorz Tijerina MD Lymphocytes/100 WBC (Bld) 21 % Low 24-44 [facility] Comment on above: Performed By: #### A VITB1, JUNOTAS, AZN #### [facility] [address] [place], [place] [id number] Alarm Service Technician: Shahid Damon MD #### LIPR, TSH, MG, CP, CDP #### [facility] [address] [place] [address] Alarm Service Technician: Michelet Kiran DO #### VD25, B12FOL, FEBC, PTHNCA #### [facility] [address] [place] [address] Alarm Service Technician: Grzegorz Tijerina MD MCH (RBC) [Entitic mass] 27.6 pg Normal 26-34 [facility] Comment on above: Performed By: #### A VITB1, JUNOTAS, AZN #### [facility] [address] [place], [place] [id number] Alarm Service Technician: Shahid Damon MD #### LIPR, TSH, MG, CP, CDP #### [facility] [address] [place] [address] Alarm Service Technician: Michelet Kiran DO #### VD25, B12FOL, FEBC, PTHNCA #### [facility] [address] [place] [address] Alarm Service Technician: Grzegorz Tijerina MD MCHC (RBC) [Mass/Vol] 33.0 g/dL Normal 31-37 [facility] Comment on above: Performed By: #### A VITDEMETRIO St AZN #### [facility] [address] [place], [place] [id number] Alarm Service Technician: Shahid Damon MD #### LIPR, TSH, MG, CP, CDP #### [facility] [address] [place] [address] Alarm Service Technician: Michelet Kiran DO #### VD25, B12FOL, FEBC, PTHNCA #### [address] [id number] Alarm Service Technician: Grzegorz Tijerina MD MCV (RBC) [Entitic vol] 83.7 fL Normal 80-100 [facility] Comment on above: Performed By: #### A DEMETRIO SHAH AZN #### [facility] [address] [place], [place] [id number] Alarm Service Technician: Shahid Damon MD #### LIPR, TSH, MG, CP, CDP #### [facility] [address] [place] [address] Alarm Service Technician: Michelet Kiran DO #### VD25, B12FOL, FEBC, PTHNCA #### [address] [id number] Alarm Service Technician: Grzegorz Tijerina MD Monocytes (Bld) [#/Vol] 0.40 10*3/uL Normal 0.1-1.3 [facility] Comment on above: Performed By: #### A DEMETRIO SHAH AZN #### [facility] [address] [place], [place] [id number] Alarm Service Technician: Shahid Damon MD #### LIPR, TSH, MG, CP, CDP #### [facility] [address] [place] [address] Alarm Service Technician: Michelet Kiran DO #### VD25, B12FOL, FEBC, PTHNCA #### [address] [address] Alarm Service Technician: Grzegorz Tijerina MD Monocytes/100 WBC (Bld) 7 % Normal 1-7 [facility] Comment on above: Performed By: #### A VITDEMETRIO St AZN #### [facility] [address] [place] [address] Alarm Service Technician: Shahid Damon MD #### LIPR, TSH, MG, CP, CDP #### [facility] [address] [place] [address] Alarm Service Technician: Michelet Kiran DO #### VD25, B12FOL, FEBC, PTHNCA #### [address] [address] Alarm Service Technician: Grzegorz Tijerina MD Neutrophil (Seg) 66 % Normal 36-66 [facility] Comment on above: Performed By: #### A DEMETRIO SHAH AZN #### [facility] [address] [place], [place] [id number] Alarm Service Technician: Shahid Damon MD #### LIPR, TSH, MG, CP, CDP #### [facility] [place] [address] Alarm Service Technician: Michelet Kiran DO #### VD25, B12FOL, FEBC, PTHNCA #### [address] [address] Alarm Service Technician: Grzegorz Tijerina MD Platelet mean volume (Bld) [Entitic vol] 9.1 fL Normal 6.0-12.0 [facility] Comment on above: Performed By: #### A VITDEMETRIO St AZN #### [facility] [address] [place] [address] Alarm Service Technician: Shahid Damon MD #### LIPR, TSH, MG, CP, CDP #### [facility] [place] [address] Alarm Service Technician: Michelet Kiran DO #### VD25, B12FOL, FEBC, PTHNCA #### [address] [address] Alarm Service Technician: Grzegorz Tijerina MD Platelets (Bld) [#/Vol] 183 10*3/uL Normal 150-450 [facility] Comment on above: Performed By: #### A DEMETRIO SHAH AZN #### [facility] [address] [place] [address] Alarm Service Technician: Shahid Damon MD #### LIPR, TSH, MG, CP, CDP #### [facility] [address] [place] [address] Alarm Service Technician: Michelet Kiran DO #### VD25, B12FOL, FEBC, PTHNCA #### [address] [address] Alarm Service Technician: Grzegorz Tijerina MD RBC (Bld) [#/Vol] 5.05 10*6/uL Normal 4.0-5.2 [facility] Comment on above: Performed By: #### A DEMETRIO SHAH AZN #### [facility] [address] [place] [address] Alarm Service Technician: Shahid Damon MD #### LIPR, TSH, MG, CP, CDP #### [facility] [address] [place] [address] Alarm Service Technician: Michelet Kiran DO #### VD25, B12FOL, FEBC, PTHNCA #### [address] [address] Alarm Service Technician: Grzegorz Tijerina MD WBC (Bld) [#/Vol] 6.4 10*3/uL Normal 3.5-11.0 [facility] Comment on above: Performed By: #### A VITB1, JOSES, AZN #### [facility] [address] [place] [address] Alarm Service Technician: Shahid Damon MD #### LIPR, TSH, MG, CP, CDP #### [facility] [address] [place] [address] Alarm Service Technician: Michelet Kiran DO #### VD25, B12FOL, FEBC, PTHNCA #### [address] [address] Alarm Service Technician: Grzegorz Tijerina MD Abs.Imm.Granulocyte NOT REPORTED Normal 0.00-0.30 [facility] Comment on above: Performed By: #### A VITB1, JOSES, AZN #### [facility] [address] [place] [address] Alarm Service Technician: Shahid Damon MD #### LIPR, TSH, MG, CP, CDP #### [facility] [address] [place] [address] Alarm Service Technician: Michelet Kiran DO #### VD25, B12FOL, FEBC, PTHNCA #### [address] [address] Alarm Service Technician: Grzegorz Tijerina MD Auto Diff Performed NOT REPORTED Normal [facility] Comment on above: Performed By: #### A VITB1, JUNOTAS, AZN #### [facility] [address] [place] [address] Alarm Service Technician: Shahid Damon MD #### LIPR, TSH, MG, CP, CDP #### [facility] [address] [place] [address] Alarm Service Technician: Michelet Kiran DO #### VD25, B12FOL, FEBC, PTHNCA #### [address] [address] Alarm Service Technician: Grzegorz Tijerina MD Immature Granulocyte NOT REPORTED Normal 0 [facility] Comment on above: Performed By: #### A DEMETRIO SHAH AZN #### [facility] [address] [place] [address] Alarm Service Technician: Shahid Damon MD #### LIPR, TSH, MG, CP, CDP #### [facility] [address] [place] [address] Alarm Service Technician: Michelet Kiran DO #### VD25, B12FOL, FEBC, PTHNCA #### [address] [address] Alarm Service Technician: Grzegorz Tijerina MD NRBC Automated NOT REPORTED Normal [facility] Comment on above: Performed By: #### A DEMETRIO SHAH AZN #### [facility] [address] [place] [address] Alarm Service Technician: Shahid Damon MD #### LIPR, TSH, MG, CP, CDP #### [facility] [address] [place] [address] Alarm Service Technician: Michelet Kiran DO #### VD25, B12FOL, FEBC, PTHNCA #### [address] [address] Alarm Service Technician: Grzegorz Tijerina MD Platelet Estimate NOT REPORTED Normal [facility] Comment on above: Performed By: #### A DEMETRIO SHAH, FRANCESCAN #### [facility] [address] [place] [address] Alarm Service Technician: Shahid Damon MD #### LIPR, TSH, MG, CP, CDP #### [facility] [address] [facility] [place] [address] Alarm Service Technician: Michelet Kiran DO #### VD25, B12FOL, FEBC, PTHNCA #### [address] [place] [address] Alarm Service Technician: Grzegorz Tijerina MD RBC morphology finding Nom (Bld) NOT REPORTED Normal [facility] Comment on above: Performed By: #### A VITB1, AVITAS, AZN #### [facility] [address] [place], [place] [id number] Alarm Service Technician: Shahid Damon MD #### LIPR, TSH, MG, CP, CDP #### [facility] [place] [address] Alarm Service Technician: Michelet Kiran DO #### VD25, B12FOL, FEBC, PTHNCA #### [facility] [address] [place] [address] Alarm Service Technician: Grzegorz Tijerina MD WBC Morphology NOT REPORTED Normal [facility] Comment on above: Performed By: #### A VITB1, AVITAS, AZN #### [facility] [address] [place], [place] [id number] Alarm Service Technician: Shahid Damon MD #### LIPR, TSH, MG, CP, CDP #### [facility] [address] [place] [address] Alarm Service Technician: Michelet Kiran DO #### VD25, B12FOL, FEBC, PTHNCA #### [facility] [place] [address] Alarm Service Technician: Grzegorz Tijerina MD Comp Metabolic Profon 2020 (cont.) Normal [facility] Comment on above: Result Comment: Aver age GFR for 60-69 years old: 85 mL/min/1.73sq m Chronic Kidney Disease: <60 mL/min/1.73sq m Kidney failure: <15 mL/min/1.73sq m eGFR calculated using average adult body mass. Additional eGFR calculator available at: [email or web address] Performed By: #### A DEMETRIO SHAH AZN #### [facility] [address] [place] [address] Alarm Service Technician: Shahid Damon MD #### LIPR, TSH, MG, CP, CDP #### [facility] [address] [place] [address] Alarm Service Technician: Michelet Kiran DO #### VD25, B12FOL, FEBC, PTHNCA #### [address] [id number] Alarm Service Technician: Grzegorz Tijerina MD Albumin [Mass/Vol] 4.4 g/dL Normal 3.5-5.2 [facility] Comment on above: Performed By: #### A DEMETRIO SHAH AZN #### [facility] [address] [place], [place] [id number] Alarm Service Technician: Shahid Damon MD #### LIPShanel, TSH, MG, CP, CDP #### [facility] [address] [place] [address] Alarm Service Technician: Michelet Kiran DO #### VD25, B12FOL, FEBC, PTHNCA #### [address] [id number] Alarm Service Technician: Grzegorz Tijerina MD Alkaline Phos 110 U/L High 35-104 [facility] Comment on above: Performed By: #### A VITDEMETRIO St AZN #### [facility] [address] [place], [place] [id number] Alarm Service Technician: Shahid Damon MD #### LIPR, TSH, MG, CP, CDP #### [facility] [address] [place] [address] Alarm Service Technician: Michelet Kiran DO #### VD25, B12FOL, FEBC, PTHNCA #### [address] [address] Alarm Service Technician: Grzegorz Tijerina MD ALT [Catalytic activity/Vol] 20 U/L Normal 5-33 [facility] Comment on above: Performed By: #### A DEMETRIO SHAH AZN #### [facility] [address] [place], [place] [id number] Alarm Service Technician: Shahid Damon MD #### LIPR, TSH, MG, CP, CDP #### [facility] [address] [place] [address] Alarm Service Technician: Michelet Kiran DO #### VD25, B12FOL, FEBC, PTHNCA #### [address] [address] Alarm Service Technician: Grzegorz Tijerina MD Anion gap [Moles/Vol] 9 mmol/L Normal 9-17 [facility] Comment on above: Performed By: #### A DEMETRIO SHAH AZN #### [facility] [address] [place] [address] Alarm Service Technician: Shahid Damon MD #### LIPR, TSH, MG, CP, CDP #### [facility] [address] [place] [address] Alarm Service Technician: Michelet Kiran DO #### VD25, B12FOL, FEBC, PTHNCA #### [address] [id number] Alarm Service Technician: Grzegorz Tijerina MD AST [Catalytic activity/Vol] 30 U/L Normal <32 [facility] Comment on above: Performed By: #### A DEMETRIO SHAH AZN #### [facility] [address] [place] [address] Alarm Service Technician: Shahid Damon MD #### LIPR, TSH, MG, CP, CDP #### [facility] [address] [place] [address] Alarm Service Technician: Michelet Kiran DO #### VD25, B12FOL, FEBC, PTHNCA #### [address] [phone] Alarm Service Technician: Grzegorz Tijerina MD Bilirubin [Mass/Vol] 0.61 mg/dL Normal 0.3-1.2 [facility] Comment on above: Performed By: #### A DEMETRIO SHAH AZN #### [facility] [address] [place], [place] [id number] Alarm Service Technician: Shahid Damon MD #### LIPR, TSH, MG, CP, CDP #### [facility] [address] [place] [address] Alarm Service Technician: Michelet Kiran DO #### VD25, B12FOL, FEBC, PTHNCA #### [address] [phone] Alarm Service Technician: Grzegorz Tijerina MD Calcium [Mass/Vol] 9.7 mg/dL Normal 8.6-10.4 [facility] Comment on above: Performed By: #### A DEMETRIO SHAH AZN #### [facility] [address] [place], [place] [id number] Alarm Service Technician: Shahid Damon MD #### LIPR, TSH, MG, CP, CDP #### [facility] [address] [place] [address] Alarm Service Technician: Michelet iKran DO #### VD25, B12FOL, FEBC, PTHNCA #### [address] [address] Alarm Service Technician: Grzegorz Tijerina MD Chloride [Moles/Vol] 100 mmol/L Normal 98-107 [facility] Comment on above: Performed By: #### A DEMETRIO SHAH AZN #### [facility] [address] [place], [place] [id number] Alarm Service Technician: Shahid Damon MD #### LIPR, TSH, MG, CP, CDP #### [facility] [address] [place] [address] Alarm Service Technician: Michelet Kiran DO #### VD25, B12FOL, FEBC, PTHNCA #### [address] [address] Alarm Service Technician: Grzegorz Tijerina MD CO2 [Moles/Vol] 31 mmol/L Normal 20-31 [facility] Comment on above: Performed By: #### A DEMETRIO SHAH AZN #### [facility] [address] [place] [id number] Alarm Service Technician: Shahid Damon MD #### LIPR, TSH, MG, CP, CDP #### [facility] [address] [place] [address] Alarm Service Technician: Michelet Kiran DO #### VD25, B12FOL, FEBC, PTHNCA #### [address] [address] Alarm Service Technician: Grzegorz Tijerina MD Creatinine [Mass/Vol] 0.66 mg/dL Normal 0.50-0.90 [facility] Comment on above: Performed By: #### A DEMETRIO SHAH AZN #### [facility] [address] [place] [address] Alarm Service Technician: Shahid Damon MD #### LIPR, TSH, MG, CP, CDP #### [facility] [address] [place] [address] Alarm Service Technician: Michelet Kiran DO #### VD25, B12FOL, FEBC, PTHNCA #### [address] [address] Alarm Service Technician: Grzegorz Tijerina MD GFR, Amer >60 Normal >60 [facility] Comment on above: Performed By: #### A DEMETRIO SHAH AZN #### [facility] [address] [place] [address] Alarm Service Technician: Shahid Damon MD #### LIPR, TSH, MG, CP, CDP #### [facility] [address] [place] [address] Alarm Service Technician: Michelet Kiran DO #### VD25, B12FOL, FEBC, PTHNCA #### [address] [address] Alarm Service Technician: Grzegorz Tijerina MD GFR,non Amer >60 Normal >60 [facility] Comment on above: Performed By: #### A DEMETRIO SHAH AZN #### [facility] [address] [place] [address] Alarm Service Technician: Shahid Damon MD #### LIPR, TSH, MG, CP, CDP #### [facility] [place] [address] Alarm Service Technician: Michelet Kiran DO #### VD25, B12FOL, FEBC, PTHNCA #### [address] [address] Alarm Service Technician: Grzegorz Tijerina MD Glucose [Mass/Vol] 105 mg/dL High 70-99 [facility] Comment on above: Performed By: #### A DEMETRIO SHAH AZN #### [facility] [address] [place] [address] Alarm Service Technician: Shahid Damon MD #### LIPR, TSH, MG, CP, CDP #### [facility] [address] [place] [address] Alarm Service Technician: Michelet Kiran DO #### VD25, B12FOL, FEBC, PTHNCA #### [address] [phone] Alarm Service Technician: Grzegorz Tijerina MD Potassium [Moles/Vol] 3.9 mmol/L Normal 3.7-5.3 [facility] Comment on above: Performed By: #### A DEMETRIO SHAH AZN #### [facility] [address] [place], [place] [id number] Alarm Service Technician: Shahid Damon MD #### LIPR, TSH, MG, CP, CDP #### [facility] [address] [place] [address] Alarm Service Technician: Michelet Kiran DO #### VD25, B12FOL, FEBC, PTHNCA #### [address] [id number] Alarm Service Technician: Grzegorz Tijerina MD Protein [Mass/Vol] 7.7 g/dL Normal 6.4-8.3 [facility] Comment on above: Performed By: #### A DEMETRIO SHAH AZN #### [facility] [address] [place], [place] [id number] Alarm Service Technician: Shahid Damon MD #### LIPR, TSH, MG, CP, CDP #### [facility] [place] [address] Alarm Service Technician: Michelet Kiran DO #### VD25, B12FOL, FEBC, PTHNCA #### [address] [address] Alarm Service Technician: Grzegorz Tijerina MD Sodium [Moles/Vol] 140 mmol/L Normal 135-144 [facility] Comment on above: Performed By: #### A DEMETRIO SHAH AZN #### [facility] [address] [place], [place] [id number] Alarm Service Technician: Shahid Damon MD #### LIPR, TSH, MG, CP, CDP #### [facility] [address] [place] [address] Alarm Service Technician: Michelet Kiran DO #### VD25, B12FOL, FEBC, PTHNCA #### [address] [address] Alarm Service Technician: Grzegorz Tijerina MD Urea nitrogen [Mass/Vol] 11 mg/dL Normal 8-23 [facility] Comment on above: Performed By: #### A DEMETRIO SHAH AZN #### [facility] [address] [place], [place] [id number] Alarm Service Technician: Shahid Damon MD #### LIPShanel, TSH, MG, CP, CDP #### [facility] [address] [place] [address] Alarm Service Technician: Michelet Kiran DO #### VD25, B12FOL, FEBC, PTHNCA #### [address] [address] Alarm Service Technician: Grzegorz Tijerina MD Albumin/Glob Ratio NOT REPORTED Normal 1.0-2.5 [facility] Comment on above: Performed By: #### A DEMETRIO SHAH AZN #### [facility] [address] [place] [address] Alarm Service Technician: Shahid Damon MD #### LIPR, TSH, MG, CP, CDP #### [facility] [address] [place] [address] Alarm Service Technician: Michelet Kiran DO #### VD25, B12FOL, FEBC, PTHNCA #### [facility] [address] [place] [address] Alarm Service Technician: Grzegorz Tijerina MD BUN/CRE Ratio NOT REPORTED Normal 9-20 [facility] Comment on above: Performed By: #### A VITB1DEMETRIO AZN #### [facility] [address] [place] [address] Alarm Service Technician: Shahid Damon MD #### LIPR, TSH, MG, CP, CDP #### [facility] [address] [place] [address] Alarm Service Technician: Michelet Kiran DO #### VD25, B12FOL, FEBC, PTHNCA #### [facility] [address] [place] [address] Alarm Service Technician: Grzegorz Tijerina MD Staging: NOT REPORTED Normal [facility] Comment on above: Performed By: #### A VITB1DEMETRIO, AZN #### [facility] [address] [place] [address] Alarm Service Technician: Shahid Damon MD #### LIPR, TSH, MG, CP, CDP #### [facility] [place] [address] Alarm Service Technician: Michelet Kiran DO #### VD25, B12FOL, FEBC, PTHNCA #### [facility] [address] [place] [address] Alarm Service Technician: Grzegorz Tijerina MD Comprehensive Metabolic Pane lOrdered By: Piper Turpin on 04-06-2021 Albumin [Mass/Vol] 4.4 g/dL 3.5 - 5.2 g/dL [facility] Phone: Albumin/Globulin Ratio NOT REPORTED [facility] Phone: ALP (Bld) [Catalytic activity/Vol] 110 U/L High 35 - 104 U/L [facility] Phone: ALT [Catalytic activity/Vol] 20 U/L 5 - 33 U/L [employer] Phone: Anion gap [Moles/Vol] 9 mmol/L 9 - 17 mmol/L [employer] Phone: AST [Catalytic activity/Vol] 30 U/L <32 [facility] Phone: Bilirubin [Mass/Vol] 0.61 mg/dL 0.3 - 1 .2 mg/dL [facility] Phone: Calcium [Mass/Vol] 9.7 mg/dL 8.6 - 10. 4 mg/dL [facility] Phone: Chloride [Moles/Vol] 100 mmol/L 98 - 10 7 mmol/L [employer] Phone: CO2 [Moles/Vol] 31 mmol/L 20 - 31 mmol/L [employer] Phone: Creatinine [Mass/Vol] 0.66 mg/dL 0.50 - 0.90 mg/dL [facility] Phone: Free PSA/Total PSA [Mass fraction] 7.7 g/dL 6.4 - 8.3 g/dL [facility] Phone: GFR >60 >60 mL/min [employer] Phone: GFR Non- >60 >60 mL/min [facility] Phone: GFR/1.73 sq M.predicted MDRD (S/P/Bld) [Vol rate/Area] [employer] Phone: Comment on above: Average GFR for 60-6 9 years old: 85 mL/min/1.73sq m Chronic Kidney Disease: <60 mL/min/1.73sq m Kidney failure: <15 mL/min/1.73sq m eGFR calculated using average adult body mass. Additional eGFR calculator available at: [email or web address]_[email or web address] GFR/1.73 sq M.predicted MDRD (S/P/Bld) [Vol rate/Area] NOT REPORTED [employer] Phone: Glucose [Mass/Vol] 105 mg/dL High 70 - 99 mg/dL [facility] Phone: Interpretation and review of laboratory results Abnormal [employer] Phone: Potassium [Moles/Vol] 3.9 mmol/L 3.7 - 5.3 mmol/L [employer] Phone: Sodium [Moles/Vol] 140 mmol/L 135 - 144 mmol/L [employer] Phone: Urea nitrogen (BldV) [Mass/Vol] 11 mg/dL 8 - 23 mg/dL [facility] Phone: Urea nitrogen/Creatinine (Bld) [Mass ratio] NOT REPORTED [employer] Phone: Iron Binding Cap.on 04-06-20 21 % Fe Saturation 25 % Normal 20-55 [facility] Comment on above: Performed By: #### A VITB1, NERI ATKINSON #### [facility] [address] [place] [address] Alarm Service Technician: Shahid Damon MD #### LIPR, TSH, MG, CP, CDP #### [facility] [address] [place] [address] Alarm Service Technician: Michelet Kiran DO #### VD25, B12FOL, FEBC, PTHNCA #### [facility] [place] [address] Alarm Service Technician: Grzegorz Tijerina MD Iron [Mass/Vol] 70 ug/dL Normal 37-145 [facility] Comment on above: Performed By: #### A VITB1, AVITAS, AZN #### [facility] [address] [place] [address] Alarm Service Technician: Shahid Damon MD #### LIPR, TSH, MG, CP, CDP #### [facility] [address] [place] [address] Alarm Service Technician: Michelet Kiran DO #### VD25, B12FOL, FEBC, PTHNCA #### [address] [address] Alarm Service Technician: Grzegorz Tijerina MD Total Fe Binding Cap 283 ug/dL Normal 250-450 [facility] Comment on above: Performed By: #### A VITB1, AVITAS, AZN #### [facility] [address] [place] [address] Alarm Service Technician: Shahid Damon MD #### LIPR, TSH, MG, CP, CDP #### [facility] [address] [place] [address] Alarm Service Technician: Michelet Kiran DO #### VD25, B12FOL, FEBC, PTHNCA #### [facility] [address] [place] [address] Alarm Service Technician: Grzegorz Tijerina MD Unbound Fe Bind Cap 213 ug/dL Normal 112-347 [facility] Comment on above: Performed By: #### A VITB1, AVITAS, AZN #### [facility] [address] [place] [address] Alarm Service Technician: Shahid Damon MD #### LIPR, TSH, MG, CP, CDP #### [facility] [address] [place] [address] Alarm Service Technician: Michelet Kiran DO #### VD25, B12FOL, FEBC, PTHNCA #### [facility] [address] [place], [place] [id number] Alarm Service Technician: Grzegorz Tijerina MD Iron and TIBCOrdered By: Judy Turpin on 04-06-2021 Iron [Mass/Vol] 70 ug/dL 37 - 145 ug/dL [employer] Work Phone: Iron Saturation 25 % 20 - 55 % [facility] Work Phone: TIBC 283 ug/dL 250 - 450 ug/dL [employer] Work Phone: UIBC 213 ug/dL 112 - 347 ug/dL [employer] Work Phone: Lipid PanelOrdered By: Piper Turpin on 04-06-2021 Cholesterol [Mass/Vol] 165 mg/dL <200 [facility] Phone: Comment on above: Cholesterol Guidelines: <200 Desirable 200-240 Borderline >240 Undesirable Cholesterol in HDL [Mass/Vol] 67 mg/dL >40 [employer] Phone: Comment on above: HDL Guidelines: <40 Undesirable 40-59 Borderline >59 Desirable Cholesterol in LDL [Mass/Vol] 81 mg/dL 0 - 130 mg/dL [employer] Phone: Comment on above: LDL Guidelines: <100 Desirable 100-129 Near to/above Desirable 130-159 Borderline >159 Undesirable Direct (measured) LDL and calculated LDL are not interchangeable tests. Cholesterol in VLDL [Mass/Vol] NOT REPORTED 1 - 30 mg/dL [facility] Phone: Cholesterol.total/Ch olesterol in HDL [Mass ratio] 2.5 {ratio} <5 [employer] Work Phone: Triglyceride [Mass/Vol] 83 mg/dL <150 [facility] Work Phone: Comment on above: Triglyceride Guidelines: <150 Desirable 150-199 Borderline 200-499 High >499 Very high Based on AHA Guidelines for fasting triglyceride, June 2012. Lipid Profileon 04-06-2021 Cholesterol [Mass/Vol] 165 mg/dL Normal <200 [facility] Comment on above: Result Comment: Cholesterol Guidelines: <200 Desirable 200-240 Borderline >240 Undesirable Performed By: #### A DEMETRIO SHAH AZN #### [facility] [address] [place] [address] Alarm Service Technician: Shahid Damon MD #### LIPR, TSH, MG, CP, CDP #### [facility] [address] [place], [place] [id number] Alarm Service Technician: Michelet Kiran DO #### VD25, B12FOL, FEBC, PTHNCA #### [facility] [address] [place] [id number] Alarm Service Technician: Grzegorz Tijerina MD Cholesterol in HDL [Mass/Vol] 67 mg/dL Normal >40 [facility] Comment on above: Result Comment: HDL Guidelines: <40 Undesirable 40-59 Borderline >59 Desirable Performed By: #### A VITAlma Rosa, DEMETRIO, AZN #### [facility] [address] [place] [address] Alarm Service Technician: Shahid Damon MD #### LIPR, TSH, MG, CP, CDP #### [facility] [address] [place] [address] Alarm Service Technician: Michelet Kiran DO #### VD25, B12FOL, FEBC, PTHNCA #### [facility] [employer] [address] [place] [phone] Alarm Service Technician: Grzegorz Tijerina MD Cholesterol in LDL [Mass/Vol] 81 mg/dL Normal 0-130 [facility] Comment on above: Result Comment: LDL Guidelines: <100 Desirable 100-129 Near to/above Desirable 130-159 Borderline >159 Undesirable Direct (measured) LDL and calculated LDL are not interchangeable tests. Performed By: #### A DEMETRIO SHAH AZN #### [facility] [address] [place] [address] Alarm Service Technician: Shahid Damon MD #### LIPR, TSH, MG, CP, CDP #### [facility] [place] [address] Alarm Service Technician: Michelet Kiran DO #### VD25, B12FOL, FEBC, PTHNCA #### [address] [phone] Alarm Service Technician: Grzegorz Tijerina MD Cholesterol.total/Ch olesterol in HDL [Mass ratio] 2.5 {ratio} Normal <5 [facility] Comment on above: Performed By: #### A DEMETRIO SHAH AZN #### [facility] [address] [place] [address] Alarm Service Technician: Shahid Damon MD #### LIPR, TSH, MG, CP, CDP #### [facility] [address] [place] [address] Alarm Service Technician: Michelet Kiran DO #### VD25, B12FOL, FEBC, PTHNCA #### [address] [id number] Alarm Service Technician: Grzegorz Tijerina MD Triglyceride [Mass/Vol] 83 mg/dL Normal <150 [facility] Comment on above: Result Comment: Triglyceride Guidelines: <150 Desirable 150-199 Borderline 200-499 High >499 Very high Based on AHA Guidelines for fasting triglyceride, June 2012. Performed By: #### A DEMETRIO SHAH AZN #### [facility] [address] [place] [address] Alarm Service Technician: Shahid Damon MD #### LIPR, TSH, MG, CP, CDP #### [facility] [address] [facility] [place] [address] Alarm Service Technician: Michelet Kiran DO #### VD25, B12FOL, FEBC, PTHNCA #### [facility] [place] [address] Alarm Service Technician: Grzegorz Tijerina MD Cholesterol,VLDL NOT REPORTED Normal 1-30 [facility] Comment on above: Performed By: #### A VITB1, AVITAS, AZN #### [facility] [address] [place], [place] [id number] Alarm Service Technician: Shahid Damon MD #### LIPR, TSH, MG, CP, CDP #### [facility] [address] [place] [address] Alarm Service Technician: Michelet Kiran DO #### VD25, B12FOL, FEBC, PTHNCA #### [address] [address] Alarm Service Technician: Grzegorz Tijerina MD Magnesiumon 04-06-2021 Magnesium [Mass/Vol] 1.9 mg/dL Normal 1.6-2.6 [facility] Comment on above: Performed By: #### A VITB1, DEMETRIO, AZN #### [facility] [address] [place] [address] Alarm Service Technician: Shahid Damon MD #### LIPR, TSH, MG, CP, CDP #### [facility] [address] [place] [address] Alarm Service Technician: Michelet Kiran DO #### VD25, B12FOL, FEBC, PTHNCA #### [facility] [place], [place] [phone] Alarm Service Technician: Grzegorz Tijerina MD MagnesiumOrdered By: Piper sibley on 04-06-2021 Magnesium [Mass/Vol] 1.9 mg/dL 1.6 - 2 .6 mg/dL [facility] Phone: No Panel InformationOrdered By: Piper Turpin on 04-06-2021 [facility] Phone: spotdock Phone: PTH, Intacton 04-06-2021 PTH, Intact 52.17 pg/mL Normal 15.0-65.0 [facility] Comment on above: Result Comment: SAMP LES FROM PATIENTS ROUTINELY RECEIVING HIGH DOSE BIOTIN THERAPY MAY SHOW FALSELY DEPRESSED RESULTS. ADDITIONAL INFORMATION MAY BE REQUIRED FOR DIAGNOSIS. Performed By: #### A VITB1, NERI ATKINSON #### [facility] [address] [place] [address] Alarm Service Technician: Shahid Damon MD #### LIPR, TSH, MG, CP, CDP #### [facility] [address] [place], [place] [id number] Alarm Service Technician: Michelet Kiran DO #### VD25, B12FOL, FEBC, PTHNCA #### [facility] [employer] [address] [place], [place] [phone] Alarm Service Technician: Grzgeorz Tijerina MD PTH, IntactOrdered By: Piper Turpin on 04-06-2021 Pth Intact 52.17 pg/mL 15.0 - 65.0 pg/mL [facility] [employer] Phone: Comment on above: SAMPLES FROM PATIENT S ROUTINELY RECEIVING HIGH DOSE BIOTIN THERAPY MAY SHOW FALSELY DEPRESSED RESULTS. ADDITIONAL INFORMATION MAY BE REQUIRED FOR DIAGNOSIS. [facility]dock Phone: TSH without ReflexOrdered By : Piper Turpin on 04-06-2021 TSH Qn 2.63 m[IU]/L [facility] Phone: Thyroid Stim. Horm.on 2020 TSH Qn 2.63 m[IU]/L Normal 0.30-5.00 [facility] Comment on above: Performed By: #### A VITB1, JUNOTAS, AZN #### [facility] [address] [place] [address] Alarm Service Technician: Shahid Damon MD #### LIPR, TSH, MG, CP, CDP #### [facility] [address] [place] [address] Alarm Service Technician: Michelet Kiran DO #### VD25, B12FOL, FEBC, PTHNCA #### [facility] [address] [place] [address] Alarm Service Technician: Grzegorz Tijerina MD Vitamin B12 & FolateOrdered By: Piper Turpin on 04-06-2021 Cobalamin (Vitamin B12) [Mass/Vol] 679 pg/mL 232 - 1245 pg/mL [facility]dock Phone: Folate 18.3 ng/mL >4.8 spotdock Phone: spotdock Phone: Vitamin D 25 HydroxyOrdered By: Piper Turpin on 04-06-2021 Vit D, 25-Hydroxy 30.9 ng/mL 30.0 - 100 .0 ng/mL [employer] Phone: Comment on above: Reference Range: Vitamin D status Range Deficiency <20 ng/mL Mild Deficiency 20-30 ng/mL Sufficiency 30-100 ng/mL Toxicity >100 ng/mL Vitamin D 25 OHon 04-06-2021 Vitamin D 25 OH 30.9 ng/mL Normal 30.0-100.0 [facility] Comment on above: Result Comment: Reference Range: Vitamin D status Range Deficiency <20 ng/mL Mild Deficiency 20-30 ng/mL Sufficiency 30-100 ng/mL Toxicity >100 ng/mL Performed By: #### A VITB1, AVITAS, AZN #### [facility] [address] [place] [address] Alarm Service Technician: Shahid Damon MD #### LIPR, TSH, MG, CP, CDP #### [facility] [address] [place] [address] Alarm Service Technician: Michelet Kiran DO #### VD25, B12FOL, FEBC, PTHNCA #### [facility] [address] [place] [address] Alarm Service Technician: Grzegorz Tijerina MD CBC Auto Differentialon 11-0 Basophils (Bld) [#/Vol] 0.10 10*3/uL [place] Basophils/100 WBC (Bld) 1 % 0 - 2 % [place] Differential Type NOT REPORTED [place] Eosinophils (Bld) [#/Vol] 0.30 10*3/uL [place] Eosinophils/100 WBC (Bld) 5 % High 0 - 4 % [place] Erythrocyte distribution width (RBC) [Ratio] 17.5 % High 11.5 - 14.9 % [place] Hematocrit (Bld) [Volume fraction] 42.5 % 36 - 46 % [place] Hemoglobin (Bld) [Mass/Vol] 14.5 g/dL 12 - 16 g/dL [place] Interpretation and review of laboratory results Abnormal [place] Lymphocytes (Bld) [#/Vol] 1.20 10*3/uL [place] Lymphocytes/100 WBC (Bld) 23 % Low 24 - 44 % [place] MCH (RBC) [Entitic mass] 28.1 pg 26 - 34 pg [place] MCHC (RBC) [Mass/Vol] 34.1 g/dL 31 - 37 g/dL [place] MCV (RBC) [Entitic vol] 82.3 fL 80 - 100 fL [place] Monocytes (Bld) [#/Vol] 0.60 10*3/uL [place] Monocytes/100 WBC (Bld) 11 % High 1 - 7 % [place] Platelet mean volume (Bld) [Entitic vol] 9.1 fL 6 - 12 fL [place] Platelets (Bld) [#/Vol] 227 10*3/uL [place] Platelets (Bld) [#/Vol] NOT REPORTED [place] RBC (Bld) [#/Vol] 5.16 10*6/uL 4 - 5.2 m/uL [place] RBC morphology finding Nom (Bld) NOT REPORTED [place] Segmented neutrophils/100 WBC (Bld) 60 % 36 - 66 % [place] Segs Absolute 3.10 [place] WBC (Bld) [#/Vol] 5.2 10*3/uL [place] WBC (Bld) [#/Vol] NOT REPORTED per 100 WBC [place] WBC Morphology NOT REPORTED [place] Comprehensive Metabolic Pane hortencia 08-04-2020 Albumin [Mass/Vol] 3.8 g/dL 3.5 - 5.2 g/dL [place] Albumin/Globulin [Mass ratio] NOT REPORTED [place] ALP [Catalytic activity/Vol] 87 U/L 35 - 104 U/L [place] ALT [Catalytic activity/Vol] 16 U/L 5 - 33 U/L [place] Anion gap [Moles/Vol] 10 mmol/L 9 - 17 mmol/L [place] AST [Catalytic activity/Vol] 30 U/L <32 [place] Bilirubin Ql (U) 0.44 mg/dL 0.3 - 1.2 mg/dL [place] Bun/Cre Ratio NOT REPORTED [place] Calcium [Mass/Vol] 9.6 mg/dL 8.6 - 10. 4 mg/dL [place] Chloride [Moles/Vol] 98 mmol/L 98 - 10 7 mmol/L [place] CO2 [Moles/Vol] 29 mmol/L 20 - 31 mmol/L [place] Creatinine [Mass/Vol] 0.46 mg/dL Low 0.5 - 0.9 mg/dL [place] GFR >60 >60 mL/min [place] GFR Non- >60 >60 mL/min [place] GFR/1.73 sq M predicted among non-blacks MDRD (S/P/Bld) [Vol rate/Area] [place] Comment on above: Average GFR for 60-6 9 years old: 85 mL/min/1.73sq m Chronic Kidney Disease: <60 mL/min/1.73sq m Kidney failure: <15 mL/min/1.73sq m eGFR calculated using average adult body mass. Additional eGFR calculator available at: http://www.[employer]/multiple_crcl_2012.htm GFR/1.73 sq M predicted among non-blacks MDRD (S/P/Bld) [Vol rate/Area] NOT REPORTED [place] Glucose [Mass/Vol] 122 mg/dL High 70 - 99 mg/dL [place] Interpretation and review of laboratory results Abnormal [place] Potassium [Moles/Vol] 3.1 mmol/L Low 3.7 - 5.3 mmol/L [place] Protein [Mass/Vol] 7.3 g/dL 6.4 - 8.3 g/dL [place] Sodium [Moles/Vol] 137 mmol/L 135 - 144 mmol/L [place] Urea nitrogen [Mass/Vol] 4 mg/dL Low 8 - 23 mg/dL [place] Ferritinon 08-04-2020 Ferritin [Mass/Vol] 293 ug/L High 13 - 150 ug/L [place] Hemoglobin A1Con 08-04-2020 Glucose [Mass/Vol] 111 mg/dL [place] Comment on above: The ADA and AACC rec ommend providing the estimated average glucose result to permit better patient understanding of their HBA1c result. HbA1c (Bld) [Mass fraction] 5.5 % 4 - 6 % [place] Iron and TIBCon 08-04-2020 Iron [Mass/Vol] 53 ug/dL 37 - 145 ug/dL [place] Iron Saturation 32 % 20 - 55 % [place] TIBC 167 ug/dL Low 250 - 450 ug/dL [place] UIBC 114 ug/dL 112 - 347 ug/dL [place] Magnesiumon 08-04-2020 Magnesium [Mass/Vol] 1.8 mg/dL 1.6 - 2 .6 mg/dL [place] Otheron 08-04-2020 Interpretation and review of laboratory results Abnormal [place] Immature granulocytes (Bld) [#/Vol] NOT REPORTED 0 % [place] PTH, Intacton 08-04-2020 Pth Intact 61.07 pg/mL 15 - 65 pg/mL [place] Comment on above: SAMPLES FROM PATIENT S ROUTINELY RECEIVING HIGH DOSE BIOTIN THERAPY MAY SHOW FALSELY DEPRESSED RESULTS. ADDITIONAL INFORMATION MAY BE REQUIRED FOR DIAGNOSIS. T4, Freeon 08-04-2020 Thyroxine, Free 1.63 ng/dL 0.93 - 1.7 ng/dL [place] TSH without Reflexon 020 TSH Qn 0.34 m[IU]/L [place] Vitamin B12on 08-04-2020 Cobalamin (Vitamin B12) [Mass/Vol] 1153 pg/mL 232 - 1245 pg/mL [place] Vitamin D 25 Hydroxyon 08-04 Vit D, 25-Hydroxy 35.2 ng/mL 30 - 100 ng/mL [place] Comment on above: Reference Range: Vitamin D status Range Deficiency <20 ng/mL Mild Deficiency 20-30 ng/mL Sufficiency 30-100 ng/mL Toxicity >100 ng/mL Basic Metabolic Panel w/ Ref ermelinda to MGon 05-31-2020 Anion gap [Moles/Vol] 12 mmol/L 9 - 17 mmol/L [place] Bun/Cre Ratio NOT REPORTED [facility] [place] Calcium [Mass/Vol] 8.6 mg/dL 8.6 - 10. 4 mg/dL [place] Chloride [Moles/Vol] 99 mmol/L 98 - 10 7 mmol/L [place] CO2 [Moles/Vol] 23 mmol/L 20 - 31 mmol/L [place] Creatinine [Mass/Vol] 0.46 mg/dL Low 0.5 - 0.9 mg/dL [place] GFR >60 >60 mL/min [place] GFR Non- >60 >60 mL/min [place] GFR/1.73 sq M predicted among non-blacks MDRD (S/P/Bld) [Vol rate/Area] NOT REPORTED [place] GFR/1.73 sq M predicted among non-blacks MDRD (S/P/Bld) [Vol rate/Area] [place] Comment on above: Average GFR for 60-6 9 years old: 85 mL/min/1.73sq m Chronic Kidney Disease: <60 mL/min/1.73sq m Kidney failure: <15 mL/min/1.73sq m eGFR calculated using average adult body mass. Additional eGFR calculator available at: http://www.[employer]/multiple_crcl_2012.htm Glucose [Mass/Vol] 103 mg/dL High 70 - 99 mg/dL [place] Interpretation and review of laboratory results Abnormal [place] Potassium [Moles/Vol] 3.2 mmol/L Low 3.7 - 5.3 mmol/L [place] Sodium [Moles/Vol] 134 mmol/L Low 135 - 144 mmol/L [place] Urea nitrogen [Mass/Vol] 5 mg/dL Low 8 - 23 mg/dL [place] CBCon 05-31-2020 Erythrocyte distribution width (RBC) [Ratio] 13.5 % 11.8 - 14.4 % [place] Hematocrit (Bld) [Volume fraction] 44.8 % 36.3 - 47.1 % [place] Hemoglobin (Bld) [Mass/Vol] 13.2 g/dL 11.9 - 15.1 g/dL [place] MCH (RBC) [Entitic mass] 27.4 pg 25.2 - 33.5 pg [place] MCHC (RBC) [Mass/Vol] 29.5 g/dL 28.4 - 34.8 g/dL [place] MCV (RBC) [Entitic vol] 93.1 fL 82.6 - 102.9 fL [place] Platelet mean volume (Bld) [Entitic vol] 12.2 fL 8.1 - 13.5 fL [place] Platelets (Bld) [#/Vol] 153 10*3/uL [place] RBC (Bld) [#/Vol] 4.81 10*6/uL 3.95 - 5.1 1 m/uL [place] WBC (Bld) [#/Vol] 0.0 10*3/uL 0.0 per 10 0 WBC [place] WBC (Bld) [#/Vol] 7.4 10*3/uL [place] Magnesiumon 05-31-2020 Magnesium [Mass/Vol] 2.0 mg/dL 1.6 - 2 .6 mg/dL [place] Protime-INRon 05-31-2020 INR Coag (PPP) [Relative time] 1.2 {INR} [place] Comment on above: Therapeutic Range: Moderate Anticoagulant Intensity: INR = 2.0-3.0 High Anticoagulant Intensity: INR = 2.5-3.5 Interpretation and review of laboratory results Abnormal [place] PT Coag (PPP) [Time] 12.8 s High [place] APTTon 05-30-2020 aPTT Coag (Bld) [Time] s Critically high [place] Comment on above: IV Heparin Therapy Range: 48.6-77.8 TEST CONFIRMED Interpretation and review of laboratory results Abnormal [place] aPTT Coag (Bld) [Time] s Critically high [place] Comment on above: TEST CONFIRMED IV Heparin Therapy Range: 48.6-77.8 Interpretation and review of laboratory results Abnormal [place] aPTT Coag (Bld) [Time] 25.7 s [place] Comment on above: IV Heparin Therapy Range: 48.6-77.8 BASIC METABOLIC PANELon Anion gap [Moles/Vol] 17 mmol/L 9 - 17 mmol/L [place] Bun/Cre Ratio NOT REPORTED [place] Calcium [Mass/Vol] 9.8 mg/dL 8.6 - 10. 4 mg/dL [place] Chloride [Moles/Vol] 90 mmol/L Low 98 - 10 7 mmol/L [place] CO2 [Moles/Vol] 26 mmol/L 20 - 31 mmol/L [place] Creatinine [Mass/Vol] 0.61 mg/dL 0.5 - 0.9 mg/dL [place] GFR >60 >60 mL/min [place] GFR Non- >60 >60 mL/min [place] GFR/1.73 sq M predicted among non-blacks MDRD (S/P/Bld) [Vol rate/Area] [place] Comment on above: Average GFR for 60-6 9 years old: 85 mL/min/1.73sq m Chronic Kidney Disease: <60 mL/min/1.73sq m Kidney failure: <15 mL/min/1.73sq m eGFR calculated using average adult body mass. Additional eGFR calculator available at: http://www.[employer]/multiple_crcl_2012.htm GFR/1.73 sq M predicted among non-blacks MDRD (S/P/Bld) [Vol rate/Area] NOT REPORTED [place] Glucose [Mass/Vol] 131 mg/dL High 70 - 99 mg/dL [place] Interpretation and review of laboratory results Abnormal [place] Potassium [Moles/Vol] 2.8 mmol/L Critically low 3.7 - 5.3 mmol/L [place] Sodium [Moles/Vol] 133 mmol/L Low 135 - 144 mmol/L [place] Urea nitrogen [Mass/Vol] 10 mg/dL 8 - 23 mg/dL [place] Brain Natriuretic Peptideon 05-30-2020 Natriuretic peptide B (Bld) [Mass/Vol] 51 pg/mL <300 [place] Comment on above: Pro-BNP results rob ot be compared to BNP results. Natriuretic peptide B (Bld) [Mass/Vol] Pro-BNP Reference Range: [place] Comment on above: Rule Out: <300 [place] Zone: Age <50 300-450 Age 50-75 300-900 Age >75 300-1800 Usually represents mild to moderate HF but other cardiopulmonary causes cannot be ruled out. Rule In: Age <50 >450 Age 50-75 >900 Age >75 >1800 CBCon 05-30-2020 Erythrocyte distribution width (RBC) [Ratio] 13.2 % 11.8 - 14.4 % [place] Hematocrit (Bld) [Volume fraction] 39.6 % 36.3 - 47.1 % [place] Hemoglobin (Bld) [Mass/Vol] 12.7 g/dL 11.9 - 15.1 g/dL [place] MCH (RBC) [Entitic mass] 27.3 pg 25.2 - 33.5 pg [place] MCHC (RBC) [Mass/Vol] 32.1 g/dL 28.4 - 34.8 g/dL [place] MCV (RBC) [Entitic vol] 85.0 fL 82.6 - 102.9 fL [place] Platelet mean volume (Bld) [Entitic vol] 12.2 fL 8.1 - 13.5 fL [place] Platelets (Bld) [#/Vol] 156 10*3/uL [place] RBC (Bld) [#/Vol] 4.66 10*6/uL 3.95 - 5.1 1 m/uL [place] WBC (Bld) [#/Vol] 0.0 10*3/uL 0.0 per 10 0 WBC [place] WBC (Bld) [#/Vol] 8.6 10*3/uL [place] Erythrocyte distribution width (RBC) [Ratio] 13.2 % 11.8 - 14.4 % [place] Hematocrit (Bld) [Volume fraction] 41.3 % 36.3 - 47.1 % [place] Hemoglobin (Bld) [Mass/Vol] 13.1 g/dL 11.9 - 15.1 g/dL [place] MCH (RBC) [Entitic mass] 26.5 pg 25.2 - 33.5 pg [place] MCHC (RBC) [Mass/Vol] 31.7 g/dL 28.4 - 34.8 g/dL [place] MCV (RBC) [Entitic vol] 83.6 fL 82.6 - 102.9 fL [place] Platelet mean volume (Bld) [Entitic vol] 11.9 fL 8.1 - 13.5 fL [place] Platelets (Bld) [#/Vol] 159 10*3/uL [place] RBC (Bld) [#/Vol] 4.94 10*6/uL 3.95 - 5.1 1 m/uL [place] WBC (Bld) [#/Vol] 9.7 10*3/uL [place] WBC (Bld) [#/Vol] 0.0 10*3/uL 0.0 per 10 0 WBC [place] CBC Auto Differentialon Basophils (Bld) [#/Vol] 0.09 10*3/uL [place] Basophils/100 WBC (Bld) 1 % 0 - 2 % [place] Differential Type NOT REPORTED [place] Eosinophils (Bld) [#/Vol] 0.21 10*3/uL [place] Eosinophils/100 WBC (Bld) 2 % 1 - 4 % [place] Erythrocyte distribution width (RBC) [Ratio] 13.4 % 11.8 - 14.4 % [place] Hematocrit (Bld) [Volume fraction] 45.1 % 36.3 - 47.1 % [place] Hemoglobin (Bld) [Mass/Vol] 14.5 g/dL 11.9 - 15.1 g/dL [place] Immature granulocytes (Bld) [#/Vol] 0.03 10*3/uL [place] Immature granulocytes (Bld) [#/Vol] 0 % 0 [place] Interpretation and review of laboratory results Abnormal [place] Lymphocytes (Bld) [#/Vol] 1.54 10*3/uL [place] Lymphocytes/100 WBC (Bld) 15 % Low 24 - 43 % [place] MCH (RBC) [Entitic mass] 26.6 pg 25.2 - 33.5 pg [place] MCHC (RBC) [Mass/Vol] 32.2 g/dL 28.4 - 34.8 g/dL [place] MCV (RBC) [Entitic vol] 82.6 fL 82.6 - 102.9 fL [place] Monocytes (Bld) [#/Vol] 1.23 10*3/uL [place] Monocytes/100 WBC (Bld) 12 % 3 - 12 % [place] Platelet mean volume (Bld) [Entitic vol] 12.1 fL 8.1 - 13.5 fL [place] Platelets (Bld) [#/Vol] 207 10*3/uL [place] Platelets (Bld) [#/Vol] NOT REPORTED [place] RBC (Bld) [#/Vol] 5.46 10*6/uL High 3.95 - 5.1 1 m/uL [place] RBC morphology finding Nom (Bld) NOT REPORTED [place] Segmented neutrophils/100 WBC (Bld) 70 % High 36 - 65 % [place] Segs Absolute 6.90 [place] WBC (Bld) [#/Vol] 10.0 10*3/uL [place] WBC (Bld[place] [#/Vol] 0.0 10*3/uL 0.0 per 10 0 WBC [place] WBC Morphology NOT REPORTED [place], [place] ECHO Complete 2D W Doppler W [place] 05-30-2020 Markus, [facility] Incoming C ardio Results From Cpacs/Ge - 05/30/2020 1:50 PM EDT Transthoracic Echocardiography Report (TTE) Patient Name SHEILA FUENTES Date of Study 05/30/2020 L Date of 1955 Gender Female Age 65 year(s) Race Room Number 24 Height: 69 inch, 175.26 cm Corporate ID [id number] Weight: 218 pounds, 98.9 kg # Patient Acct [id number] BSA: 2.14 m^2 BMI: 32.19 # kg/m^2 MR # [id number] [employer] Sreedhar Granados Interpreting Physician Ron Noe Fellow Pierre Zuñiga Referring Nurse Salomon Fajardo Practitioner Interpreting Referring Physician Mary Kate EISENBERG MD Fellow Type of Study TTE procedure:2D Echocardiogram, M-Mode, Doppler, Color Doppler. Procedure Date Date: 05/30/2020 Start: 12:43 PM Study Location: [facility] Technical Quality: Adequate visualization Indications:Pulmonary embolus. History / Tech. Comments: Procedure explained to patient. HTN. Patient Status: Inpatient Height: 69 inches Weight: 218 pounds BSA: 2.14 m^2 BMI: 32.19 kg/m^2 HR: 59 bpm CONCLUSIONS Summary Left ventricle is normal in size Global left ventricular systolic function is normal Estimated ejection fraction is 55 % . Mild Leftward compression of inter-ventricular septum ( D-sign ) indicating RV pressure or volume overload. Right ventricular dilatation with reduced systolic function, suggestive of RV strain. Right atrial dilatation. Aortic valve is sclerotic but opens well. Thickened mitral valve leaflets. Trivial tricuspid regurgitation. Mild pulmonary hypertension. Estimated right ventricular systolic pressure is 42mmHg. Signature - - - - FINDINGS Left Atrium Left atrium is normal in size. Left Ventricle Left ventricle is normal in size Global left ventricular systolic function is normal Estimated ejection fraction is 55 % . Mild Leftward compression of inter-ventricular septum ( D-sign ) indicating RV pressure or volume overload. Right Atrium Right atrial dilatation. Right Ventricle Right ventricular dilatation with reduced systolic function, suggestive of RV strain. Mitral Valve Thickened mitral valve leaflets. No mitral regurgitation. Aortic Valve Aortic valve is sclerotic but opens well. No aortic insufficiency. Tricuspid Valve No obvious valvular abnormality. Trivial tricuspid regurgitation. Mild pulmonary hypertension. Estimated right ventricular systolic pressure is 42mmHg. Pulmonic Valve The pulmonic valve is normal in structure. No pulmonic insufficiency. Pericardial Effusion No significant pericardial effusion is seen. Miscellaneous Normal aortic root dimension. E/E' average = 7.0. IVC Increased diameter, but still has inspiratory variation suggesting upper normal or mildly elevated RA filling pressure (i.e. CVP) . M-mode / 2D Measurements & Calculations: LVIDd:5.1 cm(3.7 - 5.6 cm) Diastolic Volume:110 ml LVIDs:2.8 cm(2.2 - 4.0 cm) Systolic Volume:50 ml IVSd:0.8 cm(0.6 - 1.1 cm) Aortic Root:2.7 cm(2.0 - 3.7 cm) LVPWd:0.8 cm(0.6 - 1.1 cm) LA Dimension: 4.1 cm(1.9 - 4.0 cm) Fractional Shortenin.1 % LA volume/Index: 44 ml /21m^2 Calculated LVEF (%): 54.55 % LVOT:1.8 cm RVDd:4.3 cm Mitral: Aortic Valve Area (P1/2-Time): 2.86 cm^2 Peak Velocity: 1.62 m/s Peak E-Wave: 0.58 m/s Mean Velocity: 1.10 m/s Peak A-Wave: 0.53 m/s Peak Gradient: 10.5 mmHg E/A Ratio: 1.09 Mean Gradient: 6 mmHg Peak Gradient: 1.34 mmHg Mean Gradient: 1 mmHg Deceleration Time: 264 msec Area (continuity): 1.99 cm^2 P1/2t: 77 msec AV VTI: 29.3 cm Area (continuity): 2 cm^2 Mean Velocity: 0.43 m/s Tricuspid: Pulmonic: Peak TR Velocity: 2.60 m/s Peak TR Gradient: 27.04 mmHg Estimated RA Pressure: 15 mmHg Estimated PASP: 42.04 mmHg Diastology / Tissue Doppler Septal Wall E' velocity:0.07 m/s Septal Wall E/E':8.9 Lateral Wall E' velocity:0.11 m/s Lateral Wall E/E':5.2 [place], [place] Transthoracic Echocardiography Report (TTE) Patient Name SHEILA FUENTES Date of Study 05/30/2020 L Date of 1955 Gender Female Age 65 year(s) Race Room Number 24 Height: 69 inch, 175.26 cm Corporate ID [id number] Weight: 218 pounds, 98.9 kg # Patient Acct [id number] BSA: 2.14 m^2 BMI: 32.19 # kg/m^2 MR # [id number] [employer] Sreedhar Granados Interpreting Physician Ron Noe Fellow Pierre Zuñiga Referring Nurse Salomon Fajardo Practitioner Interpreting Referring Physician Mary Kate EISENBERG MD Fellow Type of Study TTE procedure:2D Echocardiogram, M-Mode, Doppler, Color Doppler. Procedure Date Date: 05/30/2020 Start: 12:43 PM Study Location: [facility] Technical Quality: Adequate visualization Indications:Pulmonary embolus. History / Tech. Comments: Procedure explained to patient. HTN. Patient Status: Inpatient Height: 69 inches Weight: 218 pounds BSA: 2.14 m^2 BMI: 32.19 kg/m^2 HR: 59 bpm CONCLUSIONS Summary Left ventricle is normal in size Global left ventricular systolic function is normal Estimated ejection fraction is 55 % . Mild Leftward compression of inter-ventricular septum ( D-sign ) indicating RV pressure or volume overload. Right ventricular dilatation with reduced systolic function, suggestive of RV strain. Right atrial dilatation. Aortic valve is sclerotic but opens well. Thickened mitral valve leaflets. Trivial tricuspid regurgitation. Mild pulmonary hypertension. Estimated right ventricular systolic pressure is 42mmHg. Signature - - - - FINDINGS Left Atrium Left atrium is normal in size. Left Ventricle Left ventricle is normal in size Global left ventricular systolic function is normal Estimated ejection fraction is 55 % . Mild Leftward compression of inter-ventricular septum ( D-sign ) indicating RV pressure or volume overload. Right Atrium Right atrial dilatation. Right Ventricle Right ventricular dilatation with reduced systolic function, suggestive of RV strain. Mitral Valve Thickened mitral valve leaflets. No mitral regurgitation. Aortic Valve Aortic valve is sclerotic but opens well. No aortic insufficiency. Tricuspid Valve No obvious valvular abnormality. Trivial tricuspid regurgitation. Mild pulmonary hypertension. Estimated right ventricular systolic pressure is 42mmHg. Pulmonic Valve The pulmonic valve is normal in structure. No pulmonic insufficiency. Pericardial Effusion No significant pericardial effusion is seen. Miscellaneous Normal aortic root dimension. E/E' average = 7.0. IVC Increased diameter, but still has inspiratory variation suggesting upper normal or mildly elevated RA filling pressure (i.e. CVP) . M-mode / 2D Measurements & Calculations: LVIDd:5.1 cm(3.7 - 5.6 cm) Diastolic Volume:110 ml LVIDs:2.8 cm(2.2 - 4.0 cm) Systolic Volume:50 ml IVSd:0.8 cm(0.6 - 1.1 cm) Aortic Root:2.7 cm(2.0 - 3.7 cm) LVPWd:0.8 cm(0.6 - 1.1 cm) LA Dimension: 4.1 cm(1.9 - 4.0 cm) Fractional Shortenin.1 % LA volume/Index: 44 ml /21m^2 Calculated LVEF (%): 54.55 % LVOT:1.8 cm RVDd:4.3 cm Mitral: Aortic Valve Area (P1/2-Time): 2.86 cm^2 Peak Velocity: 1.62 m/s Peak E-Wave: 0.58 m/s Mean Velocity: 1.10 m/s Peak A-Wave: 0.53 m/s Peak Gradient: 10.5 mmHg E/A Ratio: 1.09 Mean Gradient: 6 mmHg Peak Gradient: 1.34 mmHg Mean Gradient: 1 mmHg Deceleration Time: 264 msec Area (continuity): 1.99 cm^2 P1/2t: 77 msec AV VTI: 29.3 cm Area (continuity): 2 cm^2 Mean Velocity: 0.43 m/s Tricuspid: Pulmonic: Peak TR Velocity: 2.60 m/s Peak TR Gradient: 27.04 mmHg Estimated RA Pressure: 15 mmHg Estimated PASP: 42.04 mmHg Diastology / Tissue Doppler Septal Wall E' velocity:0.07 m/s Septal Wall E/E':8.9 Lateral Wall E' velocity:0.11 m/s Lateral Wall E/E':5.2 [place], [place] HEPATIC FUNCTION PANELon Albumin [Mass/Vol] 4.1 g/dL 3.5 - 5.2 g/dL [place], [place] Albumin/Globulin [Mass ratio] 1.1 {ratio} [place] ALP [Catalytic activity/Vol] 84 U/L 35 - 104 U/L [place] ALT [Catalytic activity/Vol] 13 U/L 5 - 33 U/L [place] AST [Catalytic activity/Vol] 21 U/L <32 [place] Bilirubin Ql (U) 1.02 mg/dL 0.3 - 1.2 mg/dL [place] Bilirubin, Indirect 0.71 mg/dL 0 - 1 mg/dL [place], [place] Bilirubin.direct [Mass/Vol] 0.31 mg/dL High <0.31 [place] Globulin (S) [Mass/Vol] NOT REPORTED 1.5 - 3.8 g/dL [place] Interpretation and review of laboratory results Abnormal [place] Protein [Mass/Vol] 7.9 g/dL 6.4 - 8.3 g/dL [place] Lactate, Sepsison 05-30-2020 Lactic Acid, Sepsis NOT REPORTED 0.5 - 1. 9 mmol/L [place] Lactic Acid, Sepsis, Whole Blood 1.2 mmol/L 0.5 - 1.9 mmol/L [place] Lactic Acid, Sepsis NOT REPORTED 0.5 - 1. 9 mmol/L [place] Lactic Acid, Sepsis, Whole Blood 1.6 mmol/L 0.5 - 1.9 mmol/L [place] Otheron 05-30-2020 EXAMINATION: CTA OF THE CHEST; CT OF THE ABDOMEN AND PELVIS WITH CONTRAST 05/30/2020 2:48 am TECHNIQUE: CTA of the chest was performed after the administration of intravenous contrast. Multiplanar reformatted images are provided for review. MIP images are provided for review. Dose modulation, iterative reconstruction, and/or weight based adjustment of the mA/kV was utilized to reduce the radiation dose to as low as reasonably achievable.; CT of the abdomen and pelvis was performed with the administration of intravenous contrast. Multiplanar reformatted images are provided for review. Dose modulation, iterative reconstruction, and/or weight based adjustment of the mA/kV was utilized to reduce the radiation dose to as low as reasonably achievable. COMPARISON: None 05/30/2020 HISTORY: ORDERING SYSTEM PROVIDED HISTORY: r/o PE TECHNOLOGIST PROVIDED HISTORY: r/o PE Reason for Exam: rt side abd pain since yesterday recent rouen gastric surgery; ORDERING SYSTEM PROVIDED HISTORY: Recent rou-en-Y. Epigastric abd pain TECHNOLOGIST PROVIDED HISTORY: Recent rou-en-Y. Epigastric abd pain Reason for Exam: rt side abd pain since yesterday recent rouen gastric surgery FINDINGS: Chest: Pulmonary Arteries: Pulmonary arteries are adequately opacified for evaluation. Extensive filling defects in right and left segmental and subsegmental pulmonary arteries. Main pulmonary artery is normal in caliber. Mediastinum: No evidence of mediastinal lymphadenopathy. The heart and pericardium demonstrate no acute abnormality. No evidence of right heart strain. There is no acute abnormality of the thoracic aorta. Lungs/pleura: Focal pleural based ground-glass opacity right upper lobe posterior segment in this setting consistent with pulmonary infarct. Bibasilar atelectatic changes. No focal consolidation or pulmonary edema. No evidence of pleural effusion or pneumothorax. Soft Tissues/Bones: No acute bone or soft tissue abnormality. Abdomen/Pelvis: Organs: The visualized portions of the liver, gallbladder, spleen, pancreas and adrenal glands demonstrate no acute abnormality. No biliary ductal dilatation. Multiple small hepatic cysts noted, benign finding. The kidneys appear normal in size and demonstrate symmetric enhancement. No focal renal mass. No hydronephrosis. No perinephric stranding. left kidney lower pole exophytic 5.5 cm simple cyst. GI/Bowel: Gastric and small bowel sutures appear intact. No evidence of bowel obstruction. No bowel wall thickening. Normal appendix. Pelvis: The urinary bladder appears unremarkable. The pelvic organs demonstrate no acute abnormality. Posterior uterine wall is myoma, is 4.5 cm. Peritoneum/Retroperitoneu m: The abdominal aorta is normal in caliber. No gross lymphadenopathy no fluid collection. No free air. Bones/Soft Tissues: No acute findings. [facility], [place] Extensive segmental/subsegmental bilateral pulmonary emboli. Small pulmonary infarct right upper lobe posterior segment. Gastric and small bowel sutures appear intact. Findings were discussed with ACOSTA RODRIGUEZ at 3:39 am on 05/30/2020. [facility], [place] Markus, [employer] Incoming Radiant Results From [employer] - 05/30/2020 3:43 AM EDT EXAMINATION: CTA OF THE CHEST; CT OF THE ABDOMEN AND PELVIS WITH CONTRAST 05/30/2020 2:48 am TECHNIQUE: CTA of the chest was performed after the administration of intravenous contrast. Multiplanar reformatted images are provided for review. MIP images are provided for review. Dose modulation, iterative reconstruction, and/or weight based adjustment of the mA/kV was utilized to reduce the radiation dose to as low as reasonably achievable.; CT of the abdomen and pelvis was performed with the administration of intravenous contrast. Multiplanar reformatted images are provided for review. Dose modulation, iterative reconstruction, and/or weight based adjustment of the mA/kV was utilized to reduce the radiation dose to as low as reasonably achievable. COMPARISON: None 05/30/2020 HISTORY: ORDERING SYSTEM PROVIDED HISTORY: r/o PE TECHNOLOGIST PROVIDED HISTORY: r/o PE Reason for Exam: rt side abd pain since yesterday recent rouen gastric surgery; ORDERING SYSTEM PROVIDED HISTORY: Recent rou-en-Y. Epigastric abd pain TECHNOLOGIST PROVIDED HISTORY: Recent rou-en-Y. Epigastric abd pain Reason for Exam: rt side abd pain since yesterday recent rouen gastric surgery FINDINGS: Chest: Pulmonary Arteries: Pulmonary arteries are adequately opacified for evaluation. Extensive filling defects in right and left segmental and subsegmental pulmonary arteries. Main pulmonary artery is normal in caliber. Mediastinum: No evidence of mediastinal lymphadenopathy. The heart and pericardium demonstrate no acute abnormality. No evidence of right heart strain. There is no acute abnormality of the thoracic aorta. Lungs/pleura: Focal pleural based ground-glass opacity right upper lobe posterior segment in this setting consistent with pulmonary infarct. Bibasilar atelectatic changes. No focal consolidation or pulmonary edema. No evidence of pleural effusion or pneumothorax. Soft Tissues/Bones: No acute bone or soft tissue abnormality. Abdomen/Pelvis: Organs: The visualized portions of the liver, gallbladder, spleen, pancreas and adrenal glands demonstrate no acute abnormality. No biliary ductal dilatation. Multiple small hepatic cysts noted, benign finding. The kidneys appear normal in size and demonstrate symmetric enhancement. No focal renal mass. No hydronephrosis. No perinephric stranding. left kidney lower pole exophytic 5.5 cm simple cyst. GI/Bowel: Gastric and small bowel sutures appear intact. No evidence of bowel obstruction. No bowel wall thickening. Normal appendix. Pelvis: The urinary bladder appears unremarkable. The pelvic organs demonstrate no acute abnormality. Posterior uterine wall is myoma, is 4.5 cm. Peritoneum/Retroperitoneu m: The abdominal aorta is normal in caliber. No gross lymphadenopathy no fluid collection. No free air. Bones/Soft Tissues: No acute findings. IMPRESSION: Extensive segmental/subsegmental bilateral pulmonary emboli. Small pulmonary infarct right upper lobe posterior segment. Gastric and small bowel sutures appear intact. Findings were discussed with ACOSTA RODRIGUEZ at 3:39 am on 05/30/2020. [place] POTASSIUMon 05-30-2020 Interpretation and review of laboratory results Abnormal [place], [place] Potassium [Moles/Vol] 3.3 mmol/L Low 3.7 - 5.3 mmol/L [place] Troponinon 05-30-2020 Troponin I.cardiac [Mass/Vol] NOT REPORTED [place] Troponin T.cardiac [Mass/Vol] NOT REPORTED <0.03 ng/mL [place] Troponin, High Sensitivity 11 ng/L 0 - 14 ng/L [place] Comment on above: High Sensitivity Troponin values cannot be compared with other Troponin methodologies. Patients with high levels of Biotin oral intake (i.e >5mg/day) may have falsely decreased Troponin levels. Samples collected within 8 hours of biotin intake may require additional information for diagnosis. Troponin I.cardiac [Mass/Vol] NOT REPORTED [place] Troponin T.cardiac [Mass/Vol] NOT REPORTED <0.03 ng/mL [place] Troponin, High Sensitivity 11 ng/L 0 - 14 ng/L [place] Comment on above: High Sensitivity Troponin values cannot be compared with other Troponin methodologies. Patients with high levels of Biotin oral intake (i.e >5mg/day) may have falsely decreased Troponin levels. Samples collected within 8 hours of biotin intake may require additional information for diagnosis. VL DUP LOWER EXTREMITY VENOU S BILATERALon 05-30-2020 [facility] Vascular Lower Extremities DVT Study Procedure Patient Name SHEILA Date of Study 05/30/2020 ALFREDO Middleton Date of 1955 Gender Female Age 65 year(s) Race Room Number 24 Corporate ID # [id number] Patient MR # [id number] [employer] Sherri Parr RVT Interpreting Physician Jonatan Webb Referring Referring Physician Nurse Practitioner Procedure Type of Study: Veins: Lower Extremities DVT Study, Venous Scan Lower Bilateral. Patient Status:ER. Technical Quality:Limited visualization. - Critical Result:Findings were reported to Dr. Burgess on 05/30/2020 at 11:17a by Sherri Parr RVT. Conclusions Summary Simultaneous real time imaging utilizing B-Mode, color doppler and spectral waveform analysis was performed on the bilateral lower extremities for venous examination of the deep and superficial systems. Findings are: Right: Acute deep venous thrombosis extending from the gastrocnemius vein into the popliteal vein. Superficial venous thrombosis identified in the small saphenous vein. Left: No evidence of deep or superficial venous thrombosis. Signature Findings: Right Impression: Left Impression: The common femoral, femoral and The common femoral, femoral, popliteal tibial veins demonstrate normal and tibial veins demonstrate normal compressibility and augmentation. compressibility and augmentation. The gastrocnemius vein to the Normal compressibility of the great popliteal veins are saphenous vein. non-compressible. Thrombus appears acute based on Unable to visualize the small B-Mode image evaluation. saphenous vein. Normal compressibility of the great saphenous vein. The small saphenous vein is non compressible. Velocities are measured in cm/s ; Diameters are measured in cm Right Lower Extremities DVT Study Measurements Right 2D Measurements + + +- + + !Location !Visualized!Compressibili ty!Thrombosis! + + +- + + !Common Femoral !Yes !Yes !None ! + + +- + + !Prox Femoral !Yes !Yes !None ! + + +- + + !Mid Femoral !Yes !Yes !None ! + + +- + + !Dist Femoral !Yes !Yes !None ! + + +- + + !Deep Femoral !Yes !Yes !None ! + + +- + + !Popliteal !Yes !No !Acute ! + + +- + + !Sapheno Femoral Junction !Yes !Yes !None ! + + +- + + !PTV !Partial !Yes !None ! + + +- + + !Peroneal !Partial !Yes !None ! + + +- + + !Gastroc !Yes !No !Acute ! + + +- + + !GSV Thigh !Yes !Yes !None ! + + +- + + !GSV Knee !Yes !Yes !None ! + + +- + + !GSV Ankle !Yes !Yes !None ! + + +- + + !SSV !Yes !No !Acute ! + + +- + + Right Doppler Measurements + -+ +------+----- + !Location !Signal !Reflux!Reflux (msec) ! + -+ +------+----- + !Common Femoral !Phasic ! ! ! + -+ +------+----- + !Prox Femoral !Phasic ! ! ! + -+ +------+----- + !Popliteal !Continuous! ! ! + -+ +------+----- + Left Lower Extremities DVT Study Measurements Left 2D Measurements + + +- + + !Location !Visualized!Compressibili ty!Thrombosis! + + +- + + !Common Femoral !Yes !Yes !None ! + + +- + + !Prox Femoral !Yes !Yes !None ! + + +- + + !Mid Femoral !Partial !Yes !None ! + + +- + + !Dist Femoral !Partial !Yes !None ! + + +- + + !Deep Femoral !No ! ! ! + + +- + + !Popliteal !Yes !Yes !None ! + + +- + + !Sapheno Femoral Junction !Yes !Yes !None ! + + +- + + !PTV !Partial !Yes !None ! + + +- + + !Peroneal !Partial !Yes !None ! + + +- + + !Gastroc !Yes !Yes !None ! + + +- + + !GSV Thigh !Yes !Yes !None ! + + +- + + !GSV Knee !Yes !Yes !None ! + + +- + + !GSV Ankle !Yes !Yes !None ! + + +- + + !SSV !No ! ! ! + + +- + + Left Doppler Measurements + ---+------+------+------- + !Location !Signal!Reflux!Reflux (msec) ! + ---+------+------+------- + !Common Femoral !Phasic! ! ! + ---+------+------+------- + !Prox Femoral !Phasic! ! ! + ---+------+------+------- + !Popliteal !Phasic! ! ! + ---+------+------+------- + [facility] [place], [place] Markus, pn Joe lorenzo Results From [facility] - 05/30/2020 11:57 AM EDT [facility] Vascular Lower Extremities DVT Study Procedure Patient Name SHEILA Date of Study 05/30/2020 ALFREDO Middleton Date of 1955 Gender Female Age 65 year(s) Race Room Number 24 Corporate ID # [id number] Patient MR # [id number] [employer] Sherri Parr RVT Interpreting Physician Jonatan Webb Referring Referring Physician Nurse Practitioner Procedure Type of Study: Veins: Lower Extremities DVT Study, Venous Scan Lower Bilateral. Patient Status:ER. Technical Quality:Limited visualization. - Critical Result:Findings were reported to Dr. Burgess on 05/30/2020 at 11:17a by Sherri Parr RVT. Conclusions Summary Simultaneous real time imaging utilizing B-Mode, color doppler and spectral waveform analysis was performed on the bilateral lower extremities for venous examination of the deep and superficial systems. Findings are: Right: Acute deep venous thrombosis extending from the gastrocnemius vein into the popliteal vein. Superficial venous thrombosis identified in the small saphenous vein. Left: No evidence of deep or superficial venous thrombosis. Signature Findings: Right Impression: Left Impression: The common femoral, femoral and The common femoral, femoral, popliteal tibial veins demonstrate normal and tibial veins demonstrate normal compressibility and augmentation. compressibility and augmentation. The gastrocnemius vein to the Normal compressibility of the great popliteal veins are saphenous vein. non-compressible. Thrombus appears acute based on Unable to visualize the small B-Mode image evaluation. saphenous vein. Normal compressibility of the great saphenous vein. The small saphenous vein is non compressible. Velocities are measured in cm/s ; Diameters are measured in cm Right Lower Extremities DVT Study Measurements Right 2D Measurements + + +- + + !Location !Visualized!Compressibili ty!Thrombosis! + + +- + + !Common Femoral !Yes !Yes !None ! + + +- + + !Prox Femoral !Yes !Yes !None ! + + +- + + !Mid Femoral !Yes !Yes !None ! + + +- + + !Dist Femoral !Yes !Yes !None ! + + +- + + !Deep Femoral !Yes !Yes !None ! + + +- + + !Popliteal !Yes !No !Acute ! + + +- + + !Sapheno Femoral Junction !Yes !Yes !None ! + + +- + + !PTV !Partial !Yes !None ! + + +- + + !Peroneal !Partial !Yes !None ! + + +- + + !Gastroc !Yes !No !Acute ! + + +- + + !GSV Thigh !Yes !Yes !None ! + + +- + + !GSV Knee !Yes !Yes !None ! + + +- + + !GSV Ankle !Yes !Yes !None ! + + +- + + !SSV !Yes !No !Acute ! + + +- + + Right Doppler Measurements + -+ +------+----- + !Location !Signal !Reflux!Reflux (msec) ! + -+ +------+----- + !Common Femoral !Phasic ! ! ! + -+ +------+----- + !Prox Femoral !Phasic ! ! ! + -+ +------+----- + !Popliteal !Continuous! ! ! + -+ +------+----- + Left Lower Extremities DVT Study Measurements Left 2D Measurements + + +- + + !Location !Visualized!Compressibili ty!Thrombosis! + + +- + + !Common Femoral !Yes !Yes !None ! + + +- + + !Prox Femoral !Yes !Yes !None ! + + +- + + !Mid Femoral !Partial !Yes !None ! + + +- + + !Dist Femoral !Partial !Yes !None ! + + +- + + !Deep Femoral !No ! ! ! + + +- + + !Popliteal !Yes !Yes !None ! + + +- + + !Sapheno Femoral Junction !Yes !Yes !None ! + + +- + + !PTV !Partial !Yes !None ! + + +- + + !Peroneal !Partial !Yes !None ! + + +- + + !Gastroc !Yes !Yes !None ! + + +- + + !GSV Thigh !Yes !Yes !None ! + + +- + + !GSV Knee !Yes !Yes !None ! + + +- + + !GSV Ankle !Yes !Yes !None ! + + +- + + !SSV !No ! ! ! + + +- + + Left Doppler Measurements + ---+------+------+------- + !Location !Signal!Reflux!Reflux (msec) ! + ---+------+------+------- + !Common Femoral !Phasic! ! ! + ---+------+------+------- + !Prox Femoral !Phasic! ! ! + ---+------+------+------- + !Popliteal !Phasic! ! ! + ---+------+------+------- + [place], [place] Basic Metabolic Panelon 08-0 Anion gap [Moles/Vol] 12 mmol/L 9 - 17 mmol/L [place], [place] Bun/Cre Ratio NOT REPORTED [place], [place] Calcium [Mass/Vol] 9.1 mg/dL 8.6 - 10. 4 mg/dL [place] Chloride [Moles/Vol] 100 mmol/L 98 - 10 7 mmol/L [place] CO2 [Moles/Vol] 28 mmol/L 20 - 31 mmol/L [place] Creatinine [Mass/Vol] 0.67 mg/dL 0.5 - 0.9 mg/dL [place] GFR >60 >60 mL/min [place], [place] GFR Non- >60 >60 mL/min [place] GFR/1.73 sq M predicted among non-blacks MDRD (S/P/Bld) [Vol rate/Area] [place], [place] Comment on above: Average GFR for 60-6 9 years old: 85 mL/min/1.73sq m Chronic Kidney Disease: <60 mL/min/1.73sq m Kidney failure: <15 mL/min/1.73sq m eGFR calculated using average adult body mass. Additional eGFR calculator available at: http://www.Linkagoal.PetSitnStay/multiple_crcl_2012.htm GFR/1.73 sq M predicted among non-blacks MDRD (S/P/Bld) [Vol rate/Area] NOT REPORTED [place] Glucose [Mass/Vol] 129 mg/dL High 70 - 99 mg/dL [place] Interpretation and review of laboratory results Abnormal [place] Potassium [Moles/Vol] 3.9 mmol/L 3.7 - 5.3 mmol/L [place] Sodium [Moles/Vol] 140 mmol/L 135 - 144 mmol/L [place] Urea nitrogen [Mass/Vol] 6 mg/dL Low 8 - 23 mg/dL [place] CBCon 04-29-2020 Erythrocyte distribution width (RBC) [Ratio] 13.2 % 11.8 - 14.4 % [place] Hematocrit (Bld) [Volume fraction] 40.7 % 36.3 - 47.1 % [place] Hemoglobin (Bld) [Mass/Vol] 12.7 g/dL 11.9 - 15.1 g/dL [place] MCH (RBC) [Entitic mass] 27.5 pg 25.2 - 33.5 pg [place] MCHC (RBC) [Mass/Vol] 31.2 g/dL 28.4 - 34.8 g/dL [place] MCV (RBC) [Entitic vol] 88.3 fL 82.6 - 102.9 fL [place] Platelet mean volume (Bld) [Entitic vol] 11.2 fL 8.1 - 13.5 fL [place] Platelets (Bld) [#/Vol] 223 10*3/uL [place] RBC (Bld) [#/Vol] 4.61 10*6/uL 3.95 - 5.1 1 m/uL [place] WBC (Bld) [#/Vol] 11.3 10*3/uL [place] WBC (Bld) [#/Vol] 0.0 10*3/uL 0.0 per 10 0 WBC [place] ESOPHAGRAMon 04-29-2020 Limited examination. No evidence for leak. [place] Markus, [facility] Incoming Radiant Results From [employer] - 04/29/2020 12:17 PM EDT EXAMINATION: SINGLE CONTRAST ESOPHAGRAM 04/29/2020 9:45 am TECHNIQUE: Single contrast water soluble esophagram was performed using 30 mL of Omnipaque 240. FLUOROSCOPY DOSE AND TYPE OR TIME AND EXPOSURES:: 1.4 minutes 22.9 Gy cm2 9 images COMPARISON: None HISTORY: ORDERING SYSTEM PROVIDED HISTORY: gastric bypass TECHNOLOGIST PROVIDED HISTORY: gastric bypass FINDINGS: Limited evaluation post bariatric surgery demonstrates normal flow of contrast from the esophagus into the stomach and into the proximal small bowel. No definite obstruction or stricture identified. There is no evidence for extraluminal contrast extension to suggest leak. IMPRESSION: Limited examination. No evidence for leak. [place] EXAMINATION: SINGLE CONTRAST ESOPHAGRAM 04/29/2020 9:45 am TECHNIQUE: Single contrast water soluble esophagram was performed using 30 mL of Omnipaque 240. FLUOROSCOPY DOSE AND TYPE OR TIME AND EXPOSURES:: 1.4 minutes 22.9 Gy cm2 9 images COMPARISON: None HISTORY: ORDERING SYSTEM PROVIDED HISTORY: gastric bypass TECHNOLOGIST PROVIDED HISTORY: gastric bypass FINDINGS: Limited evaluation post bariatric surgery demonstrates normal flow of contrast from the esophagus into the stomach and into the proximal small bowel. No definite obstruction or stricture identified. There is no evidence for extraluminal contrast extension to suggest leak. [place] XR ABDOMEN (KUB) (SINGLE AP VIEW)on 04-29-2020 Markus, [facility] Incoming Radiant Results From [employer] - 04/29/2020 2:37 PM EDT EXAMINATION: ONE SUPINE XRAY VIEW(S) OF THE ABDOMEN 04/29/2020 2:16 pm COMPARISON: Esophagram earlier today. HISTORY: ORDERING SYSTEM PROVIDED HISTORY: contrast progression TECHNOLOGIST PROVIDED HISTORY: contrast progression FINDINGS: The contrast has passed through the gastric remnant into the mid small bowel. There is no convincing evidence of contrast extravasation. Bowel gas pattern is nonspecific. Surgical drain in the left upper quadrant is noted. IMPRESSION: Interval passage of contrast through the gastric remnant into the mid small bowel. [place] Interval passage of contrast through the gastric remnant into the mid small bowel. [place] EXAMINATION: ONE SUP INE XRAY VIEW(S) OF THE ABDOMEN 04/29/2020 2:16 pm COMPARISON: Esophagram earlier today. HISTORY: ORDERING SYSTEM PROVIDED HISTORY: contrast progression TECHNOLOGIST PROVIDED HISTORY: contrast progression FINDINGS: The contrast has passed through the gastric remnant into the mid small bowel. There is no convincing evidence of contrast extravasation. Bowel gas pattern is nonspecific. Surgical drain in the left upper quadrant is noted. [place] Basic Metabolic Panelon 08-0 Anion gap [Moles/Vol] 17 mmol/L 9 - 17 mmol/L [place] Bun/Cre Ratio NOT REPORTED [place], [place] Calcium [Mass/Vol] 9.5 mg/dL 8.6 - 10. 4 mg/dL [place] Chloride [Moles/Vol] 94 mmol/L Low 98 - 10 7 mmol/L [place] CO2 [Moles/Vol] 23 mmol/L 20 - 31 mmol/L [place] Creatinine [Mass/Vol] 0.73 mg/dL 0.5 - 0.9 mg/dL [place] GFR >60 >60 mL/min [place] GFR Non- >60 >60 mL/min [place] GFR/1.73 sq M predicted among non-blacks MDRD (S/P/Bld) [Vol rate/Area] [place] Comment on above: Average GFR for 60-6 9 years old: 85 mL/min/1.73sq m Chronic Kidney Disease: <60 mL/min/1.73sq m Kidney failure: <15 mL/min/1.73sq m eGFR calculated using average adult body mass. Additional eGFR calculator available at: http://www.[employer]/multiple_crcl_2012.htm GFR/1.73 sq M predicted among non-blacks MDRD (S/P/Bld) [Vol rate/Area] NOT REPORTED [place] Glucose [Mass/Vol] 151 mg/dL High 70 - 99 mg/dL [place] Interpretation and review of laboratory results Abnormal [place] Potassium [Moles/Vol] 3.2 mmol/L Low 3.7 - 5.3 mmol/L [place] Sodium [Moles/Vol] 134 mmol/L Low 135 - 144 mmol/L [place] Urea nitrogen [Mass/Vol] 9 mg/dL 8 - 23 mg/dL [place] CBC without Diffon 0 Erythrocyte distribution width (RBC) [Ratio] 12.6 % 11.8 - 14.4 % [place] Hematocrit (Bld) [Volume fraction] 48.2 % High 36.3 - 47.1 % [place] Hemoglobin (Bld) [Mass/Vol] 15.2 g/dL High 11.9 - 15.1 g/dL [place] Interpretation and review of laboratory results Abnormal [place] MCH (RBC) [Entitic mass] 28.0 pg 25.2 - 33.5 pg [place] MCHC (RBC) [Mass/Vol] 31.5 g/dL 28.4 - 34.8 g/dL [place] MCV (RBC) [Entitic vol] 88.8 fL 82.6 - 102.9 fL [place] Platelet mean volume (Bld) [Entitic vol] 11.1 fL 8.1 - 13.5 fL [place] Platelets (Bld) [#/Vol] 224 10*3/uL [place] RBC (Bld) [#/Vol] 5.43 10*6/uL High 3.95 - 5.1 1 m/uL [place] WBC (Bld) [#/Vol] 0.0 10*3/uL 0.0 per 10 0 WBC [place] WBC (Bld) [#/Vol] 18.5 10*3/uL [place] Notification Panel, POCon Action [facility] [place] Date/Time 04/28/202006:32:00 [place] NOTIFY girma [place] READ BACK Yes [place] POTASSIUM (POC)on 04-28-2020 Interpretation and review of laboratory results Abnormal [place] Potassium [Moles/Vol] 2.8 mmol/L Critically low 3.5 - 4.5 mmol/L [place] Covid-19 Ambulatoryon 2019 SARS-CoV-2, KATIA Not Detected Not Detected [place], [place] Comment on above: (NOTE) This test was developed and its performance characteristics determined by [facility]. This test has not been FDA cleared or approved. This test has been authorized by FDA under an Emergency Use Authorization (EUA). This test is only authorized for the duration of time the declaration that circumstances exist justifying the authorization of the emergency use of in vitro diagnostic tests for detection of SARS-CoV-2 virus and/or diagnosis of COVID-19 infection under section 564(b)(1) of the Act, 21 U.S.C. 360bbb-3(b)(1), unless the authorization is terminated or revoked sooner. When diagnostic testing is negative, the possibility of a false negative result should be considered in the context of a patient's recent exposures and the presence of clinical signs and symptoms consistent with COVID-19. An individual without symptoms of COVID-19 and who is not shedding SARS-CoV-2 virus would expect to have a negative (not detected) result in this assay. Performed At: [facility] [address] [facility] [place] [id number] Linda Gutierrez MD Ph:[phone] XR CHEST STANDARD (2 VW)on 0 04-14-2020 No prior study avail able. No acute cardiopulmonary disease. Borderline heart size and prominent ascending aorta. [facility] [place] EXAMINATION: TWO XRA Y VIEWS OF THE CHEST 04/14/2020 11:03 am COMPARISON: None. HISTORY: ORDERING SYSTEM PROVIDED HISTORY: preop gastric bypass Nury En Y TECHNOLOGIST PROVIDED HISTORY: preop gastric bypass Nury En Y Reason for Exam: no chest complaints FINDINGS: Cardiac silhouette upper limits of normal in size. Mediastinal structures midline with slight calcification aortic knob and prominent ascending aorta. No localized pulmonary opacity or blunting of the costophrenic angles. Mild kyphoscoliosis thoracic spine with slight degenerative change. [place] Markus, M[facility] Incoming Radiant Results From [employer] - 04/14/2020 11:33 AM EDT EXAMINATION: TWO XRAY VIEWS OF THE CHEST 04/14/2020 11:03 am COMPARISON: None. HISTORY: ORDERING SYSTEM PROVIDED HISTORY: preop gastric bypass Nury En Y TECHNOLOGIST PROVIDED HISTORY: preop gastric bypass Nury En Y Reason for Exam: no chest complaints FINDINGS: Cardiac silhouette upper limits of normal in size. Mediastinal structures midline with slight calcification aortic knob and prominent ascending aorta. No localized pulmonary opacity or blunting of the costophrenic angles. Mild kyphoscoliosis thoracic spine with slight degenerative change. IMPRESSION: No prior study available. No acute cardiopulmonary disease. Borderline heart size and prominent ascending aorta. [place] CBC Auto Differentialon 04-26 Basophils (Bld) [#/Vol] 0.10 10*3/uL [place] Basophils/100 WBC (Bld) 1 % 0 - 2 % [place] Differential Type NOT REPORTED [place] Eosinophils (Bld) [#/Vol] 0.50 10*3/uL [place] Eosinophils/100 WBC (Bld) 6 % High 0 - 4 % [place] Erythrocyte distribution width (RBC) [Ratio] 14.7 % 11.5 - 14.9 % [place] Hematocrit (Bld) [Volume fraction] 46.4 % High 36 - 46 % [place] Hemoglobin (Bld) [Mass/Vol] 15.3 g/dL 12 - 16 g/dL [place] Interpretation and review of laboratory results Abnormal [place] Lymphocytes (Bld) [#/Vol] 1.80 10*3/uL [place] Lymphocytes/100 WBC (Bld) 20 % Low 24 - 44 % [place] MCH (RBC) [Entitic mass] 27.9 pg 26 - 34 pg [place] MCHC (RBC) [Mass/Vol] 33.0 g/dL 31 - 37 g/dL [place] MCV (RBC) [Entitic vol] 84.8 fL 80 - 100 fL [place] Monocytes (Bld) [#/Vol] 0.60 10*3/uL [place] Monocytes/100 WBC (Bld) 7 % 1 - 7 % [place] Platelet mean volume (Bld) [Entitic vol] 8.9 fL 6 - 12 fL [place] Platelets (Bld) [#/Vol] 236 10*3/uL [place] Platelets (Bld) [#/Vol] NOT REPORTED [place] RBC (Bld) [#/Vol] 5.48 10*6/uL High 4 - 5.2 m/uL [facility] [place], [place] RBC morphology finding Nom (Bld) NOT REPORTED [place] Segmented neutrophils/100 WBC (Bld) 66 % 36 - 66 % [place] Segs Absolute 5.70 [place], [place] WBC (Bld) [#/Vol] NOT REPORTED per 100 WBC [place] WBC (Bld) [#/Vol] 8.7 10*3/uL [place] WBC Morphology NOT REPORTED [place], [place] Comprehensive Metabolic Pane hortencia 05-10-2019 Albumin [Mass/Vol] 4.4 g/dL 3.5 - 5.2 g/dL [place] Albumin/Globulin [Mass ratio] NOT REPORTED [place] ALP [Catalytic activity/Vol] 84 U/L 35 - 104 U/L [place] ALT [Catalytic activity/Vol] 28 U/L 5 - 33 U/L [place] Anion gap [Moles/Vol] 14 mmol/L 9 - 17 mmol/L [place] AST [Catalytic activity/Vol] 31 U/L <32 [place] Bilirubin Ql (U) 0.41 mg/dL 0.3 - 1.2 mg/dL [place] Bun/Cre Ratio NOT REPORTED [place], [place] Calcium [Mass/Vol] 10.2 mg/dL 8.6 - 10. 4 mg/dL [place] Chloride [Moles/Vol] 101 mmol/L 98 - 10 7 mmol/L [place] CO2 [Moles/Vol] 26 mmol/L 20 - 31 mmol/L [place] Creatinine [Mass/Vol] 0.69 mg/dL 0.5 - 0.9 mg/dL [place] GFR >60 >60 mL/min [place] GFR Non- >60 >60 mL/min [place] GFR/1.73 sq M predicted among non-blacks MDRD (S/P/Bld) [Vol rate/Area] [place], [place] Comment on above: Average GFR for 60-6 9 years old: 85 mL/min/1.73sq m Chronic Kidney Disease: <60 mL/min/1.73sq m Kidney failure: <15 mL/min/1.73sq m eGFR calculated using average adult body mass. Additional eGFR calculator available at: http://www.[employer]/multiple_crcl_2012.htm GFR/1.73 sq M predicted among non-blacks MDRD (S/P/Bld) [Vol rate/Area] NOT REPORTED [place] Glucose [Mass/Vol] 108 mg/dL High 70 - 99 mg/dL [place] Potassium [Moles/Vol] 3.9 mmol/L 3.7 - 5.3 mmol/L [place] Protein [Mass/Vol] 8.5 g/dL High 6.4 - 8.3 g/dL [place] Sodium [Moles/Vol] 141 mmol/L 135 - 144 mmol/L [place] Urea nitrogen [Mass/Vol] 12 mg/dL 8 - 23 mg/dL [place] Hepatitis C Antibodyon 05-10 Hepatitis C Ab NONREACTIVE NONREACTIVE [place] Comment on above: The hepatitis C procedure used in our laboratory is a Chemiluminescent test specific for three recombinant HCV antigens. A negative anti-HCV result indicates that the antibodies to hepatitis C virus are not present at this time. Individuals with reactive anti-HCV should be considered infected and infectious until proven otherwise. Confirmation of all equivocal or reactive results is recommended by ordering HCV RNA by PCR. Lipid Panelon 05-10-2019 Cholesterol [Mass/Vol] 249 mg/dL High <200 [place], [place] Comment on above: Cholesterol Guidelines: <200 Desirable 200-240 Borderline >240 Undesirable Cholesterol in HDL [Mass/Vol] 62 mg/dL >40 [place] Comment on above: HDL Guidelines: <40 Undesirable 40-59 Borderline >59 Desirable Cholesterol in LDL [Mass/Vol] 157 mg/dL High 0 - 130 mg/dL [place] Comment on above: LDL Guidelines: <100 Desirable 100-129 Near to/above Desirable 130-159 Borderline >159 Undesirable Direct (measured) LDL and calculated LDL are not interchangeable tests. Cholesterol in VLDL [Mass/Vol] NOT REPORTED 1 - 30 mg/dL [place] Cholesterol.total/Ch olesterol in HDL [Mass ratio] 4 {ratio} <5 [place] Triglyceride [Mass/Vol] 151 mg/dL High <150 [place] Comment on above: Triglyceride Guidelines: <150 Desirable 150-199 Borderline 200-499 High >499 Very high Based on AHA Guidelines for fasting triglyceride, June 2012. Magnesiumon 05-10-2019 Magnesium [Mass/Vol] 2.0 mg/dL 1.6 - 2 .6 mg/dL [place] Otheron 05-10-2019 Interpretation and review of laboratory results Abnormal [place] Immature granulocytes (Bld) [#/Vol] NOT REPORTED [place] PTH, Intacton 05-10-2019 Pth Intact 53.8 pg/mL 15 - 65 pg/mL [place] Comment on above: SAMPLES FROM PATIENT S ROUTINELY RECEIVING HIGH DOSE BIOTIN THERAPY MAY SHOW FALSELY DEPRESSED RESULTS. ADDITIONAL INFORMATION MAY BE REQUIRED FOR DIAGNOSIS. T4, Freeon 05-10-2019 Thyroxine, Free 1.40 ng/dL 0.93 - 1.7 ng/dL [place] TSH without Reflexon 019 TSH Qn 4.52 m[IU]/L [place] Vitamin B12 & Folateon 05-10 Cobalamin (Vitamin B12) [Mass/Vol] 599 pg/mL 232 - 1245 pg/mL [place] Folate >20.0 >4.8 ng/mL [place] Vital Signs Date Time Vital Sign Value Performing Clinician Facility 12-08-2023 08:34-0400 Body height 175.26 cm DO Nancy Elizabeth Work Phone: [facility] 12-08-2023 08:34-0400 Body mass index (BMI) [Ratio] 32.8 kg/m2 DO Nancy Elizabeth Work Phone: [facility] 12-08-2023 08:34-0400 Body weight 100.69 kg DO Nancy Elizabeth Work Phone: [facility] 11-10-2023 14:25-0500 Body height 175.26 cm DO Nancy Elizabeth Work Phone: [facility] 11-10-2023 14:25-0500 Body mass index (BMI) [Ratio] 32.8 kg/m2 DO Nancy Elizabeth Work Phone: [facility] 11-10-2023 14:25-0500 Body weight 100.69 kg DO Nancy Elizabeth Work Phone: [facility] 11-08-2023 13:44-0500 Body mass index (BMI) [Ratio] 33.08 kg/m2 Cathy Hemmer PA Work Phone: [facility] 11-08-2023 13:44-0500 Body weight 101.61 kg Cathy Hemmer PA Work Phone: [facility] 11-08-2023 13:44-0500 Diastolic blood pressure 82 mm[Hg] Cathy Hemmer PA Work Phone: [facility] 11-08-2023 13:44-0500 Heart rate 76 /min Cathy Hemmer PA Work Phone: [facility] 11-08-2023 13:44-0500 Respiratory rate 16 /min Cathy Hemmer PA Work Phone: [facility] 11-08-2023 13:44-0500 SaO2% (BldA) [Mass fraction] 97 % Cathy Hemmer PA Work Phone: [facility] 11-08-2023 13:44-0500 Systolic blood pressure 118 mm[Hg] Cathy Hemmer PA Work Phone: [facility] 04-08-2022 16:05-0400 Body temperature 97.7 [degF] Wil Neves DO Work Phone: [facility] 04-08-2022 16:05-0400 Diastolic blood pressure 72 mm[Hg] Wil Neves DO Work Phone: [facility] 04-08-2022 16:05-0400 Heart rate 65 /min Wil Neves DO Work Phone: [facility] [employer] [facility] [employer] [employer] 04-08-2022 16:05-0400 Respiratory rate 16 /min Wil Neves DO Work Phone: [facility] [employer] 04-08-2022 16:05-0400 SaO2% (BldA) [Mass fraction] 100 % Wil Neves DO Work Phone: [facility] [employer] 04-08-2022 16:05-0400 Systolic blood pressure 111 mm[Hg] Wil Neves DO Work Phone: [facility] [employer] 04-07-2022 03:19-0400 Body height 172.7 cm Wil Neves DO Work Phone: [facility] [employer] 04-07-2022 03:19-0400 Body mass index (BMI) [Ratio] 26.46 kg/m2 Wil Neves DO Work Phone: [facility] [employer] 04-07-2022 03:19-0400 Body weight 78.93 kg Wil Neves DO Work Phone: [facility] [employer] 05-31-2020 12:06-0400 Body Temperature 98.2 [degF] Wil [employer] [facility] 05-31-2020 12:06-0400 BP Diastolic 62 mm[Hg] [facility] [place] 05-31-2020 12:06-0400 BP Systolic 111 mm[Hg] [facility] [place] 05-31-2020 12:06-0400 Pulse (Heart Rate) 73 /min [facility] [place] 05-31-2020 12:06-0400 Respiratory Rate 16 /min Wil [employer] [facility] 05-31-2020 11:00-0400 Pulse Oximetry 94 % [facility] [place] 05-30-2020 16:39-0400 BMI (Body Mass Index) 32.23 kg/m2 [facility] [place] 05-30-2020 16:39-0400 Body weight 99 kg Wil Neves [facility] , [place] 05-30-2020 16:39-0400 Height 175.3 cm Wil Neves [facility] , [place] 04-29-2020 17:02-0400 Body Temperature 98.29 [degF] [facility] [place] 04-29-2020 17:02-0400 BP Diastolic 50 mm[Hg] Shaniqua [facility] 04-29-2020 17:02-0400 BP Systolic 110 mm[Hg] Shaniqua [facility] 04-29-2020 17:02-0400 Pulse (Heart Rate) 86 /[facility] [place] 04-29-2020 17:02-0400 Pulse Oximetry 96 % Shaniqua [facility] 04-29-2020 17:02-0400 Respiratory Rate 16 /[facility] [place] 04-28-2020 06:12-0400 BMI (Body Mass Index) 35.15 kg/m2 [facility] [place] 04-28-2020 06:12-0400 [facility] [place] 04-28-2020 06:12-0400 Height 175.3 cm Shaniqua [facility] 05-10-2019 02:59-0400 BMI (Body Mass Index) 36.04 kg/m2 [address], [place] 05-10-2019 02:59-0400 Body weight 107.[address] , [place] 05-10-2019 02:59-0400 BP Diastolic 78 mm[Hg] [address] , [place] 05-10-2019 02:59-0400 BP Systolic 126 mm[Hg] [address] , [place] 05-10-2019 02:59-0400 Height 172.[address] , [place] 05-10-2019 02:59-0400 Pulse (Heart Rate) 63 /min [address], [place] 05-10-2019 02:59-0400 Pulse Oximetry 94 % St[facility] [place] , [place] 05-10-2019 02:59-0400 Respiratory Rate 14 /min [facility] [place] Encounters Encounter Date Encounter Type Care Provider Facility Start: 06-14-2024 End: 06-14-2024 ambulatory MD Raza Castro II Work Phone: [facility] Work Phone: Start: 06-14-2024 End: 06-14-2024 Patient encounter procedure MD Raza Castro II Work Phone: [facility] Work Phone: Start: 05-22-2024 End: 05-22-2024 ambulatory CATHY Rudolph HEMMER Not Available Start: 05-14-2024 End: 05-14-2024 ambulatory JENNIFER JEFFRIES Not Available Start: 05-08-2024 End: 05-08-2024 ambulatory CATHY Rudolph HEMMER Not Available Start: 04-24-2024 End: 04-24-2024 ambulatory CATHY Ronni HEMMER Not Available Start: 04-18-2024 End: 04-18-2024 Patient encounter procedure MD Raza Castro II Work Phone: [facility] Work Phone: Start: 04-18-2024 End: 04-18-2024 ambulatory Raza Castro II [facility] Work Phone: Start: 04-13-2024 End: 04-13-2024 ambulatory CATHY BOOGIEMER [facility] Start: 04-04-2024 End: 04-04-2024 ambulatory CATHY M HEMMER Not Available Start: 03-26-2024 End: 03-26-2024 ambulatory [facility] Work Phone: Start: 03-26-2024 End: 03-26-2024 Patient encounter procedure [facility] Work Phone: Start: 02-29-2024 End: 02-29-2024 ambulatory JENNIFER Pope JEFFRIES Not Available Start: 02-06-2024 End: 02-06-2024 ambulatory CATHY RANGEL Not Available Start: 12-08-2023 End: 12-08-2023 ambulatory DO Nancy Elizabeth Work Phone: [facility] Work Phone: Start: 12-08-2023 End: 12-08-2023 Patient encounter procedure DO Nancy Elizabeth Work Phone: [facility] Work Phone: Start: 11-16-2023 End: 11-16-2023 Patient encounter procedure DO Nancy Elizabeth Work Phone: [facility] Work Phone: Start: 11-16-2023 Non-patient / Non-visit DO Nancy Elizabeth Work Phone: [facility] Work Phone: Start: 11-10-2023 End: 11-10-2023 ambulatory DO Nancy Elizabeth Work Phone: [facility] Work Phone: Start: 11-10-2023 End: 11-10-2023 Patient encounter procedure DO Nancy Elizabeth Work Phone: [facility] Work Phone: Start: 11-08-2023 Bamboo flowsheet Cathy Shepherd r PA Work Phone: [facility] Start: 11-08-2023 Bamboo flowsheet Cathy Shepherd r PA Work Phone: [facility] Start: 11-08-2023 End: 11-08-2023 ambulatory CATHY RANGEL Not Available Start: 11-08-2023 End: 11-08-2023 Office outpatient visit 25 minutes Cathy Rangel PA Work Phone: [facility] Comment on above: Primary insomnia (Pr imary Dx); Essential hypertension (CMS/HCC); Moderate episode of recurrent major depressive disorder (HCC) (CMS/HCC); Class 1 obesity without serious comorbidity with body mass index (BMI) of 33.0 to 33.9 in adult, unspecified obesity type; Depression with anxiety Start: 11-07-2023 Chart abstracting Cathy ALEMAN Work Phone: [facility] Comment on above: Personal history of pulmonary embolism Start: 10-20-2023 End: 10-20-2023 ambulatory SHEELA ELIZABETH Not Available Start: 10-10-2023 End: 10-10-2023 ambulatory JENNIFER JEFFRIES Not Available Start: 04-07-2022 End: 04-08-2022 Evaluation and management of inpatient SHANIQUA Ugarte [facility] Start: 04-07-2022 End: 04-08-2022 Evaluation and management of inpatient Wil Neves Work Phone: [address] Ortho/Med Surg Comment on above: SBO (small bowel obs truction) (HCC) (Primary Dx); Intestinal obstruction, unspecified cause, unspecified whether partial or complete (HCC); S/P laparoscopic surgery Start: 01-08-2022 End: 01-09-2022 ambulatory [facility] Start: 06-18-2021 End: 06-19-2021 ambulatory [facility] Start: 06-18-2021 End: 06-18-2021 Subsequent hospital visit by physician Cathy Rangel Work Phone: [facility] Comment on above: Diuretic-induced hyp okalemia Start: 04-06-2021 End: 04-07-2021 ambulatory [facility] Start: 04-06-2021 End: 04-06-2021 Subsequent hospital visit by physician Cathy Rangel Work Phone: [facility] Comment on above: Essential hypertensi on; Hyperlipidemia, unspecified hyperlipidemia type; S/P gastric bypass; Arthritis; History of pulmonary embolism; Overweight (BMI 25.0-29.9); History of repair of hiatal hernia; Vitamin D deficiency Start: 08-04-2020 End: 08-04-2020 Subsequent hospital visit by physician Cathy [facility] Comment on above: S/P bariatric surger y; Essential hypertension; Hypothyroidism, unspecified type Start: 05-30-2020 End: 05-31-2020 Evaluation and management of inpatient Wil Neves Work Phone: [facility] 2 Comment on above: Multiple subsegmenta l pulmonary emboli without acute cor pulmonale (Primary Dx) Start: 05-08-2020 End: 05-08-2020 Subsequent hospital visit by physician Judith [facility] Comment on above: Swelling of calf Start: 04-28-2020 End: 04-29-2020 Evaluation and management of inpatient Shaniqua Pina Work Phone: [facility]C Ortho/Med Surg Comment on above: S/P bariatric surger y (Primary Dx) Start: 04-24-2020 End: 04-28-2020 Subsequent hospital visit by physician Angela [facility] Schedule [facility] Pre-Admit Testing Start: 04-14-2020 End: 04-16-2020 Subsequent hospital visit by physician Judith [facility] 2 [facility] Radiology Comment on above: Arrived Start: 05-10-2019 End: 05-10-2019 Subsequent hospital visit by physician Cathy [facility] Comment on above: Obstructive sleep ap wendy; Essential hypertension; Morbid obesity (HCC) Start: 05-09-2019 End: 05-11-2019 Subsequent hospital visit by physician Suleiman Sleep 4 [facility] Sleep Center Comment on above: Obstructive sleep ap wendy; Essential hypertension; Morbid obesity (HCC) Procedures Date Procedure Procedure Detail Performing Clinician Start: 04-18-2024 Methicillin resistant Staphylococcus aureus culture MD Raza Castro II Work Phone: Start: 12-08-2023 Plain X-ray of right hip DO Nancy branham Work Phone: Start: 11-10-2023 End: 11-10-2023 X-ray of right knee DO Nancy Jose on Work Phone: Start: 04-08-2022 Basic metabolic panel calcium total Charity Bowen MD Work Phone: Start: 04-08-2022 Antibody screen Wil Neves DO Work Phone: Start: 04-07-2022 Blood count platelet automated Jack Bell MD Work Phone: Start: 04-07-2022 End: 04-07-2022 Laps abd prtm&omentum dx w/wo spec br/wa spx Shaniqua Pina DO Work Phone: Start: 04-07-2022 End: 04-07-2022 TRANSFUSE PLASMA Shaniqua Olivier O Work Phone: Start: 04-07-2022 Blood typing serologic abo Shaniqua walker DO Work Phone: Start: 04-07-2022 End: 04-07-2022 PREPARE PLASMA Kaylyn Lilly DO Start: 04-07-2022 Ct abdomen & pelvis w/contrast material Kaylyn Lilly DO Start: 04-07-2022 Basic metabolic panel calcium total Kalyyn Lilly DO Start: 04-07-2022 LACTATE, SEPSIS Silviano Mendez DO Work Phone: Start: 04-07-2022 Prothrombin time Silviano Mendez DO Work Phone: Start: 06-18-2021 Potassium serum plasma/whole blood Piper Turpin HEALTH SERVICE COORDINATOR - STEM SETTER Work Phone: Start: 04-06-2021 Comprehensive metabolic panel Piper Turpin HEALTH SERVICE COORDINATOR - STEM SETTER Work Phone: Start: 04-06-2021 Lipid panel Piper Turpin HEALTH SERVICE COORDINATOR - STEM SETTER Work Phone: Start: 04-06-2021 VITAMIN B12 & FOLATE Piper Turpin APR N - STEM SETTER Work Phone: Start: 01-08-2021 Mammography Cathy Rangel PA Work Phone: Start: 12-22-2020 H/O: surgery History of repair of hiatal hernia Cathy Rangel Work Phone: Start: 08-04-2020 25 hydroxy includes fractions if performed Shaniqua Pina Work Phone: Start: 08-04-2020 Assay of ferritin Shaniqua Pina Work Phone: Start: 08-04-2020 Assay of free thyroxine Shaniqua Loyd on Work Phone: Start: 08-04-2020 Assay of magnesium Shaniqua Pina Work Phone: Start: 08-04-2020 Assay of parathormone Shaniqua Pina Work Phone: Start: 08-04-2020 Assay of thyroid stimulating hormone tsh Shaniqua Pina Work Phone: Start: 08-04-2020 Blood count complete auto&auto difrntl wbc Shaniqua Pina Work Phone: Start: 08-04-2020 Comprehensive metabolic panel Shaniqua Pina Work Phone: Start: 08-04-2020 Cyanocobalamin vitamin b-12 Shaniqua Pina Work Phone: Start: 08-04-2020 Hemoglobin glycosylated a1c Shaniqua Pina Work Phone: Start: 08-04-2020 Iron binding capacity Shaniqua Pina Work Phone: Start: 05-31-2020 Assay of magnesium Camryn Peters Work Phone: Start: 05-31-2020 BASIC METABOLIC PANEL W/ REFLEX TO MG FOR LOW K Camryn D Delgrosso Work Phone: Start: 05-31-2020 Blood count complete automated Camryn D Delgrosso Work Phone: Start: 05-31-2020 Prothrombin time Camryn D Delgrosso Work Phone: Start: 05-30-2020 Echo tthrc r-t 2d w/wom-mode compl spec&colr d Mary Kate Eisenberg Work Phone: Start: 05-30-2020 Potassium serum plasma/whole blood Mary Kate Eisenberg Work Phone: Start: 05-30-2020 Dup-scan xtr veins complete bilateral study Jam Jiménez Work Phone: Start: 05-30-2020 Thromboplastin time partial plasma/whole blood Camryn Villalobososso Work Phone: Start: 05-30-2020 Blood count complete automated Camryn Soy Villalobososso Work Phone: Start: 05-30-2020 Thromboplastin time partial plasma/whole blood Camrynreji Villalobososso Work Phone: Start: 05-30-2020 Assay of troponin quantitative Acosta Nancy Rodriguez Work Phone: Start: 05-30-2020 Blood count complete automated Acosta Cruz Rodriguez Work Phone: Start: 05-30-2020 LACTATE, SEPSIS Acosta Nancy Rodriguez Work Phone: Start: 05-30-2020 Thromboplastin time partial plasma/whole blood Acosta Nancy Rodriguez Work Phone: Start: 05-30-2020 Ct abdomen & pelvis w/contrast material Acosta Nancy Rodriguez Work Phone: Start: 05-30-2020 Ct thorax w/contrast material Acosta Nancy Rodriguez Work Phone: Start: 05-30-2020 Assay of troponin quantitative Acosta Nancy Rodriguez Work Phone: Start: 05-30-2020 Basic metabolic panel calcium total Acosta Nancy Rodriguez Work Phone: Start: 05-30-2020 Blood count complete auto&auto difrntl wbc Acosta Nancy Rodriguez Work Phone: Start: 05-30-2020 Hepatic function panel Acotsa Nancy Rodriguez Work Phone: Start: 05-30-2020 LACTATE, SEPSIS Acosta Nancy Rodriguez Work Phone: Start: 05-30-2020 Natriuretic peptide Acosta Nancy Rodriguez Work Phone: Start: 05-30-2020 Ecg routine ecg w/least 12 lds w/i&r Acosta Nancy Rodriguez Work Phone: Start: 04-29-2020 Radiologic exam abdomen 1 view Shaniqua Pina Work Phone: Start: 04-29-2020 Radex esophagus Shaniqua Pina Work Phone: Start: 04-29-2020 Basic metabolic panel calcium total Shaniqua Pina Work Phone: Start: 04-29-2020 Blood count complete automated Shaniqua Pina Work Phone: Start: 04-28-2020 Basic metabolic panel calcium total Shaniqua Pina Work Phone: Start: 04-28-2020 Blood count complete automated Shaniqua Pina Work Phone: Start: 04-28-2020 End: 04-28-2020 Laps gstr rstcv px w/byp nury-en-y limb <150 cm Shaniqua Pina Work Phone: Start: 04-28-2020 NOTIFICATION PANEL, POC Shaniqua Loyd on Work Phone: Start: 04-28-2020 Potassium [Moles/Vol] Shaniqua Pina Work Phone: Start: 04-24-2020 COVID-19 AMBULATORY Edu Quesada Work Phone: Start: 04-14-2020 Radiologic exam chest 2 views Shaniqua Pina Work Phone: Start: 05-10-2019 Hepatitis c antibody Shaw Bella Work Phone: Start: 05-10-2019 Assay of free thyroxine Shaniqua Loyd on Work Phone: Start: 05-10-2019 Assay of magnesium Shaniqua Pina Work Phone: Start: 05-10-2019 Assay of parathormone Shaniqua Pina Work Phone: Start: 05-10-2019 Assay of thyroid stimulating hormone tsh Shaniqua Pina Work Phone: Start: 05-10-2019 Blood count complete auto&auto difrntl wbc Shaniqua Pina Work Phone: Start: 05-10-2019 Comprehensive metabolic panel Shaniqua Pina Work Phone: Start: 05-10-2019 Lipid panel Shaniqua Pina Work Phone: Start: 05-10-2019 VITAMIN B12 & FOLATE Shaniqua Pina Work Phone: H/O: surgery History of repai r of hiatal hernia Cathy Rangel Work Phone: Plan of Treatment Date Care Activity Detail Author Start: 05-22-2031 DTaP/Tdap/Td vaccine (2 - Td or Tdap) DTaP/Tdap/Td vaccine (2 - Td or Tdap) [employer] [facility] Apartment List Start: 10-06-2024 Pneumococcal Vaccine : 65+ Years (2 - PCV) Pneumococcal Vaccine: 65+ Years (2 - PCV) [facility] Comment on above: Postponed from 05/22 (Other Patient Reasons) Start: 07-12-2024 Medicare Annual Well ness (AWV) Medicare Annual Wellness (AWV) [facility] Start: 06-04-2024 Screening for malign ant neoplasm of colon [facility] Start: 05-22-2024 Diabetes screen Diabetes screen [employer] Start: 05-10-2024 [facility] [place] [place] Start: 04-18-2024 MRSA Culture MRSA Culture [facility] Start: 04-18-2024 Methicillin resistan t Staphylococcus aureus [Presence] in Unspecified specimen by Organism specific culture [facility] Start: 04-18-2024 [facility] Start: 02-06-2024 End: 02-06-2024 Patient encounter procedure 02/06/2024 1:00 PM EDT Office Visit [facility] [address] [facility] [address] [place] [address] Cathy Rangel PA [address] [facility] [address] [place] [address] [facility] Start: 12-18-2023 Diabetes screen Diabetes screen [email or web address] Work Phone: Start: 12-08-2023 Plain X-ray of right hip XR hi p RT min 2V(w/wo pelvis)* [facility] Start: 12-08-2023 XR Hip - right 2 Views [facility] Start: 11-10-2023 Pelvis X-ray XR pelvis 1-2V [facility] Start: 11-10-2023 XR Pelvis 1 or 2 Views [facility] Start: 11-08-2023 End: 11-08-2023 Patient encounter procedure 11/08/2023 1:30 PM EST Office Visit [facility] [address] [facility] [address] [place] [address] Cathy Rangel, PA [address] [place] [address] [place] [address] [facility] Start: 01-08-2023 Lipid panel Lipids [facility] [employer] Start: 07-12-2022 End: 07-12-2022 Patient encounter procedure 07/12/2022 Office Visit Bariatrics Piper Turpin, HEALTH SERVICE COORDINATOR - STEM SETTER [address] [place] [address] [facility] Start: 06-18-2022 Potassium monitoring Potassium monit oring [employer] Phone: Start: 05-27-2022 Influenza vaccination Flu vaccine (# 1) [facility] Start: 05-22-2022 Creatinine [facility] Work Phone: Start: 05-22-2022 Lipid panel Lipid screen [employer] Work Phone: Start: 05-22-2022 Pneumococcal 65+ yea rs Vaccine (2 - PCV) Pneumococcal 65+ years Vaccine (2 - PCV) [employer] Apartment List Start: 05-22-2022 Thyroid stimulating hormone measurement TSH testing [employer] Phone: Start: 04-06-2022 Creatinine [facility] [employer] Work Phone: Start: 04-06-2022 Lipid panel Lipid screen [facility] [employer] Phone: Start: 04-06-2022 Potassium monitoring Potassium monit [facility] Phone: Start: 04-06-2022 Thyroid stimulating hormone measurement TSH testing [facility] Phone: Start: 01-08-2022 Screening for malign ant neoplasm of breast Mammogram [facility] Start: 06-22-2021 End: 06-22-2021 Patient encounter procedure 06/22/2021 Office Visit Piper Hill, HEALTH SERVICE COORDINATOR - STEM SETTER [address] [place] [phone] [facility] [place] Start: 06-15-2021 End: 06-15-2021 Patient encounter procedure 06/15/2021 Office Visit Piper Hill, HEALTH SERVICE COORDINATOR - STEM SETTER [address] [facility] [address] [place] [phone] [facility] [place] Start: 05-31-2021 Creatinine measurement Creatinine mo [place] Start: 05-31-2021 Potassium monitoring Potassium monit [place], [place] Start: 05-27-2021 Influenza vaccination Flu vaccine (# 1) [facility] Phone: Start: 04-29-2021 Creatinine measurement Creatinine mo [place] Start: 04-29-2021 Potassium monitoring Potassium monit [place] Start: 04-28-2021 Creatinine measurement Creatinine mo [place] Start: 04-28-2021 Potassium monitoring Potassium monit [place] Start: 04-14-2021 Creatinine measurement Creatinine mo [place] Start: 04-14-2021 Potassium monitoring Potassium monit [place] Start: 01-12-2021 Pneumococcal 65+ yea rs Vaccine (1 of 1 - PPSV23) Pneumococcal 65+ years Vaccine (1 of 1 - PPSV23) [facility] Work Phone: Start: 12-19-2020 Shingles vaccine (2 of 2) Shingles vaccine (2 of 2) [facility] Start: 09-01-2020 End: 09-01-2020 Office Visit 09/01/2020 Office Visit Bariatrics Piper Turpin, HEALTH SERVICE COORDINATOR - STEM SETTER [address] [place] [phone] [facility] Start: 06-12-2020 End: 06-12-2020 Office Visit 06/12/2020 Office Visit Shaniqua Anderson DO [address] [place] [address] [facility] Invasive Bariatric Surg Start: 05-27-2020 Influenza vaccination Flu vaccine (# 1) [place], [place] Start: 05-15-2020 End: 05-15-2020 Office Visit 05/15/2020 Office Visit Shaniqua Anderson DO [address] [place] [address] [facility] Invasive Bariatric Surg Start: 05-10-2020 Creatinine monitoring Creatinine mon itoring [place] Start: 05-10-2020 Lipid panel Lipid screen [place], [place] Start: 05-10-2020 Potassium monitoring Potassium monit [place]ing [place] Start: 05-10-2020 TSH Qn TSH testing [place], [place] Start: 05-08-2020 End: 05-08-2020 Office Visit 05/08/2020 Office Visit Shaniqua Anderson DO [address] [place] [address] [facility] Invasive Bariatric Surg Start: 04-28-2020 End: 04-28-2020 Hospital Encounter [facility] Comment on above: LAPAROSCOPIC XI ROBO TIC GASTRIC BYPASS NURY-EN-Y, LIVER BIOPSY, EGD- GI UNIT SCHEDULED. Start: 04-24-2020 End: 04-24-2020 Office Visit Devorah Soria Invasive Bariatric Surg Start: 05-27-2019 Influenza vaccination Flu vaccine (# 1) [place] Start: 05-25-2019 End: 05-25-2019 Nurse Only 05/25/2019 Nurse Only Bariatrics Devorah Soria Invasive Bariatric Surg Start: 04-27-2019 Annual Wellness Visi t (AWV) Annual Wellness Visit (AWV) [place] Start: 01-12-2019 Annual Wellness Visi t (AWV) Annual Wellness Visit (AWV) [place] Start: 01-12-2011 Screening for osteoporosis DEXA (modify frequency per FRAX score) [facility] Start: 01-12-2006 Breast cancer screen [facility] [place] [place] Start: 01-12-2006 Colon cancer screen colonoscopy Colon cancer screen colonoscopy [place] Start: 01-12-2006 Screening for malign ant neoplasm of breast Breast cancer screen [facility] Start: 01-12-2006 Screening for malign ant neoplasm of colon Colon cancer screen colonoscopy [place] Start: 01-12-2006 Shingles Vaccine (1 of 2) Shingles Vaccine (1 of 2) [place] Start: 01-12-2001 Screening for malign ant neoplasm of colon [facility] Start: 1996 Diabetes screen Diabetes screen [place], [place] Start: 01-12-1986 Screening for malign ant neoplasm of cervix [facility] Work Phone: Start: 01-12-1977 Cervical cancer screen Cervical canc er screen [place], [place] Start: 01-12-1977 Screening for malign ant neoplasm of cervix [place] Start: 01-12-1975 DTaP/Tdap/Td vaccine (1 - Tdap) DTaP/Tdap/Td vaccine (1 - Tdap) [place] Start: 01-12-1971 HIV screen HIV screen [place], [place] Start: 01-12-1971 HIV screening HIV screen [facility] [place], [place] Start: 1968 COVID-19 Vaccine (1) COVID-19 Vaccin e (1) [employer] Phone: Start: 1968 Depression Screen Depression Screen [employer] [facility] [facility] Apartment List Start: 01-12-1961 COVID-19 Vaccine (1) COVID-19 Vaccin e (1) [employer] [facility] Apartment List Start: 1956 Annual Wellness Visi t (AWV) Annual Wellness Visit (AWV) [employer] [facility] Apartment List Start: 1956 Hepatitis C screen Hepatitis C scree n [place], [place] Start: 1956 Screening for malign ant neoplasm of colon [facility] End: 05-09-2019 Baseline Diagnostic Sleep Study Baseline Diagnostic Sleep Study Sleep Center Routine Obstructive sleep apnea Essential hypertension Morbid obesity (HCC) 1 Occurrences starting 05/09/2019 until 05/09/2019 [facility] [place] Comment on above: 1 Occurrences starti ng 05/09/2019 until 05/09/2019 End: 04-07-2022 Blood Bank Specimen [employer] [facility] Work Phone: Comment on above: Once for 1 Occurrenc es starting 04/07/2022 until 04/07/2022 CBC CBC Lab Routine Every Other Day until discontinued starting 06/01/2020 [facility] [place] Comment on above: Every Other Day unti l discontinued starting 06/01/2020 Continuous pulse oximetry Pulse oximetry, continuous Respiratory Care Routine Every 4hr until discontinued starting 04/28/2020 [facility] [place] Comment on above: Every 4hr until disc ontinued starting 04/28/2020 Cotinine [Mass/volum e] in Serum or Plasma [facility] EKG 12 Lead EKG 12 Lead ECG STAT 05/30/2020 1:20 AM EDT [facility] [place] Glucose measurement estimated from glycated hemoglobin [facility] Incentive spirometry Incentive s pirometry Respiratory Care Routine Every 2hr while awake until discontinued starting 04/28/2020 [facility] [place] Comment on above: Every 2hr while awak e until discontinued starting 04/28/2020 Intermittent pulse oximetry Pulse Oximetry Spot Check Respiratory Care Routine As Needed until discontinued starting 05/30/2020 [facility] [place] Comment on above: As Needed until disc ontinued starting 05/30/2020 Nebulizer therapy HHN Treatment Respiratory Care Routine TID until discontinued starting 04/28/2020 [facility] [place] Comment on above: TID until discontinu ed starting 04/28/2020 Nicotine [Mass/volum e] in Serum or Plasma [facility] Oxygen therapy Initiate Oxygen Therapy Protocol Respiratory Care Routine Daily until discontinued starting 04/28/2020 [facility] Comment on above: Daily until disconti nued starting 04/28/2020 Oxygen therapy [Mini mum Data Set] Initiate Oxygen Therapy Protocol Respiratory Care Routine Daily until discontinued starting 05/30/2020 [facility] [place] Comment on above: Daily until disconti nued starting 05/30/2020 Oxygen therapy [Mini mum Data Set] Initiate Oxygen Therapy Protocol Respiratory Care Routine Daily until discontinued starting 04/07/2022 [email or web address] Phone: Comment on above: Daily until disconti nued starting 04/07/2022 End: 04-07-2022 PREPARE RBC (CROSSMATCH), 2 Units PREPARE RBC (CROSSMATCH), 2 Units Blood Bank STAT Once for 1 Occurrences starting 04/07/2022 until 04/07/2022 [email or web address] Phone: Comment on above: Once for 1 Occurrenc es starting 04/07/2022 until 04/07/2022 End: 04-07-2022 Protime-INR Protime-INR Lab STAT One Time for 1 Occurrences starting 04/07/2022 until 04/07/2022 [email or web address] Phone: Comment on above: One Time for 1 Occur rences starting 04/07/2022 until 04/07/2022 Protime-INR Protime-INR Lab Routine Daily until discontinued starting 04/09/2022 [email or web address] Phone: Comment on above: Daily until disconti nued starting 04/09/2022 End: 05-10-2019 Reflex Order Reflex Order Lab Routine Once for 1 Occurrences starting 05/10/2019 until 05/10/2019 [facility] [place] Comment on above: Once for 1 Occurrenc es starting 05/10/2019 until 05/10/2019 Reflex Order Reflex Order Lab Routine 05/10/2019 10:17 AM EDT [facility] [place] Respiratory care evaluation only Respiratory care evaluation only Respiratory Care Routine Daily until discontinued starting 05/30/2020 [facility] [place] Comment on above: Daily until disconti nued starting 05/30/2020 Spirometry panel Incentive laurent metry Respiratory Care Routine Daily until discontinued starting 04/07/2022 [email or web address] Phone: Comment on above: Daily until disconti nued starting 04/07/2022 Surgical Pathology Surgical Path ology Lab Routine Intestinal obstruction, unspecified cause, unspecified whether partial or complete (HCC) Release Upon Ordering for 1 Occurrences starting 04/07/2022 [email or web address] Phone: Comment on above: Release Upon Orderin g for 1 Occurrences starting 04/07/2022 End: 04-08-2022 SURGICAL PATHOLOGY REPORT SURGICAL PATHOLOGY REPORT Lab Routine Once for 1 Occurrences starting 04/08/2022 until 04/08/2022 [email or web address] Phone: Comment on above: Once for 1 Occurrenc es starting 04/08/2022 until 04/08/2022 Transfuse Plasma Transfuse Plasm a Nursing Transfusion STAT 04/07/2022 4:06 PM EDT [email or web address] Phone: End: 05-30-2020 Urinalysis with microscopic Urinalysis with microscopic Lab STAT One Time for 1 Occurrences starting 05/30/2020 until 05/30/2020 [place] Comment on above: One Time for 1 Occur rences starting 05/30/2020 until 05/30/2020 End: 05-08-2020 US DUP LOWER EXTREMITIES BILATERAL VENOUS US DUP LOWER EXTREMITIES BILATERAL VENOUS Imaging STAT Swelling of calf 1 Occurrences starting 05/08/2020 until 05/08/2020 [facility] [place] Comment on above: 1 Occurrences starti ng 05/08/2020 until 05/08/2020 End: 05-10-2019 Vitamin A Vitamin A Lab Routine Obstructive sleep apnea Essential hypertension Morbid obesity (HCC) 1 Occurrences starting 05/10/2019 until 05/10/2019 [facility] [place] Comment on above: 1 Occurrences starti ng 05/10/2019 until 05/10/2019 Vitamin A [employer] End: 08-04-2020 Vitamin A Vitamin A Lab Routine S/P bariatric surgery Essential hypertension 1 Occurrences starting 08/04/2020 until 08/04/2020 [facility] [place] Comment on above: 1 Occurrences starti ng 08/04/2020 until 08/04/2020 End: 04-06-2021 Vitamin A Vitamin A Lab Routine Essential hypertension Hyperlipidemia, unspecified hyperlipidemia type S/P gastric bypass Arthritis History of pulmonary embolism Overweight (BMI 25.0-29.9) History of repair of hiatal hernia Vitamin D deficiency 1 Occurrences starting 04/06/2021 until 04/06/2021 [employer] Phone: Comment on above: 1 Occurrences starti ng 04/06/2021 until 04/06/2021 End: 05-10-2019 Vitamin B1 Vitamin B1 Lab Routine Obstructive sleep apnea Essential hypertension Morbid obesity (HCC) 1 Occurrences starting 05/10/2019 until 05/10/2019 [place] Comment on above: 1 Occurrences starti ng 05/10/2019 until 05/10/2019 Vitamin B1 [employer] [place] End: 08-04-2020 Vitamin B1 Vitamin B1 Lab Routine Once for 1 Occurrences starting 08/04/2020 until 08/04/2020 [facility] [place] Comment on above: Once for 1 Occurrenc es starting 08/04/2020 until 08/04/2020 End: 04-06-2021 Vitamin B1 Vitamin B1 Lab Routine Essential hypertension Hyperlipidemia, unspecified hyperlipidemia type S/P gastric bypass Arthritis History of pulmonary embolism Overweight (BMI 25.0-29.9) History of repair of hiatal hernia Vitamin D deficiency 1 Occurrences starting 04/06/2021 until 04/06/2021 [employer] Phone: Comment on above: 1 Occurrences starti ng 04/06/2021 until 04/06/2021 End: 08-04-2020 Vitamin B1, Whole Blood Vitamin B1, Whole Blood Lab Routine S/P bariatric surgery Essential hypertension 1 Occurrences starting 08/04/2020 until 08/04/2020 [employer] [place] Comment on above: 1 Occurrences starti ng 08/04/2020 until 08/04/2020 End: 05-10-2019 Zinc Zinc Lab Routine Obstructive sleep apnea Essential hypertension Morbid obesity (HCC) 1 Occurrences starting 05/10/2019 until 05/10/2019 [facility] Comment on above: 1 Occurrences starti ng 05/10/2019 until 05/10/2019 [facility] End: 08-04-2020 [employer]inc Lab Routine S/P bariatric surgery Essential hypertension 1 Occurrences starting 08/04/2020 until 08/04/2020 [facility], [place] Comment on above: 1 Occurrences starti ng 08/04/2020 until 08/04/2020 End: 04-06-2021 Zinc Zinc Lab Routine Essential hypertension Hyperlipidemia, unspecified hyperlipidemia type S/P gastric bypass Arthritis History of pulmonary embolism Overweight (BMI 25.0-29.9) History of repair of hiatal hernia Vitamin D deficiency 1 Occurrences starting 04/06/2021 until 04/06/2021 [employer] Work Phone: Comment on above: 1 Occurrences starti ng 04/06/2021 until 04/06/2021 Immunizations Immunization Date Immunization Notes Care Provider Tory reed 07-12-2023 Influenza, High-dose Seasonal, Quadrivalent, Preservative Free Cathy Hemmer PA Work Phone: [facility] 07-28-2021 influenza, high dose seasonal, preservative-free Cathy Hemmer PA Work Phone: [facility] 05-22-2021 pneumococcal polysaccharide vaccine, 23 valent Cathy Hemmer PA Work Phone: [facility] 05-22-2021 tetanus toxoid, redu tricia diphtheria toxoid, and acellular pertussis vaccine, adsorbed Cathy Hemmer PA Work Phone: [facility] 10-24-2020 zoster vaccine recombinant K aren Hemmer PA Work Phone: [facility] 06-17-2020 influenza, injectabl e, quadrivalent, preservative free Cathy Hemmer PA Work Phone: [facility] 10-26-2017 influenza, injectabl e, quadrivalent, preservative free Cathy Hemmer PA Work Phone: [facility] Payers Date Payer Category Payer Medicare [id number] 2023 Self-pay [id number] 2022 Medicare [employer] MEDICARE UHC DUAL COMPLETE [id number] 2022-Present [address] [place] [address] [id number] 2020 Medicare [id number] 2018 Medicare xxxxxxxxxxx [id number] 2018 Medicare MEDICARE MEDICAR E PART A AND B [id number] 2018-Present [phone] [place] [address] [id number] 2018 Medicare MEDICARE MEDICAR E PART A AND B [id number] 2018-Present [phone] [place] [address] [id number] 2018 Private Health Insurance [employer] MEDICARE SUPP [id number] 2018-Present [phone] [address] [place] [address] [id number] 2018 Private Health Insurance [id number] .[id number] 1956 Unknown [id number] 2.16.840.1.916163.3.579.2 .176 1956 Unknown [id number] 2.16.840.1.894735.3.579.2 .176 1956 Unknown [id number] 2.16.840.1.599858.3.579.2 .176 1956 Unknown [id number] 2.16.840.1.860307.3.579.2 .175 1956 Unknown [id number] 2.16.840.1.348724.3.579.2 .128 1956 Unknown [id number] 2.16.840.1.663396.3.579.2 .1285 1956 Unknown [id number] 2.16.840.1.800132.3.579.2 .128 1956 Unknown [id number] 2.16.840.1.583245.3.579.2 .1258 1956 Unknown [id number] 2.16.840.1.992063.3.579.2 .1258 1956 Unknown [id number] 2.16.840.1.798400.3.579.2 .1258 1956 Unknown [id number] 2.16.840.1.717415.3.579.2 .1258 1956 Unknown [id number] 2.16.840.1.123732.3.579.2 .1258 1956 Unknown [id number] 2.16.840.1.049077.3.579.2 .1258 1956 Unknown [id number] 2.16.840.1.394333.3.579.2 .1258 1956 Unknown [id number] 2.16.840.1.488969.3.579.2 .1258 1956 Unknown [id number] 2.16.840.1.633811.3.579.2 .1258 1956 Unknown [id number] 2.16.840.1.355461.3.579.2 .1259 Private Health Insurance [facility] [id number] Unknown [id number] 2.16.840.1.220123.3.579.2 .531 Unknown [id number] 2.16.840.1.583753.3.579.2 .531 Unknown [id number] 2.16.840.1.987662.3.579.2 .531 Social History Date Type Detail Facility Start: 04-20-2019 End: 05-03-2023 Tobacco smoking status NHIS Never smoker [place], [place] Start: 04-20-2019 End: 04-11-2023 Alcohol intake Never [facility] Work Phone: Start: 04-20-2019 History SDOH Alcohol Frequency 1 [place], [place] Start: 1955 Sex Assigned At Not on file M [place], [place] Start: 04-14-2020 End: 05-03-2023 Tobacco use and exposure Never used [place] Start: 04-14-2020 End: 11-08-2023 Alcohol intake Lifetime non-drinker (finding) [place] Start: 03-28-2022 End: 04-07-2022 Exposure to SARS-CoV-2 (event) Not sure [place] Start: 04-11-2023 End: 07-12-2023 History of Social function [facility] Work Phone: Within the last year , have you been afraid of your partner or ex-partner? No [facility] Work Phone: Are you now , , , , never or living with a partner? [facility] How often to you hav e a drink containing alcohol? Monthly or less [facility] How many standard drinks containing alcohol do you have on a typical day? 1 or 2 [facility] How often do you hav e 6 or more drinks on 1 occasion? Never [facility] How hard is it for y ou to pay for the very basics like food, housing, medical care, and heating Not hard at all [facility] Do you feel stress - tense, restless, nervous, or anxious, or unable to sleep at night because your mind is troubled all the time - these days [OSQ] Not at all [facility] (I/We) worried wheth er (my/our) food would run out before (I/we) got money to buy more. Never true [facility] Start: 1955 Sex Assigned At Female F [facility] NEGATED: Highlighted row [facility] Clinical Notes 08-28-2021 to 11-08-2023 Cathy Rangel, ASH - 11/08/2023 1:30 PM ESTTelephone Encounter - Cathy Rangel, ASH - 11/08/2023 12:52 PM ESTTelephone Encounter - Cathy Rangel, ASH - 11/08/2023 12:52 PM ESTDischarge Instr - EDILMA Note Date & Type Note Facility 11-08-2023 History of Presen t illness Narrative Subjective Patient ID: Alfredo Sosa is a 68 y.o. female who presents for depression. Subjective Alfredo Sosa is a 68 y.o. female who presents for evaluation and treatment of depressive symptoms. Onset approximately 3 months ago. Feels like overall she has a good life and doesn't understand why she is depressed. Current symptoms include depressed mood, fatigue, and anxiety, sleeps alot Current treatment for depression: pt has cymbalta and buspirone is on current med list but has not been taking. Sleep problems: has ambien and that helps. May be getting right knee replacement. Current Outpatient Medications on File Prior to Visit Medication Sig Dispense Refill atorvastatin (Lipitor) 20 MG tablet TAKE 1 TABLET BY MOUTH ONCE DAILY IN THE EVENING 90 tablet 3 busPIRone (Buspar) 10 MG tablet Take 1 tablet (10 mg) by mouth 2 (two) times a day as needed (Anxiety). (Patient not taking: Reported on 11/08/2023) 60 tablet 2 hydroCHLOROthiazide (HYDRODiuril) 25 MG tablet TAKE 1 TABLET BY MOUTH ONCE DAILY 90 tablet 3 levothyroxine (Synthroid, Levoxyl) 125 MCG tablet TAKE 1 TABLET BY MOUTH ON AN EMPTY STOMACH ONCE DAILY IN THE MORNING 90 tablet 3 Multiple Vitamin (multivitamin) capsule as directed Orally oxybutynin (Ditropan) 5 MG tablet TAKE 1 TABLET BY MOUTH TWICE DAILY 180 tablet 3 pantoprazole (ProtoNix) 20 MG EC tablet TAKE 1 TABLET BY MOUTH ONCE DAILY 90 tablet 3 warfarin (Coumadin) 2.5 MG tablet Take 1 tablet (2.5 mg) by mouth See administration instructions 5 mg daily except for 2.5 mg on Tuesday. 200 tablet 3 zolpidem (Ambien) 5 MG tablet Take 1 tablet (5 mg) by mouth as needed at bedtime for sleep. 30 tablet 2 [DISCONTINUED] DULoxetine (Cymbalta) [address] capsule Take 1 capsule (60 mg) by mouth in the morning and 1 capsule (60 mg) before bedtime. (Patient not taking: Reported on 11/08/2023) 60 capsule 0 [DISCONTINUED] warfarin (Coumadin) 2.5 MG tablet TAKE 2 TABLETS BY MOUTH ONCE DAILY EXCEPT FOR 1 TABLET ON TUESDAY AND TUESDAY . AND ON TUESDAY TAKE 1 AND 1/2 TABLETS 98 tablet 3 No current facility-administered medications on file prior to visit. Allergies Allergen Reactions Acetaminophen-Codeine Other Social History Tobacco Use Smoking status: Never Smokeless tobacco: Never Substance Use Topics Alcohol use: Never Drug use: Never Family History Problem Relation Name Age of Onset Throat cancer Father Hypertension Father Heart disease Father No Known Problems Brother No Known Problems Daughter No Known Problems Son Past Medical History: Diagnosis Date Anxiety Arthritis Constipation Cystocele, unspecified Depression (CMS/HCC) Edema Elevated hematocrit Eosinophilia Hyperlipidemia (CMS/HCC) Hypothyroidism (CMS/HCC) Impaired fasting glucose Multiple subsegmental pulmonary emboli without acute cor pulmonale (CMS/HCC) 07/12/2023 Post-menopausal bleeding Pulmonary emboli (CMS/HCC) 05/30/2020 Pulmonary emboli (CMS/HCC) 10/13/2020 Small bowel obstruction (CMS/HCC) 03/2022 Urinary incontinence Past Surgical History: Procedure Laterality Date EGD 07/2019 GASTRIC BYPASS 04/28/2020 Laparoscopic Roex-en-Y gastric Bypass, Laproscopic Hiatal hernia Repair NAIL REMOVAL total toenail OTHER SURGICAL HISTORY 04/07/2022 Laparoscopy: Lysis of Adhesions, Reduction of SBO, SB Resection Visit Vitals BP 118/82 Pulse 76 Resp 16 Wt 224 lb SpO2 97% BMI 33.08 kg/m Smoking Status Never BSA 2.23 m Review of Systems Constitutional: Positive for fatigue. Negative for chills and fever. Respiratory: Negative for cough, shortness of breath and wheezing. Cardiovascular: Negative for chest pain and palpitations. Gastrointestinal: Negative for abdominal pain, constipation, diarrhea, nausea and vomiting. Skin: Negative for rash. Psychiatric/Behavioral: Positive for dysphoric mood and sleep disturbance. The patient is nervous/anxious. Objective Physical Exam Constitutional: General: She is not in acute distress. Appearance: She is well-developed. She is obese. HENT: Head: Normocephalic and atraumatic. Right Ear: Decreased hearing noted. Left Ear: Decreased hearing noted. Ears: Comments: Hearing aids bilat Eyes: General: No scleral icterus. Conjunctiva/sclera: Conjunctivae normal. Cardiovascular: Rate and Rhythm: Normal rate and regular rhythm. Heart sounds: Normal heart sounds. No murmur heard. Pulmonary: Effort: Pulmonary effort is normal. No respiratory distress. Breath sounds: Normal breath sounds. No wheezing, rhonchi or rales. Skin: General: Skin is warm and dry. Neurological: General: No focal deficit present. Mental Status: She is alert and oriented to person, place, and time. Psychiatric: Mood and Affect: Mood is depressed. Speech: Speech normal. Behavior: Behavior normal. Thought Content: Thought content normal. Cognition and Memory: Cognition normal. Judgment: Judgment normal. Assessment/Plan Diagnoses and all orders for this visit: Primary insomnia Ambien as needed. Sleeping too much currently. Likely secondary to depression. Essential hypertension (CMS/HCC) Patient's blood pressure is currently stable. Continue with current medications and I will continue to monitor. Goal BP remains less than 130/80. Moderate episode of recurrent major depressive disorder (HCC) (CMS/HCC) - DULoxetine (Cymbalta) [address] capsule; Take 1 capsule (60 mg) by mouth in the morning and 1 capsule (60 mg) before bedtime. Encouraged pt to restart Cymbalta once a day for 1 week, then can increase to twice a day if doing well. Advised she should notice that her mood improves gradually over the next few weeks. Contact office if any worsening of mood. Class 1 obesity without serious comorbidity with body mass index (BMI) of 33.0 to 33.9 in adult, unspecified obesity type Weight gain due to inactivity secondary to knee pain and worsening depression symptoms. Encouraged portion control, decrease simple sugars and carbohydrates, gradually increase activity level, low impact exercise. Aim for gradual steady weight loss. Depression with anxiety Keep Buspar on hand as needed for anxiety. Follow up in about 3 months (around 02/06/2024) for Medication Follow Up. documented in this encounter [facility] 11-08-2023 Telephone encounter Note Understood. Refill sent. Will discuss INR with pt at her appt today. [facility] 11-08-2023 Miscellaneous Notes Understood. Refill sent. Will discuss INR with pt at her appt today. 5mg all days except wed is 2.5mg and 3.1 on tuesday Alfredo was called and VM was left asking what her dosage for her coumadin is. Please let pt know that her INR was elevated at 3.5. I am seeing a few different dosages for her Coumadin in the system. Please call pt and leave her a message (doesn't usually answer her phone) to call back and let us know what her current dosage is so I can adjust it properly. documented in this encounter [facility] 11-08-2023 Telephone encounter Note 5mg all days except wed is 2.5mg and 3.1 on tuesday [facility] 11-07-2023 Telephone encounter Note Alfredo was called and VM was left asking what her dosage for her coumadin is. [facility] 11-07-2023 Telephone encounter Note Please let pt know that her INR was elevated at 3.5. I am seeing a few different dosages for her Coumadin in the system. Please call pt and leave her a message (doesn't usually answer her phone) to call back and let us know what her current dosage is so I can adjust it properly. [facility] 04-08-2022 History of Presen t illness Narrative CLINICAL PHARMACY NOTE: MEDS TO BEDS Total # of Prescriptions Filled: 2 The following medications were delivered to the patient: Flexeril percocet Additional Documentation: Images from the original note were not included. PROGRESS NOTE PATIENT NAME: Alfredo Sosa DATE: 04/08/2022 SURGEON: Matty PRIMARY CARE PHYSICIAN: Cathy Rangel HD: # 1 ASSESSMENT Patient Active Problem List Diagnosis HLD (hyperlipidemia) Essential hypertension Hypothyroidism Overactive bladder Arthritis S/P gastric bypass Pulmonary embolism and infarction (HCC) Electrolyte disturbance Multiple subsegmental pulmonary emboli without acute cor pulmonale (HCC) Hypokalemia Overweight (BMI 25.0-29.9) History of pulmonary embolism History of repair of hiatal hernia Vitamin D deficiency Intestinal malabsorption Small bowel obstruction (HCC) MEDICAL DECISION MAKING AND PLAN Neuro: Percocet, Flexeril CV: Resume home antihypertensives: Hydrochlorothiazide, will hold Coumadin at this time Heme: Follow-up morning labs Pulm: Encourage deep breathing and incentive spirometry Renal: Voiding spontaneously GI: Postop day 1 from diagnostic laparoscopy, reduction of small bowel obstruction, lysis of adhesions and small bowel resection. ID: No antibiotics at this time monitor for fevers Endo: This within normal limits MSK: Encourage ambulation up out of bed Dispo:Appropriate for discharge. Resume home coumadin. Follow up with coumadin clinic 04/[address] Pina, 1 week Chief Complaint: Abdominal pain SUBJECTIVE Alfredo Sosa was seen and examined at bedside. Postop day 1 from diagnostic laparoscopy with reduction of small bowel obstruction. Overall patient improved, denies nausea or vomiting. Complaining of appropriate perioperative pain. OBJECTIVE VITALS: Temp: Temp: 97.7 F (36.5 C)Temp Av.3 F (36.3 C) Min: 96.5 F (35.8 C) Max: 98.2 F (36.8 C) BP Systolic (24hrs), Av , Min:100 , Max:137 Diastolic (24hrs), Av, Min:62, Max:86 Pulse Pulse Av.2 Min: 61 Max: 90 Resp Resp Av.7 Min: 13 Max: 20 Pulse ox SpO2 Av.8 % Min: 95 % Max: 100 % GENERAL: alert, no distress NEURO: No acute neurological deficits HEENT: Normocephalic/atraumatic : normal LUNGS: Normal respiratory effort HEART: normal rate and regular rhythm ABDOMEN: Soft, nondistended, appropriately tender around incisions, incisions clean dry and intact with surgical glue EXTREMITY: no cyanosis, clubbing or edema I/O last 3 completed shifts: In: 2333.1 [I.V.:2049; Blood:283.1] Out: 835 [Urine:825; Blood:10] Drain/tube output: In: 2333.1 [I.V.:2049; Blood:283.1] Out: 835 [Urine:825] LAB: CBC: Recent Labs 04/07/22 1049 04/07/22 1748 WBC 6.5 -- HGB 13.2 -- HCT 40.4 -- MCV 84.3 -- PLT 219 201 BMP: Recent Labs 04/07/22 1049 NA 139 K 3.3* CL 104 CO2 28 BUN 9 CREATININE 0.60 GLUCOSE 107* COAGS: Recent Labs 04/07/22 0330 04/07/22 1748 APTT -- 28.1 INR 2.9 1.4 RADIOLOGY: CT ABDOMEN PELVIS W IV CONTRAST Additional Contrast? Oral Final Result Postsurgical change within the region of the stomach and proximal small bowel with a prominent contrast filled loop of small bowel in the left mid abdomen. Compared to prior exam there appears to be an internal hernia in the mid abdomen involving omentum and small bowel loops herniating anteriorly resulting in a degree of partial obstruction of the above-mentioned small bowel loop. This hernia may be best visualized on the sagittal and coronal images. Charity Bowen MD 04/08/22, 7:30 AM Attending Note PO day #1 s/p lysis adhesive band; advance diet and likely discharge. Will restart Coumadin I have reviewed the above TECSS note(s) and I either performed the bernard elements of the medical history and physical exam or was present with the resident when the bernard elements of the medical history and physical exam were performed. I have discussed the findings, established the care plan and recommendations with Resident, NORBERTO RN, bedside nurse. Jazmyn Pro MD 04/08/2022 10:12 AM Glasses, hearing aids, gold earrings and silver ring placed in blue container and left at bedside per patient request. FFP not ready d/t thaw time per blood bank. Attempted 2nd IV for FFP, no success x3. Pre-op aware. Vitamin K and Lactated Ringers = compatible via [employer] documented in this encounter [facility] [employer] Phone: 04-07-2022 Hospital Discharg e instructions Korin Fermin RN - 04/07/2022 4:40 PM EDT Charity Rod MD - 04/08/2022 Surgery Patient Discharge Instructions Discharge Date: 04/08/2022 Discharged To: Home RESUME ACTIVITY: WOUND CARE: Skin glue used, do not peel off, allow to fall off naturally. BATHING: Ok to shower DRIVING: No driving for while on pain medication RETURN TO WORK: No lifting more than 10 pounds WALKING: Yes LIFTING: Avoid lifting objects heavier than 10 lbs for 4 weeks. DIET: Ok to resume regular diet. SPECIAL INSTRUCTIONS: After you leave the hospital, call your doctor if any of the following occurs: Pain or symptoms that worsen Other new symptoms Signs of infection, including fever and chills Nausea and/or vomiting that you can't control with the medications you were given Pain that you can't control with the medications you've been given Excessive tenderness or swelling Changes in bowel or sexual function Dizziness or lightheadedness Rash or hives Watch for signs of infection: Excessive warmth or bright redness around your incisions Leakage of bloody or cloudy fluid from you incisions Fever over 100.5 Okay to resume home Coumadin, follow up with Coumadin Clinic 04/09 documented in this encounter [employer] Work Phone: 08-28-2021 Note PROCEDURE: XR Hand C omplete Right HISTORY: Right Hand Pain ; limited range of motion specifically involving second and third digits COMPARISON: None. FINDINGS: BONES:Small degenerative osteophytes along the dorsal margins of the interphalangeal joints of all 5 digits. No fracture, dislocation, bone lesion. Multifocal mild joint space narrowing, greatest involving the second third metacarpal phalangeal joints. SOFT TISSUES:No visible soft tissue swelling. EFFUSION:None visible. OTHER: Negative. IMPRESSION: 1. Multifocal mild degenerative changes most suggestive of osteoarthritis. Final Dictated by: Andre Dudley MD Dictated DT/TM: 08/28/21 3:29 Signed (Electronic Signature): Andre Dudley MD 08/28/21 3:33 pm Technologist: [facility] Evaluation note Diagnosis Essential hypertension Unspecified essential hypertension Hyperlipidemia, unspecified hyperlipidemia type S/P gastric bypass Bariatric surgery status Arthritis Arthropathy, unspecified, site unspecified History of pulmonary embolism Personal history of pulmonary embolism Overweight (BMI 25.0-29.9) Overweight History of repair of hiatal hernia Vitamin D deficiency Unspecified vitamin D deficiency documented in this encounter [employer] Phone: evaluation note* Diagnosis Diuretic-induced hypokalemia Hypopotassemia documented in this encounter [employer] Phone: evaluation note* Diagnosis Small bowel obstruction (HCC)- Primary Unspecified intestinal obstruction SBO (small bowel obstruction) (HCC) Unspecified intestinal obstruction Intestinal obstruction, unspecified cause, unspecified whether partial or complete (HCC) S/P laparoscopic surgery Other postprocedural status documented in this encounter [facility] [employer] Phone: evaluation note* Diagnosis Personal history of pulmonary embolism documented in this encounter [facility]* Diagnosis Primary insomnia- Primary Persistent disorder of initiating or maintaining sleep Essential hypertension (CMS/HCC) Unspecified essential hypertension Moderate episode of recurrent major depressive disorder (HCC) (CMS/HCC) Class 1 obesity without serious comorbidity with body mass index (BMI) of 33.0 to 33.9 in adult, unspecified obesity type Depression with anxiety Dysthymic disorder documented in this encounter [facility]* Diagnosis Onset Date Resolution Status Primary osteoarthritis of right hip acute Primary osteoarthritis of right knee acute Right knee pain [facility] Work Phone: Evaluation note* Diagnosis Onset Date Resolution Status Primary osteoarthritis of right hip acute Primary osteoarthritis of right knee acute Right knee pain acute Primary osteoarthritis of right hip acute [facility] Work Phone: Evaluation note* Diagnosis Onset Date Resolution Status Primary osteoarthritis of right hip acute Primary osteoarthritis of right knee acute Right knee pain acute Primary osteoarthritis of right hip acute Primary osteoarthritis of right knee acute [facility] Work Phone: Evaluation note* Diagnosis Onset Date Resolution Status Lymphedema of both lower extremities acute Primary osteoarthritis of right hip acute [facility] Work Phone: Assessments Diagnosis Obstructive sleep apnea Obstructive sleep apnea (adult) (pediatric) Essential hypertension Unspecified essential hypertension Morbid obesity (HCC) Morbid obesity Diagnosis Obstructive sleep apnea Obstructive sleep apnea (adult) (pediatric) Essential hypertension Unspecified essential hypertension Morbid obesity (HCC) Morbid obesity Diagnosis S/P bariatric surgery Bariatric surgery status Diagnosis Swelling of calf Swelling of limb Diagnosis Multiple subsegmental pulmonary emboli without acute cor pulmonale Pulmonary embolism and infarction (HCC) Other pulmonary embolism and infarction Hypothyroidism Unspecified hypothyroidism HLD (hyperlipidemia) Other and unspecified hyperlipidemia S/P bariatric surgery Bariatric surgery status Electrolyte disturbance Electrolyte and fluid disorders not elsewhere classified Diagnosis S/P bariatric surgery Bariatric surgery status Essential hypertension Unspecified essential hypertension Hypothyroidism, unspecified type Advance Directives Documents on File Type Date Recorded Patient Plate Preparer Expl anation Advance Directives and Living Will Power of Real Estate Sales Associate Documents on File Type Date Recorded Patient Plate Preparer Expl anation Advance Directives and Living Will Power of Real Estate Sales Associate Latest Code Status on File Code Status Date Activated Date Inactivated Comments Full Code 04/28/2020 12:29 PM Latest Code Status on File Code Status Date Activated Date Inactivated Comments Full Code 04/28/2020 12:29 PM Latest Code Status on File Code Status Date Activated Date Inactivated Comments Full Code 04/28/2020 12:29 PM 04/29/2020 9:01 PM Documents on File Type Date Recorded Patient Plate Preparer Expl anation ACP-Advance Directive ACP-Power of Real Estate Sales Associate Latest Code Status on File Code Status Date Activated Date Inactivated Comments Full Code 05/30/2020 4:57 PM Full Code 04/28/2020 12:29 PM 04/29/2020 9:01 PM Latest Code Status on File Code Status Date Activated Date Inactivated Comments Full Code 05/30/2020 4:57 PM 05/31/2020 6:15 PM Latest Code Status on File Code Status Date Activated Date Inactivated Comments Full Code 04/07/2022 12:25 PM Full Code 05/30/2020 4:57 PM 05/31/2020 6:15 PM Healthcare Agents on File Name Relationship Healthcare Agent Relationship Communication Sarita Sheila Child Primary Decision Maker nicholas Blairmary ellen Child Secondary Decision Make r Advance Directive Response Recorded Date/ Time Advance Directives No April 11 2:43pm Advance Directive Response Recorded Date/ Time Advance Directives No April 11 3:43pm Reason for Referral Status Reason Specialty Diagnoses / Procedures Referred By Contact Referred To Contact Closed Sleep Center Diagnoses Obstructive sleep apnea Essential hypertension Morbid obesity (HCC) Daytime sleepiness Snores Witnessed episode of apnea Procedures Baseline Diagnostic Sleep Study ID POLYSOM 6/>YRS SLEEP 4/> ADDL MARAH ATTND Sahniqua Pina, [address] [place] [address] [facility] [address] [place] [id number] Status Reason Specialty Diagnoses / Procedures Referre d By Contact Referred To Contact Closed Radiology Diagnoses Swelling of calf Procedures US DUP LOWER EXTREMITIES BILATERAL VENOUS Shaniqua Pina DO [address] [place] [address] Discharge Instructions * Instructions* Fay Lopez, RN - 04/28/2020 Discharge Instructions for Bariatric Surgery You had a Nury-en- Y Gastric Bypass surgery to treat obesity. Recovery from this surgery can take several weeks and requires permanent lifestyle changes. What You Will Need Protein Supplements Bariatric Vitamins Abdominal Binder Incentive spirometer (a breathing device) Home Care It is important to keep the incisions clean and dry to promote healing. Shower with soap and rinse and dry thoroughly. If incisions are oozing, you may cover with clean gauze. Use the incentive spirometer every couple of hours. This is to make sure you are breathing deeply and keeping the air sacs within your lungs as open as possible to prevent respiratory problems. Diet It is important to follow the diet progression very closely in order to prevent complications. When arriving home, follow the Phase 1A Liquid Diet for two weeks. Dehydration and changes in bowelhabits can occur after surgery. Refer to your educational binder provided pre-op for additional information. Once you move to solids, food must be chewed well. When making food choices, you'll need to ensure adequate protein intake, while avoiding sweets and fatty foods. Eating too much or too quickly can cause vomiting or intense pain under your breastbone. Most people quickly learn how much food they can tolerate. Physical Activity When home, we recommend that you take frequent walks, as tolerated, to prevent complications and increase your endurance. Ask your doctor when you will be able to return to work. You may need to wait 2- [address] you are no longer using pain medications Do not lift anything over ten pounds for 4 weeks. Medications Remember to avoid aspirin, aspirin-containing products, and nonsteroidal anti- inflammatory drugs (NSAIDs, such as ibuprofen, naproxen, etc.). If you were taking these medications before the procedure, and had to stop, ask your doctor when you can resume taking them. Be sure to review your medications with your primary care provider at yourfollow up office visit. Lifestyle Changes Changing your diet and level of activity are the biggest lifestyle changes associated with your success. Be aware that you may have emotional ups and downs after this surgery. Follow-up Follow up with your primary care physician in one week. Follow up with Dr. Pina in 1 week. If you don't already have a scheduled appointment, please call the office at [phone]. Call Your Doctor If Any of the Following Occurs Monitor your recovery once you leave the hospital. If any of the following occur, call your doctor: Signs of infection, including fever above 100F Redness, swelling, increasing pain, excessive bleeding, or any discharge from the incision site Persistent nausea and/or vomiting Pain that you can't control with the medications you've been given Shortness of breath and/or chest pain Tachycardia (racing heart sensation) unrelieved by rest Pain, redness and/or swelling in your feet or legs Sudden onset of severe left shoulder pain or severe abdominal pain Any symptoms that are causing you concern In case of an emergency, call 911 immediately. Rectus Block Instructions What is a nerve block and how does it work? Nerves control movement, pain and normal sensation. The Anesthesiologist has administered a local anesthetic medication to block normal sensations in the desired nerve ( s). The nerve block can causefeelings such as tingling or numbness in your abdomen. How long will the nerve block last? The nerve block can last anywhere from 2-48 hours depending on the medications used. Normal sensation will gradually return. Frequently, weakness goes away first, then numbness or tingling, followed by the return of the feeling of pain. However these feelings can return in any order. It usually takes 60 minutes for sensation to fully return once the nerve block starts to wear off. If the block does not wear off in 48 hours call the anesthesia department at [phone]. Will you need pain medication? The nerve block is only one of many forms of pain relief available. If your surgeon has prescribed oral pain medication, then take it as prescribed as the numbness starts to wear off or at the first sign of pain to keep the pain from getting out of control once the block is gone. If you have questions or concerns after receiving a nerve block please phone the Anesthesiology Department at [phone]. 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 * Lenora Gabriel RCP - 04/29/2020 8:39 AM EDT BRONCHOSPASM/BRONCHOCONSTRICTION [x] IMPROVE AERATION/BREATH SOUNDS [x] ADMINISTER BRONCHODILATOR THERAPY APPROPRIATE [x] ASSESS BREATH SOUNDS [] IMPLEMENT AEROSOL/MDI PROTOCOL [x] PATIENT EDUCATION NEEDED * Fay Lopez RN - 04/28/2020 8:47 AM EDT [id number] Dr Sargent to the bedside, time out performed, Pt monitored, 02, Edi Rectus Sheath nerve block completed using Bupivacaine, 0.5% 20 ml to each side, pt tolerated procedure well, Site CDI, (seecharting), VSS, Versed Given: 2 mg Fentanyl 50 mcg Pt denies co pain or discomfort, daughter to the waiting room * Kathy Rose RN - 04/28/2020 6:[address] rodriguez notified of k 2.8. states that's fine . No orders received. documented in this encounter* Leidarina Jazmyn - 05/31/2020 2:55 PM EDT CLINICAL PHARMACY NOTE: MEDS TO [facility] Select Patient?: No Total # of Prescriptions Filled: 3 The following medications were delivered to the patient: Eliquis Starter Pack Potassium Chloride 20 MEQ Hydrocodone-Acetaminophen 5mg/325mg Total # of Interventions Completed: 1 Time Spent (min): 30 Additional Documentation: Combined Eliquis scripts into a starter pack * Katherine West, PT - 05/31/2020 9:46 AM EDT Physical Therapy Facility/Department: [place] [address] Initial Assessment NAME: Alfredo Sosa : 1955 Date of Service: 05/31/2020 Discharge Recommendations: Home independently Assessment Body structures, Functions, Activity limitations: Decreased functional mobility ;Decreased strength;Decreased safe awareness;Decreased endurance Assessment: Patient is doing well, ambulated 175' no device, SBA. Will continue to treat while patient is in-house for gait and stairs. Prognosis: Good Decision Making: Low Complexity Clinical Presentation: stable PT Education: Goals;General Safety;Gait Training;PT Role;Plan of Care;Transfer Training;Functional Mobility Training REQUIRES PT FOLLOW UP: Yes Activity Tolerance Activity Tolerance: Patient Tolerated treatment well Patient Diagnosis(es): The encounter diagnosis was Multiple subsegmental pulmonary emboli without acute cor pulmonale. Acute DVT has a past medical history of Arthritis, GERD (gastroesophageal reflux disease), High cholesterol, History of migraine headaches, Hypertension, Limitation of joint motion, Muscle weakness, Obesity, Sleep apnea, Thyroid disease, and Wellness examination. has a past surgical history that includes Upper gastrointestinal endoscopy (N/A, 07/27/2019); Nury-en-Y Gastric Bypass (04/28/2020); and Nury-en-Y Gastric Bypass (N/A, 04/28/2020). Restrictions Position Activity Restriction Other position/activity restrictions: Acute DVT diagnosed 05/30 11am, started Elliquis 05/30 130pm, orders: ok to ambulate . Just had Nury-en-Y gastric bypass sx 04/28/20 Vision/Hearing Vision: Within Functional Limits Hearing: Within functional limits Subjective General Chart Reviewed: Yes Patient assessed for rehabilitation services?: Yes Family / Caregiver Present: No Follows Commands: Within Functional Limits Pain Screening Patient Currently in Pain: Denies Vital Signs Pulse: 90 Patient Currently in Pain: Denies Oxygen Therapy SpO2: 96 % O2 Device: None (Room air) Orientation Orientation Overall Orientation Status: Within Functional Limits Social/Functional History Social/Functional History Lives With: Son Type of Home: House Home Layout: Two level, Able to Live on Main level with bedroom/bathroom Home Access: Stairs to enter without rails Entrance Stairs - Number of Steps: 4 Entrance Stairs - Rails: None(Two majo which she can support on) Bathroom Shower/Tub: Walk-in shower ADL Assistance: Independent Ambulation Assistance: Independent Transfer Assistance: Independent Mode of Transportation: Car Additional Comments: She owns no gait devices. As she's been recovering from abdominal sx, she's been able to amb community distances no device. Cognition Cognition Overall Cognitive Status: WFL Objective Observation/Palpation Observation: Multiple abdomen incisions, healed closed. Strength RLE Strength RLE: WFL Strength LLE Strength LLE: WFL Comment: Left knee arthritic, but functional strength is maintained. Bed mobility Supine to Sit: Modified independent Sit to Supine: Modified independent Transfers Sit to Stand: Stand by assistance Stand to sit: Stand by assistance Ambulation Ambulation?: Yes Ambulation 1 Surface: level tile Device: No Device Assistance: Stand by assistance Quality of Gait: gait speed appropriate for context Gait Deviations: None Distance: 175' Balance Standing - Static: Fair;+ Standing - Dynamic: Fair;+ Plan Plan Times per week: 5-6x/week Current Treatment Recommendations: Balance Training, Functional Mobility Training, Gait Training, Stair training, Patient/Caregiver Education & Training, Safety Education & Training Safety Devices Type of devices: Left in chair, Call light within reach, Nurse notified, Gait belt, All fall risk precautions in place AM-PAC Score AM-PAC Inpatient Mobility Raw Score : 22 (05/31/20 6048) AM-PAC Inpatient T-Scale Score : 53.28 (05/31/20946) Mobility Inpatient CMS 0-100% Score: 20.91 (05/31/20946) Mobility Inpatient CMS G-Code Modifier : CJ (05/31/20946) Goals Short term goals Time Frame for Short term goals: 14 visits Short term goal 1: Ambulate 300' no AD with supervision. Short term goal 2: Negotiate up and down 4 steps without railings CGA Patient Goals Patient goals : Go home Therapy Time Individual Concurrent Group Co-treatment Time In 850 Time Out 09 Minutes 38 Timed Code Treatment Minutes: 25 Minutes Katherine West PT * Mary Kate Eisenberg MD - 05/31/2020 9:22 AM EDT [facility] Office: [phone] Venkata Mckeon DO, Tito Steven DO, Carlos Pascual DO, Greg Garrison DO, Stefan Ayala MD, Carley Villela MD, Silviano Garcia MD, Mary Kate Eisenberg MD, Ruddy Serrano MD, Angela Joseph MD, MD Bakari, Joshua Simms MD, Ad Azul MD, Rolando Mcduffie DO, Yuriy Pedersen MD, Nyasia Villagran MD, Robert Corona DO, El Cabrera MD, Orlando Vang DO, Dave Ugalde MD, MD Zuri, Jessica Evans CNP, Camryn Peters CNP, Regi Thomas STEM SETTER, Saundra Pizarro, DIE FINISHER,Robin Oswald, STEM SETTER, Antoinette Quiñones STEM SETTER, Mariana Evans STEM SETTER, Sofía Kinsey STEM SETTER, Silviano Darling CNP, Jam Jiménez PA-C, Radha Baker, HUGO, Daniela Casillas, STEM SETTER, Noreen Everett, STEM SETTER, Yadira French, STEM SETTER, Sienna Mckeon, STEM SETTER, Kaylyn Cheek, STEM SETTER [facility] IN-PATIENT SERVICE [facility] Progress Note 05/31/2020 9:22 AM Name: Alfredo Sosa Acct: [id number] Room: Day: 1 Admit Date: 05/30/2020 1:11 AM PCP: Cathy Rangel Code Status: Full Code Subjective: C/C: Chief Complaint Patient presents with Abdominal Pain Interval History Status: improved. Patient seen and examined at bedside, no acute events overnight. Continue to improve overall with better breathing., her chest pain improved Was walking with PT Lower extremity Doppler was acute right popliteal vein DVT Echo with some evidence of RV strain. Potassium still needs to be replaced Patient vitals, labs and all providers notes were reviewed,from overnight shift and morning updateswere noted and discussed with the nurse Brief History: Patient with recent history of bariatric surgery Nury-en-Y beginning of April that presented with acute onset shortness of breath and right-sided chest pain that was progressing and prompted her to come to ER where she was found to have bilateral segmental and subsegmental PE with right middle posterior infarction and no evidence of right ventricular strain. Also found to have severe hypokalemia Continues with Rt sided ain with deep breathing She was a started on heparin and admitted for further management. Review of Systems: Constitutional: negative for chills, fevers, sweats Respiratory: negative for cough, dyspnea on exertion, shortness of breath, wheezing Cardiovascular: negative for chest pain, chest pressure/discomfort, lower extremity edema, palpitations Gastrointestinal: negative for abdominal pain, constipation, diarrhea, nausea, vomiting Neurological: negative for dizziness, headache Medications: Allergies: No Known Allergies Current Meds: Scheduled Meds: pantoprazole 20 mg Oral Daily acetaminophen 650 mg Oral BID atorvastatin 20 mg Oral Daily levothyroxine 125 mcg Oral Daily oxybutynin 5 mg Oral BID sodium chloride flush 10 mL Intravenous 2 times per day apixaban 10 mg Oral BID Continuous Infusions: PRN Meds: sodium chloride flush, potassium chloride OR potassium alternative oral replacement OR potassium chloride, magnesium sulfate, acetaminophen OR acetaminophen, polyethylene glycol, promethazine OR ondansetron, nicotine, HYDROcodone 5 mg - acetaminophen Data: Past Medical History: has a past medical history of Arthritis, GERD (gastroesophageal reflux disease), High cholesterol, History of migraine headaches, Hypertension, Limitation of joint motion, Muscle weakness, Obesity, Sleep apnea, Thyroid disease, and Wellness examination. Social History: reports that she has never smoked. She has never used smokeless tobacco. She reports that she does not drink alcohol or use drugs. Family History: Family History Problem Relation Age of Onset Cancer Father Heart Disease Father Vitals: BP 117/70 Pulse 70 Temp 98.4 F (36.9 C) (Oral) Resp 14 Ht 5' 9 (1.753 m) Wt 218 lb 4.1 oz (99 kg) LMP 04/28/2005 SpO2 94% BMI 32.23 kg/m Temp (24hrs), Av F (36.7 C), Min:97.6 F (36.4 C), Max:98.4 F (36.9 C) No results for input(s): POCGLU in the last 72 hours. I/O (24Hr): Intake/Output Summary (Last 24 hours) at 05/31/2020 09 Last data filed at 05/30/2020 2200 Gross per 24 hour Intake 240 ml Output Net 240 ml Labs: Hematology: Recent Labs 05/30/20 0350 05/30/20 0607 05/31/20 0558 WBC 9.7 8.6 7.4 RBC 4.94 4.66 4.81 HGB 13.1 12.7 13.2 HCT 41.3 39.6 44.8 MCV 83.6 85.0 93.1 MCH 26.5 27.3 27.4 MCHC 31.7 32.1 29.5 RDW 13.2 13.2 13.5 PLT 159 156 153 MPV 11.9 12.2 12.2 INR -- -- 1.2 Chemistry: Recent Labs 05/30/20 0138 05/30/20 0350 05/30/20 1215 05/31/20 0558 NA 133* -- -- 134* K 2.8* -- 3.3* 3.2* CL 90* -- -- 99 CO2 26 -- -- 23 GLUCOSE 131* -- -- 103* BUN 10 -- -- 5* CREATININE 0.61 -- -- 0.46* MG -- -- -- 2.0 ANIONGAP 17 -- -- 12 LABGLOM >60 -- -- >60 GFRAA >60 -- -- >60 CALCIUM 9.8 -- -- 8.6 PROBNP 51 -- -- -- TROPHS 11 11 -- -- Recent Labs 05/30/20 0138 PROT 7.9 LABALBU 4.1 AST 21 ALT 13 ALKPHOS 84 BILITOT 1.02 BILIDIR 0.31* ABG:No results found for: POCPH, PHART, PH, POCPCO2, HAC9RXC, PCO2, POCPO2, PO2ART, PO2, POCHCO3, ARV7TFR, HCO3, NBEA, PBEA, BEART, BE, THGBART, THB, BJB9NHV, FGXN1ZLC, Y0QQARTZ, O2SAT, FIO2 No results found for: SPECIAL No results found for: CULTURE Radiology: Ct Abdomen Pelvis W Iv Contrast Additional Contrast? Oral Result Date: 05/30/2020 Extensive segmental/subsegmental bilateral pulmonary emboli. Small pulmonary infarct right upper lobe posterior segment. Gastric and small bowel sutures appear intact. Findings were discussed with ACOSTA RODRIGUEZ at 3:39 am on 05/30/2020. Ct Chest Pulmonary Embolism W Contrast Result Date: 05/30/2020 Extensive segmental/subsegmental bilateral pulmonary emboli. Small pulmonary infarct cited small pulmonary infarct on right heart strain on echocardiogram: Patient continued to be not hypoxic, stablevitals no elevation in troponin or BNP discussed with vascular team Dr. Llamas, not a candidate for any thrombectomy okay for anticoagulation upper lobe posterior segment. Gastric and small bowel sutures appear intact. Findings were discussed with ACOSTA RODRIGUEZ at 3:39 am on 05/30/2020. Physical Examination: General appearance: alert, cooperative and no distress Mental Status: oriented to person, place and time and normal affect Lungs: clear to auscultation bilaterally, normal effort Heart: regular rate and rhythm, no murmur Abdomen: soft, nontender, nondistended, normal bowel sounds, no masses, hepatomegaly, splenomegaly Extremities: no edema, redness, tenderness in the calves Skin: no gross lesions, rashes, induration Assessment: Hospital Problems Last Modified POA * (Principal) Pulmonary embolism and infarction (HCC) 05/30/2020 Yes HLD (hyperlipidemia) 05/30/2020 Yes Hypothyroidism 05/30/2020 Yes S/P bariatric surgery 05/30/2020 Yes Electrolyte disturbance 05/30/2020 Yes Plan: Bilateral segmental and subsegmental pulmonary embolism with R sided pulmonary infarct and RV strain on echocardiogram: Discussed with vascular surgeon Dr. Webb , overall stable ( no hypoxia, Normal BNP, and not a candidate for thrombectomy continues anticoagulation for minimum of 6 months Acute right-sided popliteal vein DVT present on admission: On anticoagulation Status post bariatric surgery Nury-en-Y Hypokalemia persistent since admission: Discussed with bariatric surgery will send home home supplement. Hypothyroidism continue supplement. DC planning Med rec done Scripts added 30+ minutes spent Mary Kate Eisenberg MD 05/31/2020 9:22 AM * Naresh Lo RN - 05/30/2020 4:40 PM EDT Patient transferred onto the unit of CAR2. Oriented to room, call light use, and fall precautions. Refer to POC for full assessment. * Sreedhar Ralph - 05/30/2020 1:06 PM EDT Echo done in echo lab. * Noreen Patterson DO - 05/30/2020 4:10 AM EDT General Surgery Progress Note PATIENT NAME: Alfredo Sosa DATE OF : 1955 ADMISSION DATE: 05/30/2020 1:11 AM Admitting Provider: @ADMPROVIDER@ TODAY'S DATE: 05/30/2020 Chief Complaint: Chest pain with deep inspiration HISTORY OF PRESENT ILLNESS: The patient is a 65 y.o. female S/p Laparoscopic robotic gastric bypass nury-en-y, hiatal hernia repair with Dr. Roe Pina on 04/28/2020, presents to the ED with Right side chest pain with deep inspiration. Pt presented to 2 week FU with complaint of lower extremity edema, and subsequent LE Dopplernegative for DVT. Pt presents today with SOB and right sided chest and rib pain with deep inspiration. Pt reports not on home AC currently. Pt reports otherwise doing well s/p surgery, tolerating bariatric diet, urinating well, having BM. Past Medical History: Past Medical History Diagnosis Date Arthritis GERD (gastroesophageal reflux disease) High cholesterol History of migraine headaches Hypertension Limitation of joint motion Muscle weakness Obesity Sleep apnea no cpap Thyroid disease Wellness examination pcp-Dr Rangel-last visit february 2020 Past Surgical History: Past Surgical History Procedure Laterality Date NURY-EN-Y GASTRIC BYPASS 04/28/2020 LAPAROSCOPIC ROBOTIC GASTRIC BYPASS NURY-EN-Y, HIATAL HERNIA REPAIR NURY-EN-Y GASTRIC BYPASS N/A 04/28/2020 XI LAPAROSCOPIC ROBOTIC GASTRIC BYPASS NURY-EN-Y, HIATAL HERNIA REPAIR performed by Shaniqua Pina DO at [facility] OR UPPER GASTROINTESTINAL ENDOSCOPY N/A 07/27/2019 EGD BIOPSY performed by Shaniqua Pina DO at [facility] OR Medications Prior to Admission: Prescriptions Prior to Admission Not in a hospital admission. Allergies: Patient has no known allergies. Social History: Social History Socioeconomic History Marital status: Single Spouse name: Not on file Number of children: Not on file Years of education: Not on file Highest education level: Not on file Occupational History Not on file Social Needs Financial resource strain: Not on file Food insecurity Worry: Not on file Inability: Not on file Transportation needs Medical: Not on file Non-medical: Not on file Tobacco Use Smoking status: Never Smoker Smokeless tobacco: Never Used Substance and Sexual Activity Alcohol use: Never Frequency: Never Drug use: Never Sexual activity: Not on file Lifestyle Physical activity Days per week: Not on file Minutes per session: Not on file Stress: Not on file Relationships Social connections Talks on phone: Not on file Gets together: Not on file Attends mormon service: Not on file Active member of club or organization: Not on file Attends meetings of clubs or organizations: Not on file Relationship status: Not on file Intimate partner violence Fear of current or ex partner: Not on file Emotionally abused: Not on file Physically abused: Not on file Forced sexual activity: Not on file Other Topics Concern Not on file Social History Narrative Not on file Family History: Family History Problem Relation Age of Onset Cancer Father Heart Disease Father REVIEW OF SYSTEMS: CONSTITUTIONAL: Denies recent weight loss, fatigue, fevers, chills. HEENT: No rhinorrhea, dysphagia, odynphagia. CARDIOVASCULAR: No history of NV, recent chest pain. RESPIRATORY: Denies shortness of breath, COPD, asthma. GASTROINTESTINAL: denies N/V GENITOURINARY: Denies increased frequency or dysuria. HEMATOLOGIC/LYMPHATIC: Denies history of anemia or DVTs. ENDOCRINE: Denies history of thyroid problems or diabetes. NEUROLOGIC: Denies history of CVA, TIA. Review of systems negative unless listed above. PHYSICAL EXAM: VITALS: BP 120/72 Pulse 73 Temp 99 F (37.2 C) (Oral) Resp 15 Ht 5' 9 (1.753 m) Wt 218 lb(98.9 kg) LMP 04/28/2005 SpO2 91% BMI 32.19 kg/m INTAKE/OUTPUT: No intake or output data in the 24 hours ending 05/30/20 0412 CONSTITUTIONAL: awake, alert, not distressed and mildly obese ENT: normocephalic/atraumatic, without obvious abnormality NECK: supple, symmetrical, trachea midline LUNGS: Unlabored breathing CARDIOVASCULAR: regular rate and rhythm ABDOMEN: obese, soft, non-distended, without TTP. Surgical incisions well approximated and secured with surgical glue. No drainage, bleeding. MUSCULOSKELETAL: Muscle strength intact in all extremities bilaterally. NEUROLOGIC: CN II- XII intact. Gross motor intact without focal weakness. SKIN: No cyanosis, rashes, or edema noted. CBC with Differential: Lab Results Component Value Date WBC 9.7 05/30/2020 RBC 4.94 05/30/2020 HGB 13.1 05/30/2020 HCT 41.3 05/30/2020 PLT 159 05/30/2020 MCV 83.6 05/30/2020 MCH 26.5 05/30/2020 MCHC 31.7 05/30/2020 RDW 13.2 05/30/2020 LYMPHOPCT 15 05/30/2020 MONOPCT 12 05/30/2020 BASOPCT 1 05/30/2020 MONOSABS 1.23 05/30/2020 LYMPHSABS 1.54 05/30/2020 EOSABS 0.21 05/30/2020 BASOSABS 0.09 05/30/2020 DIFFTYPE NOT REPORTED 05/30/2020 CMP: Lab Results Component Value Date NA 133 05/30/2020 K 2.8 05/30/2020 CL 90 05/30/2020 CO2 26 05/30/2020 BUN 10 05/30/2020 CREATININE 0.61 05/30/2020 GFRAA >60 05/30/2020 LABGLOM >60 05/30/2020 GLUCOSE 131 05/30/2020 PROT 7.9 05/30/2020 LABALBU 4.1 05/30/2020 CALCIUM 9.8 05/30/2020 BILITOT 1.02 05/30/2020 ALKPHOS 84 05/30/2020 AST 21 05/30/2020 ALT 13 05/30/2020 BMP: Lab Results Component Value Date NA 133 05/30/2020 K 2.8 05/30/2020 CL 90 05/30/2020 CO2 26 05/30/2020 BUN 10 05/30/2020 LABALBU 4.1 05/30/2020 CREATININE 0.61 05/30/2020 CALCIUM 9.8 05/30/2020 GFRAA >60 05/30/2020 LABGLOM >60 05/30/2020 GLUCOSE 131 05/30/2020 LDH: No results found for: LDH PT/INR: Lab Results Component Value Date PROTIME 9.6 04/14/2020 INR 0.9 04/14/2020 Warfarin PT/INR: No components found for: PTPATWAR, PTINRWAR PTT: Lab Results Component Value Date APTT 25.7 05/30/2020 [APTT} Pertinent Radiology: Ct Abdomen Pelvis W Iv Contrast Additional Contrast? Oral Result Date: 05/30/2020 Extensive segmental/subsegmental bilateral pulmonary emboli. Small pulmonary infarct right upper lobe posterior segment. Gastric and small bowel sutures appear intact. Findings were discussed with ACOSTA RODRIGUEZ at 3:39 am on 05/30/2020. Ct Chest Pulmonary Embolism W Contrast Result Date: 05/30/2020 Extensive segmental/subsegmental bilateral pulmonary emboli. Small pulmonary infarct right upper lobe posterior segment. Gastric and small bowel sutures appear intact. Findings were discussed with ACOSTA RODRIGUEZ at 3:39 am on 05/30/2020. ASSESSMENT: Active Hospital Problems Diagnosis Date Noted Pulmonary embolism and infarction (HCC) [I26.99] 05/30/2020 1. B/L PE s/p bariatric surgery Plan: 1. No surgical intervention at this time 2. Okay for anticoagulation 3. Medicine to admit 4. Minimally invasive surgery will need to follow documented in this encounter Hospital Course * Mary Kate Eisenberg MD - 05/31/2020 2:14 PM EDT [facility] Office: [phone] Venkata Mckeon DO, Tito Steven DO, Carlos Pascual DO, Greg Garrison DO, Stefan Ayala MD, Carley Villela MD, Silviano Garcia MD, Mary Kate Eisenberg MD, Ruddy Serrano MD, Angela Joseph MD, MD Bakari, Joshua Simms MD, Ad Azul MD, Rolando Mcduffie DO, Yuriy Pedersen MD, Nyasia Villagran MD, Robert Corona DO, El Cabrera MD, Orlando Vang DO, Dave Ugalde MD, MD Zuri, Jessica Evans, STEM SETTER, Camryn Peters, STEM SETTER, Regi Thomas, STEM SETTER, Saundra Pizarro, [facility],Robin Oswald, STEM SETTER, Antoinette Quiñones, STEM SETTER, Mariana Evans, STEM SETTER, Sofía Kinsey, STEM SETTER, Silviano Darling, STEM SETTER, Jam Jiménez PA-C, Radha Baker, HUGO, Daniela Casillas, STEM SETTER, Noreen Everett, STEM SETTER, Yadira French, STEM SETTER, Sienna Mckeon, STEM SETTER, Kaylyn Cheek, STEM SETTER [facility] IN-PATIENT SERVICE [facility] Discharge Summary Patient ID: Alfredo Sosa : 1955 ACCOUNT: [id number] Patient's PCP: Cathy Rangel Admit Date: 05/30/2020 Discharge Date: 05/31/2020 Length of Stay: 1 Code Status: Full Code Admitting Physician: Mary Kate Eisenberg MD Discharge Physician: Mary Kate Eisenberg MD Active Discharge Diagnoses: Hospital Problem Lists: Principal Problem: Pulmonary embolism and infarction (HCC) Active Problems: HLD (hyperlipidemia) Hypothyroidism S/P bariatric surgery Electrolyte disturbance Resolved Problems: * No resolved hospital problems. * Admission Condition: fair Discharged Condition: good Hospital Stay: Hospital Course: Patient with recent history of bariatric surgery Nury-en-Y beginning of April that presented with acute onset shortness of breath and right-sided chest pain that was progressing and prompted her to come to ER where she was found to have bilateral segmental and subsegmental PE with right middle posterior infarction and no evidence of right ventricular strain on imaging but found later in echo Also found to have severe hypokalemia She was a started on heparin and admitted for further management. During the admission patient was managed as follow Bilateral segmental and subsegmental pulmonary embolism with R sided pulmonary infarct and RV strain on echocardiogram: Discussed with vascular surgeon Dr. Webb , overall stable ( no hypoxia, Normal BNP, and not a candidate for thrombectomy continues anticoagulation for minimum of 6 months Eliquis started in house and was discharged on it Acute right-sided popliteal vein DVT present on admission: On anticoagulation Status post bariatric surgery N[place]-en-Y Hypokalemia persistent since admission: Discussed with bariatric surgery will send home home supplement. Hypothyroidism continue supplement. DC planning Med rec done Scripts added 30+ minutes spent Significant therapeutic interventions: Significant Diagnostic Studies: Radiology: Ct Abdomen Pelvis W Iv Contrast Additional Contrast? Oral Result Date: 05/30/2020 Extensive segmental/subsegmental bilateral pulmonary emboli. Small pulmonary infarct right upper lobe posterior segment. Gastric and small bowel sutures appear intact. Findings were discussed with ACOSTA RODRIGUEZ at 3:39 am on 05/30/2020. Ct Chest Pulmonary Embolism W Contrast Result Date: 05/30/2020 Extensive segmental/subsegmental bilateral pulmonary emboli. Small pulmonary infarct right upper lobe posterior segment. Gastric and small bowel sutures appear intact. Findings were discussed with ACOSTA RODRIGUEZ at 3:39 am on 05/30/2020. Consultations: Consults: Final Specialist Recommendations/Findings: IP CONSULT TO BARIATRICS IP CONSULT TO HOSPITALIST IP CONSULT TO VASCULAR SURGERY IP CONSULT TO BARIATRICS The patient was seen and examined on day of discharge and this discharge summary is in conjunction with any daily progress note from day of discharge. Discharge plan: Disposition: Home Physician Follow Up: Cathy Rangel [address] [id number] Requiring Further Evaluation/Follow Up POST HOSPITALIZATION/Incidental Findings: Diet: regular diet Activity: As tolerated Instructions to Patient: Discharge Medications: Medication List START taking these medications * apixaban 5 MG Tabs tablet Commonly known as: Eliquis Take 2 tablets by mouth 2 times daily for 7 days * apixaban 5 MG Tabs tablet Commonly known as: Eliquis Take 1 tablet by mouth 2 times daily Start taking on: June 08, 2020 HYDROcodone-acetaminophen 5-325 MG per tablet Commonly known as: NORCO Take 1 tablet by mouth every 8 hours as needed for Pain for up to 3 days. potassium chloride 20 MEQ extended release tablet Commonly known as: KLOR-CON M Take 1 tablet by mouth daily * This list has 2 medication(s) that are the same as other medications prescribed for you. Read thedirections carefully, and ask your doctor or other care provider to review them with you. CONTINUE taking these medications acetaminophen 325 MG tablet Commonly known as: TYLENOL atorvastatin 20 MG tablet Commonly known as: LIPITOR levothyroxine 125 MCG tablet Commonly known as: SYNTHROID oxybutynin 5 MG tablet Commonly known as: DITROPAN pantoprazole 20 MG tablet Commonly known as: PROTONIX Take 1 tablet by mouth daily Where to Get Your Medications These medications were sent to [address] - [phone] - F [phone] [place], [place] [id number] potassium chloride 20 MEQ extended release tablet You can get these medications from any pharmacy Bring a paper prescription for each of these medications apixaban 5 MG Tabs tablet apixaban 5 MG Tabs tablet HYDROcodone-acetaminophen 5-325 MG per tablet No discharge procedures on file. Time Spent on discharge is 35 mins in patient examination, evaluation, counseling as well as medication reconciliation, prescriptions for required medications, discharge plan and follow up. Electronically signed by Mary Kate Eisenberg MD 05/31/2020 2:[address] Cathy Rangel for the opportunity to be involved in this patient's care. documented in this encounter Summary Purpose Family History No Family History Records FoundNo Family History Records FoundNo Family History Records FoundNo Family History Records FoundNo Family History Records FoundNo Family History Records Found Chief Complaint and Reason for Visit Chief Complaint CONSULT DR SOPHIA Manzo M25.561 - Pain in right knee Reason for Visit Primary osteoarthrit is of right hip Primary osteoarthritis of right knee Right knee pain Chief Complaint CONSULT DR SOPHIA Manzo M25.561 - Pain in right knee RIGHT INTRA-ARTICULAR HIP JOINT INJ/DS RECHECK RT HIP INCREASED PAIN M16.11 - Unilateral primary osteoarthritis, right Reason for Visit Primary osteoarthrit is of right hip Primary osteoarthritis of right knee Right knee pain Primary osteoarthritis of right hip Chief Complaint CONSULT DR SOPHIA Manzo M25.561 - Pain in right knee RIGHT INTRA-ARTICULAR HIP JOINT INJ/DS RECHECK RT HIP INCREASED PAIN M16.11 - Unilateral primary osteoarthritis, right Reason for Visit Primary osteoarthrit is of right hip Primary osteoarthritis of right knee Right knee pain Primary osteoarthritis of right hip Primary osteoarthritis of right knee Chief Complaint OP SP RT HIP PAIN Reason for Visit Lymphedema of both l ower extremities Primary osteoarthritis of right hip Chief Complaint OP SP RT HIP PAIN [id number] m81.0 m16.11 f17.200 OP SP RT HIP PAIN WANTS INJECTION Reason for Visit Lymphedema of both l ower extremities Primary osteoarthritis of right hip Additional Source Comments Reason for Visit (unrecogniz ed section and content) Reason Comments Apnea Status Reason Specialty Diagnoses / Procedures Referred By Contact Referred To Contact Closed Sleep Center Diagnoses Obstructive sleep apnea Essential hypertension Morbid obesity (HCC) Daytime sleepiness Snores Witnessed episode of apnea Procedures Baseline Diagnostic Sleep Study ID POLYSOM 6/>YRS SLEEP 4/> ADDL MARAH ATTND Shaniqua Pina DO [address] [facility] [address] [place] [address] [facility] [address] [place] [id number] Status Reason Specialty Diagnoses / Procedures Referre d By Contact Referred To Contact Diagnoses Morbid obesity (HCC) HTN (hypertension) GERD (gastroesophageal reflux disease) MORBID OBESITY, HTN, GERD Procedures ID LAP GASTRIC BYPASS/NURY-EN-Y LAPAROSCOPIC XI ROBOTIC GASTRIC BYPASS NURY-EN-Y, LIVER BIOPSY, EGD- GI UNIT SCHEDULED. Shaniqua Pina DO [address] [facility] [address] [place] [address] [facility] Status Reason Specialty Diagnoses / Procedures Referre d By Contact Referred To Contact Closed Radiology Diagnoses Swelling of calf Procedures US DUP LOWER EXTREMITIES BILATERAL VENOUS Shaniqua Pina DO [address] [facility] [address] [place] [address] Reason Comments Abdominal Pain Reason Comments Abdominal Pain SBO with left side a bdominal pain. tx from [facility] Specialty Diagnoses / Procedures Referred By Contpetros t Referred To Contact Diagnoses Small bowel obstruction (HCC) SBO (small bowel obstruction) (HCC) Jack Bell MD [address] [facility] [address] [place] [address] [facility] [address] [place] [address] Referral ID Status Reason Start Date Expiration Date Visits Re quested Visits Authorized [id number] 1 1 INFORMATION SOURCE (unrecogn ized section and content) DATE CREATED AUTHOR 01/14/2022 [facility] DATE CREATED AUTHOR AUTHOR'S ORGANIZ ATION 04/13/2022 [facility] DATE CREATED AUTHOR AUTHOR'S ORGANIZ ATION 04/20/2022 [facility] DATE CREATED AUTHOR AUTHOR'S ORGANIZ ATION 04/17/2024 [facility] DATE CREATED AUTHOR AUTHOR'S ORGANIZ ATION 04/25/2024 [facility] DATE CREATED AUTHOR AUTHOR'S ORGANIZ ATION 05/24/2024 [facility] EPIC Ordered Prescriptions (unrec ognized section and content) Prescription Sig Dispensed Refills Start Date End Da te oxyCODONE-acetaminophen (PERCOCET) 5-325 MG per tabletIndications:S/P laparoscopic surgery Take 1 tablet by mouth every 6 hours as needed for Pain for up to 5 days. 18 tablet 0 04/08/2022 04/13/2022 cyclobenzaprine (FLEXERIL) 10 MG tablet Take 1 tablet by mouth 3 times daily as needed for Muscle spasms 30 tablet 0 04/08/2022 04/18/2022 Scheduled Active and Recently Administ ered Medications (unrecognized section and content) Medication Order 04/06/2022 04/07/2022 04/08/2022 atorvastatin (LIPITOR) tablet 20 mg 20 mg, Oral, DAILY, First dose on Alysia 04/08/22 at 0900, Until Discontinued 15 (Given - Provider: mEma Gill) DULoxetine (CYMBALTA) extended release capsule 30 mg 30 mg, Oral, DAILY, First dose on Tue04/08/22 at 0900, Until Discontinued, Do not crush or break. May add contents of capsule to apple juice or apple sauce, but not chocolate. 0915 (Given - Provider: Emma Gill) enoxaparin (LOVENOX) injection 40 mg (CANCELED) 40 mg, SubCUTAneous, DAILY, First dose on Tue04/07/22 at 1300, Until Discontinued, Indication of Use: Prophylaxis-DVT/PE 1356 (Not Given - Provider: Leslie Landeros RN - Reason: Contraindicated - Comment: patient going to surgery today)1536 (NOV Hold - Provider: Shelby Autohold - Reason: Unreviewed Transfer Orders)2002 (NOV Unhold - Provider: Owen Hernandez RN) 0916 (Given - Provider: Emma Gill) famotidine (PEPCID) 20 mg in sodium chloride (PF) 10 mL injection (CANCELED) 20 mg, IntraVENous, 2 TIMES DAILY, First dose on Tue04/07/22 at 1300, Until Discontinued, IV Push over minimum of 2 minutes - Dilute with 10 mL NS 1422 (Given - Provider: Leslie Landeros RN)1536 (MAR Hold - Provider: Shelby Autohold - Reason: Unreviewed Transfer Orders)2002 (NOV Unhold - Provider: Owen Hernandez RN)222 (Given - Provider: Susy Damon RN) 0915 (Given - Provider: Emma Gill) hydroCHLOROthiazide (HYDRODIURIL) tablet 25 mg 25 mg, Oral, DAILY, First dose on Tue04/08/22 at 0900, Until Discontinued 31 (Not Given - Provider: Emma Gill - Reason: Other - Comment: BP 95/62) levothyroxine (SYNTHROID) tablet 125 mcg 125 mcg, Oral, DAILY, First dose on Tue04/08/22 at 0800, Until Discontinued, Tube feeding (TF) interaction, obtain physician order to manage, recommend holding TF for 30 minutes before and after dose. 0915 (Given - Provider: Emma Gill) magnesium sulfate 4000 mg in 100 mL IVPB premix (COMPLETED) 4,000 mg, IntraVENous, at 25 mL/hr, Administer over 4 Hours, ONCE, On Tue04/08/22 at 1045, For 1 dose, Recommended infusion rate not to exceed 1,000 mg (milligrams) per hour. 1241 (New Bag - Provider: Korin Fermin RN)1641 (Stopped - Provider: Korin Fermin RN) oxybutynin (DITROPAN) tablet 5 mg 5 mg, Oral, 2 TIMES DAILY, First dose on Tue04/08/22 at 0900, Until Discontinued 0915 (Given - Provider: Emma Gill)2100 (Due) pantoprazole (PROTONIX) tablet 20 mg 20 mg, Oral, DAILY, First dose on Tue04/08/22 at 0900, Until Discontinued, Do not crush or break. 0915 (Given - Provider: Emma Gill) phytonadione (ADULT) (VITAMIN K) 10 mg in dextrose 5 % 100 mL IVPB (COMPLETED) 10 mg, IntraVENous, at 100 mL/hr, Administer over 60 Minutes, ONCE, On Tue04/07/22 at 1500, For 1 dose 1506 (New Bag - Provider: Dacia Clark RN)1606 (Due: Stopped - Provider: Dacia Clark RN) sodium chloride flush 0.9 % injection 10 mL 10 mL, IntraVENous, EVERY 12 HOURS SCHEDULED (2 times per day), First dose on Tue04/07/22 at 2100, Until Discontinued 1536 (MAR Hold - Provider: Shelby Autohold - Reason: Unreviewed Transfer Orders)2002 (MAR Unhold - Provider: Owen Hernandez, [place])204 (Not Given - Provider: Susy Damon RN - Reason: IV Fluid Infusing) 0932 (Given - Provider: Emma Gill)2100 (Due - Provider: Owen Hernandez RN) sodium chloride flush 0.9 % injection 5-40 mL 5-40 mL, IntraVENous, EVERY 12 HOURS SCHEDULED (2 times per day), First dose on Tue04/07/22 at 2100, Until Discontinued, For Line Patency: Peripheral IV = 5 mL; Midline or Central Line = 10 mL/lumen. If following IV push medication, administer flush at same rate as the IV push. Flush volume is determined by type of infusion therapy being given. For non-viscous solutions use: Peripheral IV = 5 mL Midline or Central Line = 10 mL/lumen For viscous solutions (i.e. blood components, parenteral nutrition, contrast media, or after obtaining blood sample) use: Peripheral IV = 10 mL Midline or Central Line = 20 mL/lumen, PACU only 2042 (Not Given - Provider: Susy Damon RN - Reason: IV Fluid Infusing) 1149 (Not Given - Provider: Korin Fermin RN - Reason: IV Fluid Infusing)2100 (Due) warfarin (COUMADIN) tablet 5 mg 5 mg, Oral, ONCE Warfarin, 1 dose, On Alysia 04/08/22 at 1800, Indication of Use: History of DVT/PE (indefinite), What is the patient's goal INR? 2.0 - 3.0, Review INR prior to administration. Hazardous med- See facility policy for handling/disposal 1800 (Due) Continuous Medication Order 04/06/2022 04/07/2022 04/08/2022 lactated ringers infusion (CANCELED) IntraVENous, at 120 mL/hr, CONTINUOUS, Starting on Tue04/07/22 at 1245 1242 (New Bag - Provider: Leslie Landeros RN)1536 (NOV Hold - Provider: Shelby Autohold - Reason: Unreviewed Transfer Orders)2002 (NOV Unhold - Provider: Sheela Abreu DO) lactated ringers infusion IntraVENous, at 100 mL/hr, CONTINUOUS, Starting on Tue04/07/22 at 2030, For 4 hours 2029 (Due) PRN Medication Order 04/06/2022 04/07/2022 04/08/2022 0.9 % sodium chloride infusion IntraVENous, at 5-250 mL/hr, PRN, if patient receiving piggyback infusions and maintenance fluids are not ordered OR KVO fluids to protect IV site / prevent frequent line interruptions/ long duration, Starting on Tue04/07/22 at 1225, For piggyback infusion, administer at same rate as piggyback for a total of 25 mL. Enter 25 mL into dose field and piggyback rate into rate field of order. If piggyback is infusing at a rate less than 100 mL/hr, enter 25 mL into dose field and 100 mL/hr into rate field of order. For KVO fluids, enter rate of 20 mL/hr or less into rate field of order. 153 (NOV Hold - Provider: Shelby Autohold - Reason: Unreviewed Transfer Orders)2002 (NOV Unhold - Provider: Owen Hernandez RN) bupivacaine (MARCAINE) 0.5 % injection (CANCELED) PRN, Starting on Tue04/07/22 at 1910, Until Tue04/07/22 at 1924, Intra-op 1909 (Given - Provider: Shaniqua Pina, DO - Comment: Laparoscopic punctures) cyclobenzaprine (FLEXERIL) tablet 10 mg 10 mg, Oral, 3 TIMES DAILY PRN, Starting on Tue04/07/22 at 2002, Until Discontinued, Muscle spasms HYDROmorphone (DILAUDID) injection 1 mg (CANCELED) HYDROmorphone (DILAUDID) 1.5mg IV is equivalent to morphine 10mg IV, 1 mg, IntraVENous, EVERY 3 HOURS PRN, 6 doses, Starting on Tue04/07/22 at 2002, Until Tue04/08/22 at 0727, Pain Severe (7-10), If oral and IV narcotics ordered, use oral first and only use IV if oral is ineffective or cannot take oral. Do Not give oral and IV within 1 hour of each other unless specifically ordered. 2011 (Given - Provider: Susy Damon, [place]) 0505 (Given - Provider: Susy Damon RN) iohexol (OMNIPAQUE 240) injection 50 mL (COMPLETED) 50 mL, Oral, IMG ONCE PRN, 1 dose, Starting on Tue04/07/22 at 1148, Until Tue04/07/22 at 1204, Other 1204 (Given - Provider: Guru Newman) iopamidol (ISOVUE-370) 76 % injection 75 mL (COMPLETED) 75 mL, IntraVENous, IMG ONCE PRN, 1 dose, Starting on Tue04/07/22 at 1147, Until Tue04/07/22 at 1202, Other 1202 (Given - Provider: Guru Newman) ondansetron (ZOFRAN) injection 4 mg 4 mg, IntraVENous, EVERY 6 HOURS PRN, Starting on Tue04/07/22 at 1225, Until Discontinued, Nausea, Vomiting 1536 (NOV Hold - Provider: Shelby Autohold - Reason: Unreviewed Transfer Orders)2002 ([facility] Unhold - Provider: Owen Hernandez, RN) oxyCODONE-acetaminophen (PERCOCET) 5-325 MG per tablet 1 tablet Mg/kg dosing is based on the oxycodone component., 1 tablet, Oral, EVERY 6 HOURS PRN, Starting on Tue04/07/22 at 2002, Until Discontinued, Pain Severe (7-10), Maximum dose of acetaminophen is 4000 mg from all sources in 24 hours. 0212 (Given - Provid er: Susy Damon RN)1241 (Given - Provider: Korin Fermin RN) sodium chloride 0.9 % irrigation (COMPLETED) CONTINUOUS PRN, Starting on Tue04/07/22 at 1738, Intra-op 1738 (New Bag - Provider: Shaniqua Pina, DO - Comment: AVAILABLE ON BACKTABLE) sodium chloride flush 0.9 % injection 10 mL 10 mL, IntraVENous, PRN, Starting on Tue04/07/22 at 1225, Until Discontinued, Line Care, After every IV line use 1536 ([facility] Hold - Provider: Shelby Autohold - Reason: Unreviewed Transfer Orders)2002 ([facility] Unhold - Provider: Owne Hernandez, [place]) 0935 (Given - Provider: Emma Gill) sodium chloride flush 0.9 % injection 5-40 mL 5-40 mL, IntraVENous, PRN, Starting on Tue04/07/22 at 2002, Until Discontinued, Line Care, After every IV line use, For Line Patency: Peripheral IV = 5 mL; Midline or Central Line = 10 mL/lumen. If following IV push medication, administer flush at same rate as the IV push. Flush volume is determined by type of infusion therapy being given. For non-viscous solutions use: Peripheral IV = 5 mL Midline or Central Line = 10 mL/lumen For viscous solutions (i.e. blood components, parenteral nutrition, contrast media, or after obtaining blood sample) use: Peripheral IV = 10 mL Midline or Central Line = 20 mL/lumen, PACU only Care Teams (unrecognized sec tion and content) Generalist Relationship Specialty Start Date End Date Cathy Rangel [address] [place] [address] PCP - General Physician Ergonomist 04/20/19 Generalist Relationship Specialty Start Date End Date Cathy Rangel PA [address] [place] [address] PCP - [facility] 09/26/21 Shaw Bella MD [address] [place] [address] PCP - General Family Medicine 02/14/23 Generalist Relationship Specialty Start Date End Date Cathy Rangel PA [address] [place] [address] PCP - [facility] 09/26/21 Shaw Bella MD [address] [place] [address] PCP - General [facility] Medicine 02/14/23 Generalist Relationship Specialty Start Date End Date Cathy Rangel PA [address] [place] [address] PCP - [facility] 09/26/21 Shaw Bella MD [address] [place] [address] PCP - [facility] Medicine 02/14/23 Generalist Relationship Specialty Start Date End Date Cathy Rangel PA [address] [place] [address] PCP - [facility] 09/26/21 Shaw Bella MD [address] [place] [address] PCP - General Family Medicine 02/14/23 Team Status: Active Member Role Status Dates Nancy Elizabeth DO Primary Care Provider Active Team Status: Inactive Member Role Status Dates Raza Castro II, MD Attending Provider Active Start: November 10, 2023 End: November 10, 2023 Nancy Elizabeth DO Primary Care Provider Active Start: November 10, 2023 End: November 10, 2023 Team Status: Active Member Role Status Dates Nancy Elizabeth DO Primary Care Provider Active Start: November 10, 2023 Raza Castro II, MD Attending Provider Active Start: November 10, 2023 Team Status: Inactive Member Role Status Dates Nancy Elizabeth DO Primary Care Provider Active Start: November 10, 2023 End: November 10, 2023 Raza Castro II, MD Attending Provider Active Start: November 10, 2023 End: November 10, 2023 Team Status: Active Member Role Status Dates Nancy Elizabeth DO Primary Care Provider Active Start: November 16, 2023 Jose Rangel MD Attending Provider Active Sta rt: November 16, 2023 Team Status: Inactive Member Role Status Dates Nancy Elizabeth DO Primary Care Provider Active Start: November 16, 2023 End: November 16, 2023 Jose Rangel MD Attending Provider Active Sta rt: November 16, 2023 End: November 16, 2023 Team Status: Inactive Member Role Status Dates Nancy Elizabeth DO Primary Care Provider Active Start: December 08, 2023 End: December 08, 2023 Raza Castro II, MD Attending Provider Active Start: December 08, 2023 End: December 08, 2023 Team Status: Active Member Role Status Dates Nancy Elizabeth DO Primary Care Provider Active Start: December 08, 2023 Raza Castro II, MD Attending Provider Active Start: December 08, 2023 Team Status: Inactive Member Role Status Dates Nancy Elizabeth DO Primary Care Provider Active Start: March 26, 2024 End: March 26, 2024 Raza Castro II, MD Attending Provider Active Start: March 26, 2024 End: March 26, 2024 Team Status: Inactive Member Role Status Dates Raza Castro II, MD Attending Provider Active Start: April 18, 2024 End: April 18, 2024 Team Status: Active Member Role Status Dates NON STAFF Primary Care Provider Active Team Status: Inactive Member Role Status Dates Raza Castro II, MD Attending Provider Active Start: June 14, 2024 End: June 14, 2024 NON STAFF Primary Care Provider Active Start: June 14, 2024 End: June 14, 2024 Goals (unrecognized section and content) Goals may be documented in a n alternate sectionGoals may be documented in an alternate sectionGoals may be documented in an alternate sectionGoals may be documented in an alternate sectionGoals may be documented in an alternate sectionGoals may be documented in an alternate sectionGoals may be documented in an alternate section FOR RECORDS PERTAINING TO PATIENTS WHO ARE OR HAVE BEEN ENROLLED IN A CHEMICAL DEPENDENCY/SUBSTANCEABUSE PROGRAM, SOME INFORMATION MAY BE OMITTED. This clinical summary was aggregated from multiple sources. Caution should be exercised in using it in the provision of clinical care. This summary normalizes information from multiple sources, and as a consequence, information in this document may materially change the coding, format and clinical context of patient data. In addition, data may be omitted in some cases. CLINICAL DECISIONS SHOULD BE BASED ON THE PRIMARY CLINICAL RECORDS. [facility] [employer] provides no warranty or guarantee of the accuracy or completeness of information in this document.
== END 2024-06-26 19:56 | disposition home or self-care (01) ==
LOC: SLEEP 19:55
PROVIDERS: PCP Physician Assistant; Visit Provider Physician Assistant
DX: G47.33 Obstructive sleep apnea (adult) (pediatric) (principal)
CPT/HCPCS: 95811

== ENCOUNTER 2024-08-07 13:00 | Outpatient (OUT) | payer MEDICARE, SELFPAY | END 2024-08-07 13:01 | disposition home or self-care (01) | LOC: WC 08-13 10:09 | PROVIDERS: PCP Physician Assistant; Visit Provider Physician Assistant | DX: I87.313 Chronic venous hypertension (idiopathic) with ulcer of bilateral lower extremity (principal); L97.821 Non-pressure chronic ulcer of other part of left lower leg limited to breakdown of skin; L97.811 Non-pressure chronic ulcer of other part of right lower leg limited to breakdown of skin; I89.0 Lymphedema, not elsewhere classified | CPT/HCPCS: G0463 ==

== ENCOUNTER 2024-08-21 11:19 | Outpatient (OUT) | payer MEDICARE, SELFPAY | END 2024-08-21 11:20 | disposition home or self-care (01) | LOC: WC 11:20 | PROVIDERS: PCP Physician Assistant; Visit Provider Physician Assistant | DX: I87.312 Chronic venous hypertension (idiopathic) with ulcer of left lower extremity (principal); L97.821 Non-pressure chronic ulcer of other part of left lower leg limited to breakdown of skin; I87.311 Chronic venous hypertension (idiopathic) with ulcer of right lower extremity; L97.811 Non-pressure chronic ulcer of other part of right lower leg limited to breakdown of skin | CPT/HCPCS: G0463 ==

== ENCOUNTER 2024-09-11 10:06 | Outpatient (OUT) | payer MEDICARE, SELFPAY | END 2024-09-11 10:07 | disposition home or self-care (01) | LOC: WC 10:06 | PROVIDERS: PCP Physician Assistant; Visit Provider Physician Assistant | DX: I87.313 Chronic venous hypertension (idiopathic) with ulcer of bilateral lower extremity (principal); L97.821 Non-pressure chronic ulcer of other part of left lower leg limited to breakdown of skin; L97.811 Non-pressure chronic ulcer of other part of right lower leg limited to breakdown of skin | CPT/HCPCS: G0463 ==

== ENCOUNTER 2024-09-26 09:38 | Outpatient (RCR) | payer MEDICARE, SELFPAY | END 2024-09-28 15:16 | disposition home or self-care (01) | LOC: OT 09:38 | PROVIDERS: PCP Physician Assistant; Visit Provider Physician Assistant | DX: I89.0 Lymphedema, not elsewhere classified (principal) | CPT/HCPCS: 97140 ==